=== PATIENT | female | born 1950 | race Caucasian/White ===

== ENCOUNTER 2018-12-24 16:06 | Inpatient (IN) ==
--- NOTE | 2018-12-24 17:29 | Emergency Department Note ---
Disposition Clinical Impression: Symptomatic anemia Disposition: Admitted As Inpatient Condition: Fair Referrals: Trav Vivar DO [Primary Care Provider] - Forms: ED Satisfaction Letter Recheck wound or abnormal lab - General Chief Complaint: ED Recheck/Abnormal Lab/Rx Stated Complaint: Low Hemoglobin Time Seen by Provider: 12/24/18 16:39 Source: family Limitations: no limitations Nursing Notes Reviewed: Yes Vital Signs Reviewed: Yes - History of Present Illness HPI Narrative: Patient presents to the ED from her primary care physician's office for symptomatic anemia. Patient's hemoglobin was found to be 4 today. Does appear to be microcytic. Patient states she has felt more tired than usual lately, but this is been ongoing for the last several years. She does have asked some exertional dyspnea. Denies any chest pain, pressure or heaviness currently. She does complain of some postprandial epigastric abdominal pain. She has a previous history of peptic ulcer disease many years ago and states this feels similar. She denies any melena or hematochezia. Denies any weight loss, night sweats, fever or chills. States she really feels okay otherwise and thought she was just getting old. - Related Data Home Medications Medication Instructions Recorded Confirmed Aspirin Enteric Coated [Aspirin EC] 81 mg PO DAILY 10/04/15 11/11/15 Atorvastatin [Lipitor] 40 mg PO DAILY 10/04/15 11/11/15 Cyanocobalamin/Folic AC/Vit B6 1 each PO DAILY 10/04/15 11/11/15 [Folbic Tablet] Escitalopram [Lexapro] 20 mg PO DAILY 10/04/15 11/11/15 Insulin Glargine [Lantus] 30 unit SQ HS 10/04/15 11/11/15 Lisinopril [Zestril] 20 mg PO DAILY 10/04/15 11/11/15 Lisinopril/Hydrochlorothiazide 1 each PO DAILY 10/04/15 11/11/15 [Zestoretic 20-25 mg Tablet] Metformin HCl [Glucophage] 500 mg PO BID 10/04/15 11/11/15 cloNIDine HCl [CloNIDine HCl] 0.3 mg PO DAILY 10/04/15 11/11/15 Previous Rx's Medication Instructions Recorded Magnesium Oxide [Mag-Ox] 400 mg PO DAILY #30 tablet 10/06/15 Potassium Chloride 20 meq PO DAILY #30 tab.er.prt 10/06/15 Cefdinir [Omnicef] 300 mg PO BID #18 capsule 11/10/15 Clopidogrel [Plavix] 75 mg PO DAILY #30 tablet 11/10/15 Metoprolol [Lopressor] 50 mg PO BID #60 tablet 11/10/15 Allergies Allergy/AdvReac Type Severity Reaction Status Date / Time Erythromycin Base Allergy Hives Verified 12/29/15 17:40 NSAIDS (Non-Steroidal Allergy See Verified 10/04/15 13:39 Anti-Inflamma Comments shellfish derived Allergy See Verified 10/04/15 13:39 Comments Sulfa (Sulfonamide Allergy See Verified 12/29/15 17:40 Antibiotics) Comments Review of Systems: As reviewed in the HPI. All other systems reviewed are negative or normal. Past Medical History - Past Medical History Attestation: Yes The following information was validated with the patient. 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 - Social History Smoking Status: Former smoker Smokeless Tobacco Status: No Alcohol use: Reports: none Drug use: Reports: none Physical Exam CONSTITUTIONAL: [well appearing, alert and in no acute distress] EYES: [EOMI, clear , but very pale conjunctiva, PERRLA] HENT: [Normocephalic, atraumatic, moist mucus membranes, normal oropharynx] NECK: [normal inspection, full ROM, trachea midline, no obvious swelling] PULMONARY: [normal lung sounds bilaterally, normal chest rise and fall, no respiratory distress or stridor, no wheezes, no rales, no rhonchi CARDIOVASCULAR: [regular rate, regular rhythm, normal heart sounds, no murmurs, distal extremities are warm and well perfused] GASTROINSTESTINAL: [soft, non-tender, non-rigid, non-distended, no guarding, no rebound, normal bowel sounds] GENITOURINARY/RECTAL: [deferred] NEUROLOGIC: [Alert, oriented x3, normal speech, moves all extremities] EXTREMITIES: [Normal inspection, full ROM, no tenderness, no pedal edema, normal capillary refill] MUSCULOSKELETAL: [no gross deformities, atraumatic] SKIN: [No cyanosis, no diaphoresis, + pale, warm, no rash] PSYCHIATRIC: [normal mood and affect] - General Limitations: no limitations General appearance: alert Course Course Narrative: Patient presenting with symptomatic anemia. We will transfuse and admit Vital Signs Temperature 96.9 F L 12/24/18 16:30 Pulse Rate 62 12/24/18 16:30 Respiratory Rate 18 12/24/18 16:30 Blood Pressure 106/69 12/24/18 16:30 O2 Sat by Pulse Oximetry 99 12/24/18 16:30 Temperature 96.9 F L 12/24/18 16:30 Pulse Rate 62 12/24/18 16:30 Respiratory Rate 18 12/24/18 16:30 Blood Pressure 106/69 12/24/18 16:30 O2 Sat by Pulse Oximetry 99 12/24/18 16:30 Oxygen Delivery Oxygen Delivery Room Air Recheck wound or abnormal lab - Lab Data Result diagrams: 12/24/18 16:41 Lab Results 12/24/18 12/24/18 12/24/18 Range/Units 16:41 16:55 16:55 Reticulocyte # 0.08 (0.05-0.10) M/mcL Percent Retic 3.1 H (1.6-2.8) % Immature Retic Fraction 19.9 (11.0-38.0) % Retic Hgb Equivalent 14.9 L (28.61-36.33) pg Sodium 138 (136-145) mEq/L Potassium 5.0 (3.5-5.1) mEq/L Chloride 102 (98-107) mEq/L Carbon Dioxide 19 L (23-29) mEq/L BUN 26 H (8-23) mg/dL Creatinine 0.90 (0.60-1.20) mg/dL Est GFR ( Amer) > 60 (> 60) Est GFR (Non-Af Amer) > 60 (> 60) BUN/Creatinine Ratio 29 H (6-26) Glucose 78 (70-105) mg/dL Calculated Osmolality 290 (280-300) Calcium 9.6 (8.6-10.3) mg/dL Iron 11 L (50-170) mcg/dL % Saturation 2 L (15-50) % Transferrin 400 H (203-362) mg/dL Total Bilirubin 0.4 (0.3-1.0) mg/dL AST 13 (13-39) Units/L ALT 9 (7-52) Units/L Alkaline Phosphatase 33 L (34-104) Units/L Serum Total Protein 7.2 (6.4-8.9) g/dL Albumin 4.4 (3.5-5.7) g/dL Globulin 2.8 (2.4-3.5) g/dL Albumin/Globulin Ratio 1.6 (1.1-2.2) Blood Type Antibody Screen Crossmatch 12/24/18 Range/Units 17:39 Reticulocyte # (0.05-0.10) M/mcL Percent Retic (1.6-2.8) % Immature Retic Fraction (11.0-38.0) % Retic Hgb Equivalent (28.61-36.33) pg Sodium (136-145) mEq/L Potassium (3.5-5.1) mEq/L Chloride (98-107) mEq/L Carbon Dioxide (23-29) mEq/L BUN (8-23) mg/dL Creatinine (0.60-1.20) mg/dL Est GFR ( Amer) (> 60) Est GFR (Non-Af Amer) (> 60) BUN/Creatinine Ratio (6-26) Glucose (70-105) mg/dL Calculated Osmolality (280-300) Calcium (8.6-10.3) mg/dL Iron (50-170) mcg/dL % Saturation (15-50) % Transferrin (203-362) mg/dL Total Bilirubin (0.3-1.0) mg/dL AST (13-39) Units/L ALT (7-52) Units/L Alkaline Phosphatase (34-104) Units/L Serum Total Protein (6.4-8.9) g/dL Albumin (3.5-5.7) g/dL Globulin (2.4-3.5) g/dL Albumin/Globulin Ratio (1.1-2.2) Blood Type A POSITIVE Antibody Screen NEGATIVE Crossmatch See Detail
--- NOTE | 2018-12-24 17:59 | Emergency Department Note ---
Disposition Clinical Impression: Symptomatic anemia Disposition: Admitted As Inpatient Condition: Fair General Adult HPI - General Chief complaint: ED Recheck/Abnormal Lab/Rx Stated complaint: Low Hemoglobin Time Seen by Provider: 12/24/18 16:39 Source: family Limitations: no limitations Nursing Notes Reviewed: Yes Vital Signs Reviewed: Yes - History of Present Illness Pain Scale: 5 - Related Data Home Medications Medication Instructions Recorded Confirmed Aspirin Enteric Coated [Aspirin EC] 81 mg PO DAILY 10/04/15 11/11/15 Atorvastatin [Lipitor] 40 mg PO DAILY 10/04/15 11/11/15 Cyanocobalamin/Folic AC/Vit B6 1 each PO DAILY 10/04/15 11/11/15 [Folbic Tablet] Escitalopram [Lexapro] 20 mg PO DAILY 10/04/15 11/11/15 Insulin Glargine [Lantus] 30 unit SQ HS 10/04/15 11/11/15 Lisinopril [Zestril] 20 mg PO DAILY 10/04/15 11/11/15 Lisinopril/Hydrochlorothiazide 1 each PO DAILY 10/04/15 11/11/15 [Zestoretic 20-25 mg Tablet] Metformin HCl [Glucophage] 500 mg PO BID 10/04/15 11/11/15 cloNIDine HCl [CloNIDine HCl] 0.3 mg PO DAILY 10/04/15 11/11/15 Previous Rx's Medication Instructions Recorded Magnesium Oxide [Mag-Ox] 400 mg PO DAILY #30 tablet 10/06/15 Potassium Chloride 20 meq PO DAILY #30 tab.er.prt 10/06/15 Cefdinir [Omnicef] 300 mg PO BID #18 capsule 11/10/15 Clopidogrel [Plavix] 75 mg PO DAILY #30 tablet 11/10/15 Metoprolol [Lopressor] 50 mg PO BID #60 tablet 11/10/15 Allergies Allergy/AdvReac Type Severity Reaction Status Date / Time Erythromycin Base Allergy Hives Verified 12/29/15 17:40 NSAIDS (Non-Steroidal Allergy See Verified 10/04/15 13:39 Anti-Inflamma Comments shellfish derived Allergy See Verified 10/04/15 13:39 Comments Sulfa (Sulfonamide Allergy See Verified 12/29/15 17:40 Antibiotics) Comments Past Medical History - Past Medical History Medical history: Reports: diabetes, hyperlipidemia, hypertension, TIA, other Surgical history: Reports: orthopedic, other Psychiatric history: Reports: no psych history 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 - Social History Smoking Status: Former smoker Smokeless Tobacco Status: No Alcohol use: Reports: none Drug use: Reports: none Physical Exam - General Limitations: no limitations General appearance: alert Course Vital Signs Temperature 96.9 F L 12/24/18 16:30 Pulse Rate 62 12/24/18 16:30 Respiratory Rate 18 12/24/18 16:30 Blood Pressure 106/69 12/24/18 16:30 O2 Sat by Pulse Oximetry 99 12/24/18 16:30 Temperature 97.6 F 12/24/18 20:22 Pulse Rate 62 12/24/18 20:22 Respiratory Rate 18 12/24/18 20:22 Blood Pressure 111/47 12/24/18 20:22 O2 Sat by Pulse Oximetry 99 12/24/18 16:30 Oxygen Delivery Oxygen Delivery Room Air Medical Decision Making - MDM Narrative Medical decision making narrative: 1899 hrs. due to her hemoglobin were in agreement transfers 2 units of packed red blood cells and admit. 2011 hrs.: Patient was except to the hospitalist service. She is in agreement with plan. Waiting on her packed red blood cells transfusion admit. 2034 hrs.: Patient said she felt like her blood sugars OL the nurse checked it was 50 regular some dextrose and she can actually have some liquids. She may end up with a colonoscopy tomorrow but I think it is okay for her to eat up to midnight today. - Lab Data Result diagrams: 12/24/18 16:41 Lab Results 12/24/18 12/24/18 12/24/18 Range/Units 16:41 16:55 16:55 Reticulocyte # 0.08 (0.05-0.10) M/mcL Percent Retic 3.1 H (1.6-2.8) % Immature Retic Fraction 19.9 (11.0-38.0) % Retic Hgb Equivalent 14.9 L (28.61-36.33) pg Sodium 138 (136-145) mEq/L Potassium 5.0 (3.5-5.1) mEq/L Chloride 102 (98-107) mEq/L Carbon Dioxide 19 L (23-29) mEq/L BUN 26 H (8-23) mg/dL Creatinine 0.90 (0.60-1.20) mg/dL Est GFR ( Amer) > 60 (> 60) Est GFR (Non-Af Amer) > 60 (> 60) BUN/Creatinine Ratio 29 H (6-26) Glucose 78 (70-105) mg/dL Calculated Osmolality 290 (280-300) Calcium 9.6 (8.6-10.3) mg/dL Iron 11 L (50-170) mcg/dL % Saturation 2 L (15-50) % Transferrin 400 H (203-362) mg/dL Total Bilirubin 0.4 (0.3-1.0) mg/dL AST 13 (13-39) Units/L ALT 9 (7-52) Units/L Alkaline Phosphatase 33 L (34-104) Units/L Serum Total Protein 7.2 (6.4-8.9) g/dL Albumin 4.4 (3.5-5.7) g/dL Globulin 2.8 (2.4-3.5) g/dL Albumin/Globulin Ratio 1.6 (1.1-2.2) Blood Type Antibody Screen Crossmatch 12/24/18 Range/Units 17:39 Reticulocyte # (0.05-0.10) M/mcL Percent Retic (1.6-2.8) % Immature Retic Fraction (11.0-38.0) % Retic Hgb Equivalent (28.61-36.33) pg Sodium (136-145) mEq/L Potassium (3.5-5.1) mEq/L Chloride (98-107) mEq/L Carbon Dioxide (23-29) mEq/L BUN (8-23) mg/dL Creatinine (0.60-1.20) mg/dL Est GFR ( Amer) (> 60) Est GFR (Non-Af Amer) (> 60) BUN/Creatinine Ratio (6-26) Glucose (70-105) mg/dL Calculated Osmolality (280-300) Calcium (8.6-10.3) mg/dL Iron (50-170) mcg/dL % Saturation (15-50) % Transferrin (203-362) mg/dL Total Bilirubin (0.3-1.0) mg/dL AST (13-39) Units/L ALT (7-52) Units/L Alkaline Phosphatase (34-104) Units/L Serum Total Protein (6.4-8.9) g/dL Albumin (3.5-5.7) g/dL Globulin (2.4-3.5) g/dL Albumin/Globulin Ratio (1.1-2.2) Blood Type A POSITIVE Antibody Screen NEGATIVE Crossmatch See Detail Critical Care Time Critical Care Time: Yes Total Critical Care Time: 45 Attestation: Excluding a separately billable procedures. Attestation Statement - Attestation Attestation: This documentation is done with the assistance of Dragon dictation. Despite efforts made to ensure accuracy, there may be inaccuracies in tool repairer bench or spelling and typographical errors. I examined this patient and my medical decision-making was reviewed with the Resident Physician. I agree with the documented findings, disposition and treatment plan as described except to the extent set forth below. Patient seen and evaluated by Dr. Swain and myself, I agree with his evaluation management plan, I supervised the care of the patient's stay. Patient comes in today from outpatient office where she was found to have a hemoglobin 4. She in our computer had a blood draw back in 2016 hemoglobin was low but was at least double this. She has had increased tiredness and some dyspnea. Were going to type and screen her check labs of bringing her into the hospital for workup. She is in agreement with plan.
[2018-12-24 18:16] LABS: Immature Reticulocyte % 19.9 % (11.0-38.0); Retculocyte # 0.08 M/mcL (0.05-0.10); Reticulocyte % 3.1 % (1.6-2.8)
[2018-12-24 18:33] LABS: % Iron Saturation 2 % (15-50); Iron 11 mcg/dL (50-170); Transferrin 400 mg/dL (203-362)
[2018-12-24 18:34] LABS: Alanine Aminotransferase 9 Units/L (7-52); Albumin 4.4 g/dL (3.5-5.7); Albumin/Globulin Ratio 1.6 (1.1-2.2); Alkaline Phosphatase 33 Units/L (34-104); Aspartate Amino Transferase 13 Units/L (13-39); BUN/Creatinine Ratio 29 (6-26); Bilirubin,Total 0.4 mg/dL (0.3-1.0); Blood Urea Nitrogen 26 mg/dL (8-23); Calcium 9.6 mg/dL (8.6-10.3); Carbon Dioxide 19 mEq/L (23-29); Chloride 102 mEq/L (98-107); Globulin 2.8 g/dL (2.4-3.5); Glucose 78 mg/dL (70-105); Osmolality,Calculated 290 (280-300); Sodium 138 mEq/L (136-145); Total Protein 7.2 g/dL (6.4-8.9); eGFR For Non-African Americans > 60 (> 60)
[2018-12-24] MEDS ORDERED: 0.9 % Sodium Chloride 1,000 ML ONE (20:02)
[2018-12-24] MEDS ORDERED: *HR* Dextrose 50 % in Water (Syg) 50 ML SYRINGE IVP ONE (20:34)
[2018-12-24] MEDS ORDERED: *HR* Dextrose 50 % in Water (Syg) 50 ML SYRINGE IVP PRN (22:14)
[2018-12-24] MEDS ORDERED: Naloxone 0.4 MG/ML INJ IVP PRN (22:14)
[2018-12-24] MEDS ORDERED: Dextrose Gel 15 GM/37.5 ML TUBE PO PRN ×2 (22:14)
[2018-12-24] MEDS ORDERED: Dextrose 4 GM Chewable Tablets PO PRN ×2 (22:14)
[2018-12-24] MEDS ORDERED: D5% in Water 1,000 ML IVC PRN (22:14)
[2018-12-24] MEDS ORDERED: 0.9 % Sodium Chloride 250 ML ONE (22:44)
[2018-12-24] MEDS: Pantoprazole 40 MG in 0.9 % Sodium Chloride Mini Bag 100 ML IVC SCH (23:12)
[2018-12-24] MEDS: Sucralfate 1 GM TABLET PO SCH (23:12)
[2018-12-24 23:25] LABS: Activated Partial Thrombo Time 34.9 Seconds (26.0-36.0)
[2018-12-24 23:41] LABS: INR 1.4; Prothrombin Time 15.7 Seconds (9.4-12.1)
[2018-12-25] MEDS: Insulin LISPRO 300 UNITS/3 ML VIAL SQ SCH ×5 (00:06→22:29)
--- NOTE | 2018-12-25 01:00 | Internal Med History&Physical ---
Date of Encounter: 12/24/18 Time of Encounter: 20:50 Internal Medicine - H&P: HPI Chief complaint: wekaness, lightheaded, ROUSE Admitted From: Emergency Dept Plans for Post Hospital Care: Home History of present illness: Ms. Ellsworth is a 68 year old female presents with a several week history of fatigue, weakness, lightheadedness, dizziness, occasional bouts of syncope, and with dyspnea on exertion. She was found to be profoundly anemic by lab analysis by her PCP. She was sent to the ER for evaluation and treatment and admission. Of note, her hemoglobin was 4.1. She was typed and crossed, started on PRBC transfusion, and admitted to hospitaist service. Upon my assessment of the patient in ER, patient is lying in bed comfortably without any distress. She is pale white and weak. She denies any chest pain, shortness of breath, or lightheadedness at this time. However, if she tries to stand up or ambulates, she gets profoundly symptomatic according to patient and her . Her states the symptoms have been present for several months actually rather than weeks. However, she has been mostly symptomatic over the last few weeks. She admits to having had melena for several weeks. She denies any coffee-ground emesis, hematemesis, or hematochezia. She does take a daily aspirin and Plavix. She denies any excessive NSAID use or abuse. She does not drink alcohol. She does have a prior stroke and therefore takes aspirin and Plavix. She denies any chronic anticoagulation. She did had a colonoscopy about 5 years ago, which was reportedly negative. She does have a history of gastric ulcers about 30 years ago. Past Med Surg Social Fam HX - Past Medical History Attestation: Yes The following information was validated with the patient. Source: patient, old records reviewed, obtained from family Medical history: diabetes, hyperlipidemia, hypertension, TIA, other Additional medical history: Anemia Psychiatric history: no psych history - Past Surgical History Surgical History: orthopedic, other Additional surgical history: RIGHT FOOT SX, NECK SX. - Social History Smoking Status: Former smoker Smokeless Tobacco Status: No Alcohol use: none Drug use: none Current living situation: Home, With Family Activity Level: Independent ambulation Recent Out of Country Travel Within the Last 8 Weeks: No - Family History Mother Adopted: No Family Member Ethnicity: Non- Living Status: Hx Family Cardiac Disorders: Yes Hx Family Endocrine Disorder: Yes Internal Medicine - H&P: Meds Aspirin Enteric Coated [Aspirin EC] 81 mg PO DAILY 10/04/15 [History] Atorvastatin [Lipitor] 40 mg PO DAILY 10/04/15 [History] Cyanocobalamin/Folic AC/Vit B6 [Folbic Tablet] 1 each PO DAILY 10/04/15 [History] Escitalopram [Lexapro] 20 mg PO DAILY 10/04/15 [History] Insulin Glargine [Lantus] 30 unit SQ HS 10/04/15 [History] Lisinopril [Zestril] 20 mg PO DAILY 10/04/15 [History] Lisinopril/Hydrochlorothiazide [Zestoretic 20-25 mg Tablet] 1 each PO DAILY 10/04/15 [History] Metformin HCl [Glucophage] 500 mg PO BID 10/04/15 [History] cloNIDine HCl [CloNIDine HCl] 0.3 mg PO DAILY 10/04/15 [History] Magnesium Oxide [Mag-Ox] 400 mg PO DAILY #30 tablet 10/06/15 [Rx] Potassium Chloride 20 meq PO DAILY #30 tab.er.prt 10/06/15 [Rx] Cefdinir [Omnicef] 300 mg PO BID #18 capsule 11/10/15 [Rx] Clopidogrel [Plavix] 75 mg PO DAILY #30 tablet 11/10/15 [Rx] Metoprolol [Lopressor] 50 mg PO BID #60 tablet 11/10/15 [Rx] Allergy/AdvReac Type Severity Reaction Status Date / Time Erythromycin Base Allergy Hives Verified 12/29/15 17:40 NSAIDS (Non-Steroidal Allergy See Verified 10/04/15 13:39 Anti-Inflamma Comments shellfish derived Allergy See Verified 10/04/15 13:39 Comments Sulfa (Sulfonamide Allergy See Verified 12/29/15 17:40 Antibiotics) Comments - Constitutional Constitutional: no chills, no fever(s), no night sweats - EENT Eyes: no blurry vision, no change in vision Ears: no ear pain, no tinnitus Nose, mouth and throat: no nasal congestion, no sinus pressure, no sore throat - Cardiovascular Cardiovascular ROS IM: dyspnea on exertion, lightheadedness, no chest pain, no dyspnea, no orthopnea, no paroxysmal nocturnal dyspnea, no syncope - Respiratory Respiratory: no cough, no hemoptysis, no chest congestion, no excessive phlegm production, no change in phlegm color - Gastrointestinal Gastrointestinal: early satiety, melena, no abdominal pain, no diarrhea, no heartburn, no hematemesis, no hematochezia, no vomiting - Genitourinary Genitourinary: no dysuria, no flank pain, no hematuria - Musculoskeletal Musculoskeletal ROS IM: no arthralgias, no back pain - Integumentary Integumentary IM: no rash, no jaundice - Neurological Neurological ROS: no disequilibrium, no dizziness, no focal weakness, no frequent falls, no headache(s) - Psychiatric Psychiatric: no anxiety, no depression - Endocrine Endocrine IM: no polydipsia, no polyuria - Allergic/Immunologic Allergic/Immunologic: GI upset with certain foods - Constitutional Vitals: Temp Pulse Resp BP Pulse Ox 98.4 F 61 20 132/73 91 12/25/18 00:32 12/25/18 00:32 12/25/18 00:32 12/25/18 00:32 12/25/18 00:32 General appearance: Present: cooperative, A&O X 3, pleasant, no acute distress, answers questions appropriately Exam: pale - Head Head exam: Present: atraumatic, normal inspection - Eye Eye exam: Present: PERRL. Absent: scleral icterus, conjuntiva pink Pupils: Present: normal accommodation - ENT ENT exam: Present: mucous membranes dry, normal exam, normal oropharynx - Neck Neck exam general surgery: Present: full ROM, supple, trachea midline. Absent: tenderness, nuchal rigidity, thyromegaly - Respiratory Respiratory exam: Present: CTAB. Absent: chest wall tenderness, rales, rhonchi, wheezes - Cardiovascular Cardiovascular exam: Present: RRR, +S1, +S2. Absent: diastolic murmur, systolic murmur - GI/Abdominal GI/Abdominal exam: Present: normal bowel sounds, soft. Absent: guarding, hepatomegaly, mass, rebound, splenomegaly, tenderness - Extremities Exam Extremities exam: Present: warm, radial pulses palpable and symmetrical. Absent: normal capillary refill (delayed at 3-4 seconds), pedal edema, tenderness - Back Exam Back exam: Absent: CVA tenderness (L), CVA tenderness (R) - Neurological Exam Neurological exam: Present: alert, CN II-XII intact, oriented X3, strengths equal and symetr throughout - Psychiatric Psychiatric exam: Present: normal affect, normal mood - Skin Skin exam: Present: dry, intact, pallor. Absent: warm (warm centrally; cool extremities) Internal Med - H&P Results - Labs CBC & Chem 7: 12/24/18 16:41 Labs: BMP 12/24/18 16:41 Sodium 138 Potassium 5.0 Chloride 102 Carbon Dioxide 19 L BUN 26 H Creatinine 0.90 Glucose 78 Calcium 9.6 Liver Function 12/24/18 Range/Units 16:41 Total Bilirubin 0.4 (0.3-1.0) mg/dL AST 13 (13-39) Units/L ALT 9 (7-52) Units/L Alkaline Phosphatase 33 L (34-104) Units/L Albumin 4.4 (3.5-5.7) g/dL Labs from her PCP office include the following: WBC 6.0 Hemoglobin 4.1 Hematocrit 17.6 Platelets 208 PT 15.7 INR 1.4 PTT 34.9 - EKG Data -: EKG Interpreted by Myself - EKG Data Prior EKG available for review: no EKG comments: 12/25/18 01:06 NSR; no acute ST changes - Assessment and Plan (1) Symptomatic anemia Current Visit: Yes Status: Acute Assessment and plan: 1. Will transfuse PRBC's. 2. Monitor H/H serially. 3. Monitor on telemetry. 4. Consult GI for EGD +/- colonoscopy. (2) Chronic upper GI bleeding Current Visit: Yes Status: Acute Assessment and plan: 1. Will place on Protonix drip, oral carafate, and stop ASA/Plavix for now. 2. GI consult for endoscopy. 3. Care as above otherwise. (3) IDDM (insulin dependent diabetes mellitus) Current Visit: Yes Status: Chronic Assessment and plan: 1. Hold home meds. 2. Will place on SSI and monitor glucose closely while npo. (4) DVT prophylaxis Current Visit: Yes Status: Acute Assessment and plan: 1. EPCD's.
[2018-12-25] MEDS ORDERED: 0.9 % Sodium Chloride 250 ML ONE (02:20)
[2018-12-25] MEDS: Pantoprazole 40 MG in 0.9 % Sodium Chloride Mini Bag 100 ML IVC SCH ×3 (03:32→15:07)
[2018-12-25 06:38] LABS: Basophils % 0.8 %; Eosinophils % 2.5 %; Hematocrit 32.1 % (35.3-44.9); Nucleated Red Blood Cells 0.6 /100 WBC (0); Segmented Neutrophils % 66.2 %
[2018-12-25 06:40] LABS: Eosinophils # 0.1 K/mcL (0.0-0.6); Hemoglobin 9.5 g/dL (11.5-15.4); Immature Granulocytes % 0.4 % (0-4); Immature Platelets 8.9 % (1.1-6.1); Lymphocytes # 1.1 K/mcL (0.6-4.6); Lymphocytes % 20.6 %; Mean Corpuscular HGB Conc 29.6 g/dL (31.6-35.5); Mean Corpuscular Hemoglobin 22.9 pg (28.0-33.3); Mean Corpuscular Volume 77.5 fL (83.0-100.0); Monocytes # 0.5 K/mcL (0.0-1.3); Monocytes % 9.5 %; Neutrophils # 3.4 K/mcL (1.6-8.9); Platelet Count 148 K/mcL (140-400); Red Blood Count 4.14 M/mcL (3.82-4.97); Red Cell Distribution Width 19.1 % (11.5-14.5)
[2018-12-25 06:57] LABS: Alanine Aminotransferase 8 Units/L (7-52); Albumin 3.9 g/dL (3.5-5.7); Albumin/Globulin Ratio 1.6 (1.1-2.2); Alkaline Phosphatase 30 Units/L (34-104); Aspartate Amino Transferase 11 Units/L (13-39); BUN/Creatinine Ratio 27 (6-26); Bilirubin,Total 1.3 mg/dL (0.3-1.0); Blood Urea Nitrogen 20 mg/dL (8-23); Calcium 9.2 mg/dL (8.6-10.3); Carbon Dioxide 25 mEq/L (23-29); Chloride 103 mEq/L (98-107); Globulin 2.5 g/dL (2.4-3.5); Glucose 98 mg/dL (70-105); Magnesium 1.7 mg/dL (1.6-2.6); Osmolality,Calculated 287 (280-300); Potassium 3.8 mEq/L (3.5-5.1); Sodium 137 mEq/L (136-145); Total Protein 6.4 g/dL (6.4-8.9); eGFR For Non-African Americans > 60 (> 60)
[2018-12-25 07:18] LABS: Anisocytosis 2+ (Not Present); Hypochromasia Present (Not Present); Microcytosis Present (Not Present); Platelet Estimate Normal (Normal)
[2018-12-25] MEDS: Sucralfate 1 GM TABLET PO SCH ×4 (08:35→22:29)
[2018-12-25 08:37] LABS: Estimated Average Glucose 131 mg/dl; Hemoglobin A1C 6.2 %
[2018-12-25] MEDS: Acetaminophen 325 MG TABLET PO PRN (10:06)
--- NOTE | 2018-12-25 11:13 | Gastroenterology Consult Note ---
Date of Encounter: 12/25/18 Time of Encounter: 10:00 - Assessment and plan (1) UGI bleed Current Visit: Yes Status: Acute Assessment and plan: -Likely 2/2 duodenal ulcer -Epigastric pain worse 20-30 min after eating with symptomatic anemia -Placed on protonix infusion and carafate -Hgb 4.1, retic 3.1, BUN 26 on arrival and received 3 units prbc -Hgb 9.5, MCV 77.5, BUN 20 today -Fe and %sat low with high transferrin on arrival -Will get EGD today for UGI bleeding assessment and monitor H&H for additional transfusion needs (2) Symptomatic anemia Current Visit: Yes Status: Acute Assessment and plan: -As above - Time Spent With Patient Total time spent is greater than 50% in coordination of care (as documented) at patient's floor/unit and/or counseling patient: GI History of Present Illness - Data of Consult Patient: new to practice Consult date: 12/25/18 Requesting Physician: Buck Dasilva MD - Consult Narrative Reason for consult: GI bleed History of present illness: Ms. Ellsworth is a 68 year old female with pmh significant for prior gastric ulcer with bleed, HTN, HLD, DM. She has had increasing fatigue, weakness, dizziness, and dyspnea on exertion with questionable syncope over the last 3-4 months. Over the last few weeks however symptoms have been worse and noticed melena during this time along with epigastric pain that is worse about 20-30 min after eating. She has had similar symptoms 5-6 years ago and found bleeding ulcer on EGD. She was placed on ppi after but has not taken it for a number of years. She was evaluated at pcp and found to be severely anemic and sent to ED. In the ED she was found to have a hgb of 4.14 and started on pantoprazole infusion, carafate and given 3 units prbc. She denies diplopia, blurry vision, chest pain, palpitations, N/V, hematemesis, abdominal pain elsewhere,hematochezia, hematuria, nsaid use other than her asa. She additionally takes clopidogrel and rivaroxaban after prior cva. Past Med Surg Social Fam HX - Past Medical History Medical history: diabetes, hyperlipidemia, hypertension, TIA, other Additional medical history: Anemia Psychiatric history: no psych history - Past Surgical History Surgical History: orthopedic, other Additional surgical history: RIGHT FOOT SX, NECK SX. - Social History Smoking Status: Former smoker Smokeless Tobacco Status: No Alcohol use: none Drug use: none - Family History Mother Adopted: No Family Member Ethnicity: Non- Living Status: Hx Family Cardiac Disorders: Yes Hx Family Endocrine Disorder: Yes - Constitutional Vitals: Temp Pulse Resp BP Pulse Ox 97.6 F 74 18 151/81 94 12/25/18 09:08 12/25/18 09:08 12/25/18 09:08 12/25/18 09:08 12/25/18 09:08 General appearance: Present: cooperative, A&O X 3, pleasant, no acute distress, answers questions appropriately - Head Head exam: Present: atraumatic, normal inspection, normocephalic - Eye Eye exam: Absent: normal appearance, scleral icterus, conjuntiva pink - ENT ENT exam: Present: mucous membranes dry - Neck Neck exam general surgery: Present: supple, trachea midline - Respiratory Respiratory exam: Present: CTAB. Absent: accessory muscle use, chest wall tenderness, decreased breath sounds, prolonged expiratory phase, rales, respiratory distress, rhonchi, stridor, wheezes, tachypnea - Cardiovascular Cardiovascular exam: Present: RRR, +S1, +S2. Absent: bradycardia, clicks, diastolic murmur, distant heart sounds, gallop, irregular rhythm, JVD, rubs, +S 3, +S4, systolic murmur, tachycardia - GI/Abdominal GI/Abdominal exam: Present: soft, tenderness (epigastric), no peritoneal signs. Absent: distended, firm, guarding, hepatomegaly, rebound, rigid, splenomegaly - Extremities Exam Extremities exam: Present: normal capillary refill, normal inspection, warm, radial pulses palpable and symmetrical. Absent: calf tenderness, cyanotic, mottling, pedal edema, tenderness - Neurological Exam Neurological exam: Present: alert, CN II-XII intact, no focal deficits. Absent: facial droop, speech deficit - Psychiatric Psychiatric exam: Present: normal affect, normal mood - Skin Skin exam: Present: dry, intact, pallor, warm. Absent: abrasion, cyanosis, diaphoretic, erythema, excoriation, mottled, normal color, petechiae, rash, urticaria, vesicles Results - Labs CBC & Chem 7: 02/26/19 05:47 12/25/18 05:47 Labs: Last Result Calcium 9.2 mg/dL (8.6-10.3) 12/25/18 05:47 Iron 11 mcg/dL (50-170) L 12/24/18 16:55 % Saturation 2 % (15-50) L 12/24/18 16:55 Transferrin 400 mg/dL (203-362) H 12/24/18 16:55 Entire Visit Hgb 9.5 g/dL (11.5-15.4) L D 12/25/18 05:47 Hct 32.1 % (35.3-44.9) L 12/25/18 05:47 PT 15.7 Seconds (9.4-12.1) H 12/24/18 22:56 Total Bilirubin 1.3 mg/dL (0.3-1.0) H 12/25/18 05:47 AST 11 Units/L (13-39) L 12/25/18 05:47 ALT 8 Units/L (7-52) 12/25/18 05:47 - ABG ABG results: PT/INR, D-dimer PT 15.7 Seconds (9.4-12.1) H 12/24/18 22:56 Consult Discharge Plan - Plan Referrals: Trav Vivar DO [Primary Care Provider] -
[2018-12-25 11:20] LABS: Hematocrit 33.4 % (35.3-44.9); Hemoglobin 10.2 g/dL (11.5-15.4)
--- NOTE | 2018-12-25 12:55 | Anesthesia Evaluation PreOp ---
Date of Encounter: 12/25/18 Time of Encounter: 12:52 - Past History Planned Operation: EGD Cardiac History: HTN, Hyperlipidemia Pulmonary History: Denies Any Significant HX DESK SERGEANT History: TIA Other Medical History: Other (GI bleed, anemia) Anesthesia History: No Prior Anesthetic Complications, Past Anesthesia (R foot, neck) Alcohol Use: none Drug use: none Medications and Allergies Aspirin Enteric Coated [Aspirin EC] 81 mg PO DAILY 10/04/15 [History] Atorvastatin [Lipitor] 40 mg PO DAILY 10/04/15 [History] Cyanocobalamin/Folic AC/Vit B6 [Folbic Tablet] 1 each PO DAILY 10/04/15 [History] Escitalopram [Lexapro] 20 mg PO DAILY 10/04/15 [History] Insulin Glargine [Lantus] 30 unit SQ HS 10/04/15 [History] Lisinopril [Zestril] 20 mg PO DAILY 10/04/15 [History] Lisinopril/Hydrochlorothiazide [Zestoretic 20-25 mg Tablet] 1 each PO DAILY 10/04/15 [History] Metformin HCl [Glucophage] 500 mg PO BID 10/04/15 [History] cloNIDine HCl [CloNIDine HCl] 0.3 mg PO DAILY 10/04/15 [History] Magnesium Oxide [Mag-Ox] 400 mg PO DAILY #30 tablet 10/06/15 [Rx] Potassium Chloride 20 meq PO DAILY #30 tab.er.prt 10/06/15 [Rx] Clopidogrel [Plavix] 75 mg PO DAILY #30 tablet 11/10/15 [Rx] Metoprolol [Lopressor] 50 mg PO BID #60 tablet 11/10/15 [Rx] Rivaroxaban [Xarelto] 20 mg PO DAILY@1700 12/25/18 [History] Allergy/AdvReac Type Severity Reaction Status Date / Time Erythromycin Base Allergy Hives Verified 12/29/15 17:40 NSAIDS (Non-Steroidal Allergy See Verified 10/04/15 13:39 Anti-Inflamma Comments shellfish derived Allergy See Verified 10/04/15 13:39 Comments Sulfa (Sulfonamide Allergy See Verified 12/29/15 17:40 Antibiotics) Comments - Meds/Allergy Pre-op Review Medications Reviewed: Yes Allergies Reviewed: Yes Beta Blockers on Current Med List: No Anesthesia Results - Labs 12/25/18 10:47 12/25/18 05:47 - Imaging EKG: report reviewed (NSR) Additional studies: Impressions: LVEF 60%. Normal left ventricular structure and function. Normal right ventricular structure and function. No evidence of PFO with agitated saline contrast. This was a limited study. See prior report dated 10/05/2015 for further details. Anesthesia Exam Vital Signs/O2 Sat, Most Current Temp Pulse Resp BP Pulse Ox 98.4 F 66 18 132/65 92 12/25/18 11:13 12/25/18 11:13 12/25/18 11:13 12/25/18 11:13 12/25/18 11:13 Weight: 62kg NPO (# of Hours): >8 - HEENT Pupil (Motor): Pupils equal, EOMI Mallampati: II Teeth: Normal Oral Opening: Greater than 3 - DESK SERGEANT LOC: Oriented DESK SERGEANT Motor: Normal RUE, Normal LUE, Normal RLE, Normal LLE, Normal Face DESK SERGEANT Sensory: Normal: RUE, LUE, RLE, LLE, Face - Cardiac Rhythm: Regular - Pulmonary Breath Sounds: bilateral Clear Respiratory Effort: Symmetrical Anesthesia Assess/Plan ASA Score: 3 (HTN, hyperlipidemia, TIA, GI bleed) Level of consciousness: Cooperative Anesthetic Plan: MAC Monitoring Plan: Standard Monitors Recovery Plan: PACU
--- NOTE | 2018-12-25 13:41 | Internal Med Progress Note ---
Hospitalist Progress Note - Encounter Date of Encounter: 12/25/18 Time of Encounter: 13:38 - Subjective Interval History: I have seen and evaluated the patient at bedside. patient denies chest pain, shortness of breath, nausea or vomiting. - Exam Vitals: Temp Pulse Resp BP Pulse Ox 98.4 F 66 18 132/65 92 12/25/18 11:13 12/25/18 11:13 12/25/18 11:13 12/25/18 11:13 12/25/18 11:13 Exam: Vitals: Reviewed General: Alert and oriented x4. In no distress. Cardiovascular: RRR, normal S1 & S2, no rubs, murmurs or gallops. No JVD. Pulse regular. Lungs: scattered b/l wheezes, no crackles. Abdomen: Soft, non-tender, no rigidity. Extremities: No deformity, no edema or tenderness, no joint swelling or clubbing. Neurological: Normal cognition and motor skills. Rest of the physical exam is non contributory - Assessment and Plan (1) Symptomatic anemia Current Visit: Yes Status: Acute Assessment and Plan: patient s/p 3 units of PRBCs transfusion. on PPI and sulcrafate 1gm/PO QID patient scheduled for GI work up NPO, on accu-checks Q6HRs plus lispro low dose sliding scale (2) UGI bleed Current Visit: Yes Status: Acute Assessment and Plan: plan of care as above (3) Hypertension Current Visit: No Status: Chronic Assessment and Plan: patient on metoprolol 50mg/PO BID and lisinopril. will resume home medications. (4) Insulin dependent diabetes mellitus Current Visit: No Status: Chronic Assessment and Plan: patient is NPO for GI work up. continue lispro low dose sliding scale Q6HRs. (5) Hyperlipemia Current Visit: No Status: Chronic Assessment and Plan: will resume atorvastatin 40mg/PO daily (6) History of CVA (cerebrovascular accident) Current Visit: No Status: Chronic Assessment and Plan: patient on aspirin and plavix. held due to anemia and possible GI bleeding DVT Prophylaxis: intermittent pneumatic compression. - Summary of Assessment and Plan Summary of Assessment and Plan: patient to remain in the hospital to complete GI work up. potential discharge tomorrow - Time Spent with Patient Total time spent is greater than 50% in coordination of care (as documented) at patient's floor/unit and/or counseling patient: Greater than 35 minutes (40) Plan of Care Discussed with: patient (and the nurse) Internal Medicine: Result - Labs CBC & Chem 7: 12/25/18 10:47 12/25/18 05:47 Labs: Short CBC 12/25/18 12/25/18 Range/Units 05:47 10:47 WBC 5.1 (4.3-11.1) K/mcL Hgb 9.5 L D 10.2 L (11.5-15.4) g/dL Hct 32.1 L 33.4 L (35.3-44.9) % Plt Count 148 (140-400) K/mcL Neutrophils # 3.4 (1.6-8.9) K/mcL BMP 12/24/18 12/25/18 16:41 05:47 Sodium 138 137 Potassium 5.0 3.8 Chloride 102 103 Carbon Dioxide 19 L 25 BUN 26 H 20 Creatinine 0.90 0.74 Glucose 78 98 Calcium 9.6 9.2 Liver Function 12/24/18 12/25/18 Range/Units 16:41 05:47 Total Bilirubin 0.4 1.3 H (0.3-1.0) mg/dL AST 13 11 L (13-39) Units/L ALT 9 8 (7-52) Units/L Alkaline Phosphatase 33 L 30 L (34-104) Units/L Albumin 4.4 3.9 (3.5-5.7) g/dL - ABG Interpretation ABG results: PT/INR, D-dimer PT 15.7 Seconds (9.4-12.1) H 12/24/18 22:56 Consult Discharge Plan - Plan Referrals: Trav Vivar DO [Primary Care Provider] - _ (3) Hypertension Qualifiers: Hypertension type: essential hypertension Qualified Code(s): I10 - Essential (primary) hypertension (5) Hyperlipemia Qualifiers: Hyperlipidemia type: unspecified Qualified Code(s): E78.5 - Hyperlipidemia, unspecified
[2018-12-25] MEDS ORDERED: *HR* Propofol 200 MG/20 ML VIAL IVP ONE (14:01)
[2018-12-25] MEDS ORDERED: Lidocaine -MPF 2% 2 ML VIAL ONE (14:01)
[2018-12-25] MEDS ORDERED: 0.9 % Sodium Chloride 500 ML IVC SCH (14:15)
[2018-12-25] MEDS ORDERED: Albuterol 2.5 MG/3 ML NEBULIZER ONE (14:21)
[2018-12-25] MEDS ORDERED: Albuterol 2.5 MG/3 ML NEBULIZER IH ONE (14:23)
[2018-12-25] MEDS ORDERED: Tetracaine/Benzocaine/Butamben 1 SPRAY AEROSOL MM ONE (14:24)
--- NOTE | 2018-12-25 14:30 | Anesthesia Evaluation Post Op ---
Date of Encounter: 12/25/18 Time of Encounter: 14:29 - Vital Signs Vital Signs: Vital Signs/O2 Sat, Most Current Temp Pulse Resp BP Pulse Ox 98.4 F 71 16 148/72 93 12/25/18 13:34 12/25/18 13:34 12/25/18 13:34 12/25/18 13:34 12/25/18 13:34 - Lungs Lungs: Clear Ascult./Percussion - Airway Airway: Non-obstructed - Cardiovascular Regular Rate - Mental Status Mental Status: Alert & Oriented, Answers Appropriately - Pain Pain Scale: 0 Pain Scale used: Numeric (1 - 10) - Nausea Vomiting Nausea Vomiting: Not Present - Hydration Hydration: Tolerates oral liquids - Discharge PostOp Status: Transfer Patient to floor
[2018-12-25 16:23] LABS: Hematocrit 34.5 % (35.3-44.9); Hemoglobin 10.3 g/dL (11.5-15.4)
[2018-12-25] MEDS: Ipratropium/Albuterol Neb 3 ML IH SCH ×2 (16:40→20:07)
[2018-12-25] MEDS: Pantoprazole 40 MG VIAL IVP SCH (17:02)
--- NOTE | 2018-12-25 18:27 | Electrocardiograph Report ---
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
--- NOTE | 2018-12-25 18:34 | Electrocardiograph Report ---
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
[2018-12-25 21:58] LABS: Hematocrit 34.3 % (35.3-44.9); Hemoglobin 10.2 g/dL (11.5-15.4)
[2018-12-25] MEDS: Ondansetron 4 MG/2 ML VIAL IVP PRN (22:29)
[2018-12-26] MEDS: Ipratropium/Albuterol Neb 3 ML IH SCH ×7 (00:10→23:21)
[2018-12-26] MEDS: Acetaminophen 325 MG TABLET PO PRN ×2 (04:19→21:08)
[2018-12-26 04:56] LABS: Hematocrit 33.9 % (35.3-44.9)
[2018-12-26 04:58] LABS: Hemoglobin 10.1 g/dL (11.5-15.4)
[2018-12-26] MEDS: Pantoprazole 40 MG VIAL IVP SCH (05:33)
[2018-12-26] MEDS: Sucralfate 1 GM TABLET PO SCH ×4 (07:42→21:08)
[2018-12-26] MEDS: Insulin LISPRO 300 UNITS/3 ML VIAL SQ SCH ×4 (07:43→21:08)
[2018-12-26 09:55] LABS: Hemoglobin 9.7 g/dL (11.5-15.4)
[2018-12-26] MEDS ORDERED: *HR* Metoprolol 5 MG/5 ML VIAL IVP ONE ×2 (11:35→18:03)
[2018-12-26 12:50] LABS: Hematocrit 33.2 % (35.3-44.9); Hemoglobin 10.2 g/dL (11.5-15.4)
[2018-12-26] MEDS ORDERED: Insulin DETEMIR 100 UNIT/ML X5UNITS SQ SCH (21:00)
[2018-12-26] MEDS ORDERED: Magnesium Oxide 400 MG TABLET PO SCH (21:00)
[2018-12-26] MEDS ORDERED: Melatonin 3 MG TABLET PO SCH (21:00)
[2018-12-26] MEDS: levETIRAcetam 250 MG TABLET PO SCH (21:08)
[2018-12-26] MEDS: Ondansetron 4 MG/2 ML VIAL IVP PRN (21:08)
--- NOTE | 2018-12-26 21:11 | Internal Med Progress Note ---
Hospitalist Progress Note - Encounter Date of Encounter: 12/26/18 Time of Encounter: 19:00 - Subjective Interval History: SUBJECTIVE: The patient feels pretty good. She is strongerreceived a total of 3 units of packed red blood cells. Denies resting dyspnea; using supplemental oxygen at 2 L/min. Denies chest pain. Denies abdominal pain, nausea and vomiting. She has normal urination. OBJECTIVE: Skin: Free of rash and discoloration. ENMT: Oral/pharyngeal mucosa is normal in appearance. Eyes: Sclera is white. There is no discharge from eyes. Respiratory: Normal breath sounds; no crackles or wheezes. CV: Heart is regular; no gallop or murmur. GI: Abdomen is soft and not tender. There is no palpable mass or visceromegaly. Neuro: There is no focal deficits. ADDITIONAL DATA: Her hemoglobin from today is 10.1, 9.7 and 10.2. Fingersticks for glucose from today are 230, 267 and 239. ECG from today shows sinus tachycardia. ASSESSMENT AND PLAN: Symptomatic anemia. Better after transfusion of 3 units of packed red blood cells. EGD done yesterday showed gastric ulcers; I am waiting for official report. She gets Prilosec at 40 mg twice a day. Type 2 diabetes mellitus, uncontrolled. She gets when necessary Humalog. I am going to put her on long acting Levemir; was taking Lantus at home. History of PAF. She carries a loop recorder. Currently well fighting with her sinus tachycardia. She got 2 doses of IV Lopressor. I am going to restart her metoprolol. The patient had at least 2 episodes of CVA in the past. DISPOSITION: I am hoping to discharge her home tomorrow, if she is stable. - Exam Vitals: Temp Pulse Resp BP Pulse Ox 97.9 F 119 16 118/72 91 12/26/18 20:50 12/26/18 20:50 12/26/18 20:50 12/26/18 20:50 12/26/18 20:50 Exam: xx - Assessment and Plan (1) Symptomatic anemia Current Visit: Yes Status: Acute (2) Gastric ulcer Current Visit: Yes Status: Acute (3) Insulin dependent diabetes mellitus Current Visit: No Status: Chronic (4) PAF (paroxysmal atrial fibrillation) Current Visit: Yes Status: Chronic (5) Hypertension Current Visit: No Status: Chronic (6) Hyperlipemia Current Visit: No Status: Chronic (7) History of CVA (cerebrovascular accident) Current Visit: No Status: Chronic (8) Seizure disorder Current Visit: Yes Status: Acute - Time Spent with Patient Total time spent is greater than 50% in coordination of care (as documented) at patient's floor/unit and/or counseling patient: 25 - 35 minutes Plan of Care Discussed with: patient (and family...) Internal Medicine: Result - Labs CBC & Chem 7: 12/26/18 12:28 12/25/18 05:47 Labs: Short CBC 12/25/18 12/26/18 12/26/18 Range/Units 21:29 04:41 09:41 Hgb 10.2 L 10.1 L 9.7 L (11.5-15.4) g/dL Hct 34.3 L 33.9 L 33.0 L (35.3-44.9) % 12/26/18 Range/Units 12:28 Hgb 10.2 L (11.5-15.4) g/dL Hct 33.2 L (35.3-44.9) % - ABG Interpretation ABG results: PT/INR, D-dimer PT 15.7 Seconds (9.4-12.1) H 12/24/18 22:56 Consult Discharge Plan - Plan Referrals: Trav Vivar DO [Primary Care Provider] - 12/31/18 1:00 pm (Please follow up as schedule...) (2) Gastric ulcer Qualifiers: Gastric ulcer chronicity: acute Gastric ulcer complication status: unspecified whether hemorrhage or perforation present Qualified Code(s): K25.3 - Acute gastric ulcer without hemorrhage or perforation (5) Hypertension Qualifiers: Hypertension type: essential hypertension Qualified Code(s): I10 - Essential (primary) hypertension (6) Hyperlipemia Qualifiers: Hyperlipidemia type: unspecified Qualified Code(s): E78.5 - Hyperlipidemia, unspecified
[2018-12-27 04:38] LABS: Basophils % 0.3 %; Eosinophils # 0.1 K/mcL (0.0-0.6); Eosinophils % 0.8 %; Hematocrit 30.6 % (35.3-44.9); Hemoglobin 9.3 g/dL (11.5-15.4); Immature Granulocytes % 0.2 % (0-4); Immature Platelets 7.8 % (1.1-6.1); Lymphocytes # 1.6 K/mcL (0.6-4.6); Lymphocytes % 17.8 %; Mean Corpuscular HGB Conc 30.4 g/dL (31.6-35.5); Mean Corpuscular Hemoglobin 23.4 pg (28.0-33.3); Mean Corpuscular Volume 77.1 fL (83.0-100.0); Mean Platelet Volume 11.8 fL (9.4-12.4); Monocytes % 11.1 %; Nucleated Red Blood Cells 0.3 /100 WBC (0); Platelet Count 202 K/mcL (140-400); Red Blood Count 3.97 M/mcL (3.82-4.97); Red Cell Distribution Width 20.8 % (11.5-14.5); Segmented Neutrophils % 69.8 %
[2018-12-27] MEDS: Ipratropium/Albuterol Neb 3 ML IH SCH ×4 (04:39→15:29)
[2018-12-27 04:40] LABS: Neutrophils # 6.1 K/mcL (1.6-8.9)
[2018-12-27 04:53] LABS: BUN/Creatinine Ratio 19 (6-26); Blood Urea Nitrogen 15 mg/dL (8-23); Calcium 9.2 mg/dL (8.6-10.3); Carbon Dioxide 22 mEq/L (23-29); Chloride 105 mEq/L (98-107); Glucose 215 mg/dL (70-105); Magnesium 1.5 mg/dL (1.6-2.6); Osmolality,Calculated 289 (280-300); Potassium 3.9 mEq/L (3.5-5.1); Sodium 136 mEq/L (136-145); eGFR For Non-African Americans > 60 (> 60)
[2018-12-27] MEDS: levETIRAcetam 250 MG TABLET PO SCH (08:19)
[2018-12-27] MEDS: Insulin LISPRO 300 UNITS/3 ML VIAL SQ SCH ×2 (08:19→11:47)
[2018-12-27] MEDS: Sucralfate 1 GM TABLET PO SCH ×2 (08:19→11:47)
[2018-12-27] MEDS ORDERED: Magnesium Oxide 400 MG TABLET PO SCH (09:00)
[2018-12-27] MEDS ORDERED: Vitamin B Complex/Vit C/Vit E 1 EACH TABLET PO SCH (09:00)
[2018-12-27] MEDS ORDERED: Aspirin Enteric Coated 81 MG Tablet PO SCH (09:00)
[2018-12-27 11:23] VITALS: BP 111/75
--- NOTE | 2018-12-27 13:29 | Discharge Summary ---
Orders not resulted at time of discharge: Pending orders 12/28/18 04:00 BMP [Basic Metabolic Panel] AM 0400 CBC [Complete Blood Count] [HEME] AM 0400 Date of Encounter: 12/27/18 Time of Encounter: 13:27 - Discharge Diagnosis (1) Symptomatic anemia Priority: Primary Status: Acute (2) Gastric ulcer Priority: Primary Status: Acute Qualifiers: Gastric ulcer chronicity: acute Gastric ulcer complication status: unspecified whether hemorrhage or perforation present Qualified Code(s): K25.3 - Acute gastric ulcer without hemorrhage or perforation (3) Insulin dependent diabetes mellitus Priority: Secondary Status: Chronic (4) PAF (paroxysmal atrial fibrillation) Priority: Secondary Status: Chronic (5) Hypertension Priority: Secondary Status: Chronic Qualifiers: Hypertension type: essential hypertension Qualified Code(s): I10 - Essential (primary) hypertension (6) Hyperlipemia Priority: Secondary Status: Chronic Qualifiers: Hyperlipidemia type: unspecified Qualified Code(s): E78.5 - Hyperlipidemia, unspecified (7) History of CVA (cerebrovascular accident) Priority: Secondary Status: Chronic (8) Seizure disorder Priority: Secondary Status: Chronic Hospital course: Ms. Ellsworth is a 68 year old female Discharge discussed with: patient, family - Time Spent with Patient Total time spent providing and/or coordinating discharge services: Time spent: Greater than 30 minutes (40 minutes...) - Discharge Medications Prescriptions: New Acetaminophen [Tylenol] 650 mg PO Q6HR PRN tablet PRN Reason: Mild Pain/Fever Ferrous Sulfate 325 mg PO BID #60 tablet Omeprazole [PriLOSEC] 40 mg PO QAM 30 Days #30 capsule.dr Continue Atorvastatin [Lipitor] 20 mg PO DAILY Lisinopril [Zestril] 20 mg PO DAILY Escitalopram [Lexapro] 20 mg PO DAILY Aspirin Enteric Coated [Aspirin EC] 81 mg PO DAILY Metformin HCl [Glucophage] 500 mg PO BIDWM Insulin Glargine [Lantus] 18 unit SQ HS Metoprolol [Lopressor] 50 mg PO BID #60 tablet Calcium/Vit B12/FA/Pyridoxine [Folic Acid-Vit B6-Vit B12 Tab] 1 each PO DAILY Cyanocobalamin/Folic AC/Vit B6 [Folbic Tablet] 1 each PO DAILY Insulin LISPRO [Admelog] 0 unit SQ ACHS LevETIRAcetam [Keppra] 500 mg PO BID Magnesium Oxide [Mag-Ox] 400 mg PO BID Melatonin 5 mg PO HS OxyCODONE Immed Rel [Roxicodone 5 MG] 5 mg PO Q8HR PRN PRN Reason: Pain Rivastigmine Tartrate (oral) [Exelon] 1.5 mg PO BID Triamterene/Hydrochlorothiazid [Triamterene-Hctz 75-50 mg Tab] 1 tab PO DAILY Discontinued Rivaroxaban [Xarelto] 20 mg PO DAILY@1700 Home Medications: Aspirin Enteric Coated [Aspirin EC] 81 mg PO DAILY 10/04/15 [History] Atorvastatin [Lipitor] 20 mg PO DAILY 10/04/15 [History] Escitalopram [Lexapro] 20 mg PO DAILY 10/04/15 [History] Insulin Glargine [Lantus] 18 unit SQ HS 10/04/15 [History] Lisinopril [Zestril] 20 mg PO DAILY 10/04/15 [History] Metformin HCl [Glucophage] 500 mg PO BIDWM 10/04/15 [History] Metoprolol [Lopressor] 50 mg PO BID #60 tablet 11/10/15 [Rx] Calcium/Vit B12/FA/Pyridoxine [Folic Acid-Vit B6-Vit B12 Tab] 1 each PO DAILY 12/25/18 [History] Cyanocobalamin/Folic AC/Vit B6 [Folbic Tablet] 1 each PO DAILY 12/25/18 [History] Insulin LISPRO [Admelog] 0 unit SQ ACHS 12/25/18 [History] LevETIRAcetam [Keppra] 500 mg PO BID 12/25/18 [History] Magnesium Oxide [Mag-Ox] 400 mg PO BID 12/25/18 [History] Melatonin 5 mg PO HS 12/25/18 [History] OxyCODONE Immed Rel [Roxicodone 5 MG] 5 mg PO Q8HR PRN 12/25/18 [History] Rivastigmine Tartrate (oral) [Exelon] 1.5 mg PO BID 12/25/18 [History] Triamterene/Hydrochlorothiazid [Triamterene-Hctz 75-50 mg Tab] 1 tab PO DAILY 12/25/18 [History] Acetaminophen [Tylenol] 650 mg PO Q6HR PRN tablet 12/27/18 [Rx] Ferrous Sulfate 325 mg PO BID #60 tablet 12/27/18 [Rx] Omeprazole [PriLOSEC] 40 mg PO QAM 30 Days #30 capsule. 12/27/18 [Rx] Allergies/Adverse Reactions: Allergy/AdvReac Type Severity Reaction Status Date / Time Erythromycin Base Allergy Hives Verified 12/29/15 17:40 NSAIDS (Non-Steroidal Allergy See Verified 10/04/15 13:39 Anti-Inflamma Comments shellfish derived Allergy See Verified 10/04/15 13:39 Comments Sulfa (Sulfonamide Allergy See Verified 12/29/15 17:40 Antibiotics) Comments Date of admission: 12/24/18 22:14 Primary care physician: Trav Vivar DO Consults: 12/24/18 22:17 Consult to Physician [CONS] Routine Consulting Provider: Kathya Rodriguez Reason for Consult: GI BLEED; H/O GASTRIC ULCERS; ON ASA/PLAVIX Call Completed: No Discharging clinician: Bret Rey Anticipated date of discharge: 12/27/18 - Constitutional Vitals: Temp Pulse Resp BP Pulse Ox 98.3 F 97 18 111/75 90 12/27/18 11:17 12/27/18 11:17 12/27/18 11:18 12/27/18 11:17 12/27/18 11:18 General appearance: Present: A&O X 3, no acute distress, answers questions appropriately Exam: xx - Patient Status Disposition: Home, Self-Care Condition: Fair Functional capacity at discharge: independent ambulation Overall status at discharge: patient is progressing back to baseline - Discharge Instructions Follow Up With: Trav Vivar DO [Primary Care Provider] - 12/31/18 1:00 pm (Please follow up as schedule...) Additional Instructions: FOLLOW-UP WITH GI (DR. MCDONOUGH) -- in 2 weeks... CBC - in 10 days... No Xarelto for now; has to be cleared by GI... Follow-up with cardiology - as scheduled before... - Diet and Activity Activity: increase activity as tolerated Diet: diabetic diet
--- NOTE | 2018-12-27 14:40 | Physician Discharge Referral ---
Home Health/Hosp Referral Info Transfer to: Home Health Attending Provider: Pooja Rey Provider in Charge Post Discharge: PCP - Diagnosis (1) Symptomatic anemia Priority: Primary Status: Acute (2) Gastric ulcer Priority: Primary Status: Acute (3) Insulin dependent diabetes mellitus Priority: Secondary Status: Chronic (4) PAF (paroxysmal atrial fibrillation) Priority: Secondary Status: Chronic (5) Hypertension Priority: Secondary Status: Chronic (6) Hyperlipemia Priority: Secondary Status: Chronic (7) History of CVA (cerebrovascular accident) Priority: Secondary Status: Chronic (8) Seizure disorder Priority: Secondary Status: Chronic - Respiratory Orders None Smoking Cessation: Smoking cessation has been advised. For more information, call the [place] Tobacco Quit Line at 6-678-ZZHK-NOW. - Diet/Nutrition Diet/Nutrition Orders: No Concentrated Sweets - Activity Activity Orders: Up ad shana - Services Needed Following services are medically necessary services: Nursing, Physical Therapy - Transfer Medications Prescriptions: Ferrous Sulfate 325 mg PO BID #60 tablet Omeprazole [PriLOSEC] 40 mg PO QAM 30 Days #30 capsule.dr Home Medications: Aspirin Enteric Coated [Aspirin EC] 81 mg PO DAILY 10/04/15 [History] Atorvastatin [Lipitor] 20 mg PO DAILY 10/04/15 [History] Escitalopram [Lexapro] 20 mg PO DAILY 10/04/15 [History] Insulin Glargine [Lantus] 18 unit SQ HS 10/04/15 [History] Lisinopril [Zestril] 20 mg PO DAILY 10/04/15 [History] Metformin HCl [Glucophage] 500 mg PO BIDWM 10/04/15 [History] Metoprolol [Lopressor] 50 mg PO BID #60 tablet 11/10/15 [Rx] Calcium/Vit B12/FA/Pyridoxine [Folic Acid-Vit B6-Vit B12 Tab] 1 each PO DAILY 12/25/18 [History] Cyanocobalamin/Folic AC/Vit B6 [Folbic Tablet] 1 each PO DAILY 12/25/18 [History] Insulin LISPRO [Admelog] 0 unit SQ ACHS 12/25/18 [History] LevETIRAcetam [Keppra] 500 mg PO BID 12/25/18 [History] Magnesium Oxide [Mag-Ox] 400 mg PO BID 12/25/18 [History] Melatonin 5 mg PO HS 12/25/18 [History] OxyCODONE Immed Rel [Roxicodone 5 MG] 5 mg PO Q8HR PRN 12/25/18 [History] Rivastigmine Tartrate (oral) [Exelon] 1.5 mg PO BID 12/25/18 [History] Triamterene/Hydrochlorothiazid [Triamterene-Hctz 75-50 mg Tab] 1 tab PO DAILY 12/25/18 [History] Acetaminophen [Tylenol] 650 mg PO Q6HR PRN tablet 12/27/18 [Rx] Ferrous Sulfate 325 mg PO BID #60 tablet 12/27/18 [Rx] Omeprazole [PriLOSEC] 40 mg PO QAM 30 Days #30 capsule. 12/27/18 [Rx] Allergies/Adverse Reactions: Allergy/AdvReac Type Severity Reaction Status Date / Time Erythromycin Base Allergy Hives Verified 12/29/15 17:40 NSAIDS (Non-Steroidal Allergy See Verified 10/04/15 13:39 Anti-Inflamma Comments shellfish derived Allergy See Verified 10/04/15 13:39 Comments Sulfa (Sulfonamide Allergy See Verified 12/29/15 17:40 Antibiotics) Comments Certification: Further, I certify that my clinical findings support that this patient is homebound (i.e. absences from home require considerable and taxing effort and are for medical reasons or latter day services or infrequently or short duration when for other reasons) because: Homebound Reason: Patient requires assistance of a person or device to safely leave home Attestation: My signature below is to certify that this patient is under my care and that I, or nurse practitioner, or a physician's carpenter assistant working with me, has a [id number] encounter with this patient.
--- NOTE | 2018-12-28 16:31 | Electrocardiograph Report ---
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
== END 2018-12-27 15:23 | disposition home or self-care (01) | DRG 379 ==
LOC: EMEROOARM 16:06 → 2ANU 16:06 → SUATTDRO 22:14
PROVIDERS: ADMIT Pediatrics; ATTEND Internal Medicine
PROC: ENDOEBX (2018-12-25 14:30)

== ENCOUNTER 2019-05-21 12:33 | Inpatient (IN) ==
[2019-05-21] MEDS ORDERED: 0.9 % Sodium Chloride 1,000 ML ONE (13:04)
[2019-05-21] MEDS ORDERED: Isovue-370 500 ML BOTTLE IVP ONE (13:11)
[2019-05-21] MEDS ORDERED: 0.9 % Sodium Chloride 1,000 ML IVC ONE ×2 (13:11→15:09)
[2019-05-21 13:48] LABS: Basophils % 0.2 %; Hematocrit 35.4 % (35.3-44.9); Immature Granulocytes % 0.7 % (0-4); Lymphocytes # 1.2 K/mcL (0.6-4.6); Lymphocytes % 6.3 %; Mean Corpuscular HGB Conc 31.1 g/dL (31.6-35.5); Mean Corpuscular Hemoglobin 28.9 pg (28.0-33.3); Mean Corpuscular Volume 93.2 fL (83.0-100.0); Monocytes # 1.1 K/mcL (0.0-1.3); Monocytes % 5.9 %; Neutrophils # 16.2 K/mcL (1.6-8.9); Platelet Count 210 K/mcL (140-400); Red Cell Distribution Width 13.7 % (11.5-14.5); Segmented Neutrophils % 86.9 %; White Blood Count 18.6 K/mcL (4.3-11.1)
[2019-05-21 13:54] LABS: Calcium 8.8 mg/dL (8.6-10.3); Potassium 4.5 mEq/L (3.5-5.1)
[2019-05-21 14:18] LABS: Prothrombin Time 11.4 Seconds (9.4-12.1)
[2019-05-21 14:20] LABS: Activated Partial Thrombo Time 29.2 Seconds (26.0-36.0)
[2019-05-21 14:45] LABS: Bilirubin,Urine Negative (Negative); Blood,Urine Large (Negative); Clarity,Urine Turbid (Clear); Color,Urine Yellow (Yellow); Glucose,Urine (UA) 250 mg/dL (Normal); Ketones,Urine Negative (Negative); Leukocyte Esterase,Urine Large (Negative); Nitrite,Urine Negative (Negative); PH,Urine 5.5 pH Units (5.0-8.0); Protein,Urine 30 mg/dL (Neg-Trace); Specific Gravity,Urine > 1.030 (1.010-1.025); Urobilinogen,Urine Normal (Normal)
[2019-05-21 14:50] LABS: Bacteria,Urine None Seen per hpf (None-Few); Squamous Epithelial Cell,Urine Many per lpf (None-Few); WBC,Urine TNTC per hpf (0-3)
--- NOTE | 2019-05-21 15:10 | Emergency Department Note ---
Disposition Clinical Impression: Closed right hip fracture Qualifiers: Encounter type: initial encounter Qualified Code(s): S72.001A - Fracture of unspecified part of neck of right femur, initial encounter for closed fracture Acute renal failure Qualifiers: Acute renal failure type: unspecified Qualified Code(s): N17.9 - Acute kidney failure, unspecified UTI (urinary tract infection) Qualifiers: Urinary tract infection type: site unspecified Hematuria presence: without hematuria Qualified Code(s): N39.0 - Urinary tract infection, site not specified Hypotension Qualifiers: Hypotension type: unspecified hypotension type Qualified Code(s): I95.9 - Hypotension, unspecified Disposition: Admitted As Inpatient Condition: Fair Time of Disposition: 15:39 General Adult HPI - General Chief complaint: ED Extremity Injury, Lower Stated complaint: fall, R hip leg pain Time Seen by Provider: 05/21/19 12:50 Source: patient Mode of arrival: ambulatory Limitations: no limitations Nursing Notes Reviewed: Yes Vital Signs Reviewed: Yes - History of Present Illness HPI Narrative: 69-year-old female presents emergency Department with concerns of pain to the right hip and confusion. Patient fell yesterday, tripping over her walker and fell to the ground. It was unwitnessed fall but she was unable to get up off the ground after the fall. Patient denies fever, chills, nausea, vomiting, diarrhea. She appears mildly confused during my exam and family states that that she has been like this over the past few days. She was recently diagnosed with urinary tract infection and recently started antibiotics yesterday. She has taken one dose of cefdinir. Family reports that she often has mechanical falls at home. Pain Scale: 10 - Related Data Home Medications Medication Instructions Recorded Confirmed Aspirin Enteric Coated [Aspirin EC] 81 mg PO DAILY 10/04/15 05/21/19 Atorvastatin [Lipitor] 20 mg PO DAILY 10/04/15 05/21/19 Escitalopram [Lexapro] 20 mg PO DAILY 10/04/15 05/21/19 Insulin Glargine [Lantus] 18 unit SQ HS 10/04/15 05/21/19 Lisinopril [Zestril] 20 mg PO DAILY 10/04/15 05/21/19 Metformin HCl [Glucophage] 1,000 mg PO BIDWM 10/04/15 05/21/19 Calcium/Vit B12/FA/Pyridoxine 1 each PO DAILY 12/25/18 05/21/19 [Folic Acid-Vit B6-Vit B12 Tab] Cyanocobalamin/Folic AC/Vit B6 1 each PO DAILY 12/25/18 05/21/19 [Folbic Tablet] Insulin LISPRO [Admelog] 5 - 10 unit SQ ACHS 12/25/18 05/21/19 LevETIRAcetam [Keppra] 500 mg PO BID 12/25/18 05/21/19 Magnesium Oxide [Mag-Ox] 1 tab PO QAM 12/25/18 05/21/19 Melatonin 5 mg PO HS 12/25/18 05/21/19 Rivastigmine Tartrate (oral) 1.5 mg PO BID 12/25/18 05/21/19 [Exelon] Triamterene/Hydrochlorothiazid 1 tab PO DAILY 12/25/18 05/21/19 [Triamterene-Hctz 75-50 mg Tab] Omeprazole [PriLOSEC] 20 mg PO DAILY 03/21/19 05/21/19 Ferrous Sulfate 650 mg PO DAILY 05/21/19 05/21/19 Previous Rx's Medication Instructions Recorded Metoprolol [Lopressor] 50 mg PO BID #60 tablet 11/10/15 Allergies Allergy/AdvReac Type Severity Reaction Status Date / Time Erythromycin Base Allergy Hives Verified 12/29/15 17:40 NSAIDS (Non-Steroidal Allergy See Verified 10/04/15 13:39 Anti-Inflamma Comments shellfish derived Allergy See Verified 10/04/15 13:39 Comments Sulfa (Sulfonamide Allergy See Verified 12/29/15 17:40 Antibiotics) Comments All systems ED: reviewed and negative except as stated. Review of Systems: As Per HPI Past Medical History - Past Medical History Attestation: Yes The following information was validated with the patient. Source: patient Medical history: Reports: CVA, dementia, diabetes, hyperlipidemia, hypertension, TIA, other Surgical history: Reports: orthopedic, other Psychiatric history: Reports: no psych history DIRECTOR OF BUSINESS APPLICATIONS history: Reports: non-contributory - Social History Smoking Status: Former smoker Smokeless Tobacco Status: No Alcohol use: Reports: none Drug use: Reports: none Physical Exam General: Alert and in no acute distress Skin: Warm, dry, intact Head: Normocephalic and atraumatic Neck: Supple, trachea midline and no tenderness Cardiovascular: RRR, no murmur, normal perfusion Respiratory: CTAB, no wheezing, cough, or respiratory distress Musculoskeletal: Pain with log rolling motion of the right lower extremity. Pulses equal bilateral lower extremity. No pain to range of motion of the bilateral upper extremity. GI: Soft, nontender, nondistended. Bowel sounds present Neuro: oriented to person, place, and time but answers questions slowly. no focal deficits noted on exam but exam is restricted by pain to RLE. Psychiatric: cooperative and appropriate mood and affect. - General General appearance: alert Course Vital Signs Pulse Rate 82 05/21/19 12:34 Respiratory Rate 16 05/21/19 12:34 Blood Pressure 95/65 05/21/19 12:34 O2 Sat by Pulse Oximetry 93 05/21/19 12:34 Temperature 97.0 F L 05/21/19 20:00 Pulse Rate 75 05/21/19 21:00 Respiratory Rate 18 05/21/19 21:00 Blood Pressure 101/55 05/21/19 21:00 O2 Sat by Pulse Oximetry 95 05/21/19 21:00 Oxygen Delivery Oxygen Delivery Room Air Medical Decision Making - MDM Narrative Medical decision making narrative: Patient was given antibiotics in the emergency department for urinary tract infection. BP was initially hypotensive but improved with IV fluids. Family states the patient has not been eating or drinking well over the past few days which is likely contributing to the ARF and hypotension. Pt is afebrile in the ED. Has leukocytosis and is given Abx in the ED for UTI after return of UA. Pt is awake and alert in the ED. Not tachycardic. I spoke with the orthopedic physician, Dr. Mcmanus who will see the patient in the hospital for RLE fracture. She will require further evaluation of hypotension, ARF, and UTI. Patient and family comfortable with the plan for admission to hospitalist for further care and evaluation. - Medical Records Medical records reviewed: Yes I reviewed the patient's medical records. - Lab Data Lab results reviewed: Yes I reviewed the patient's lab results. Result diagrams: 05/21/19 13:20 05/21/19 19:44 Lab Results 05/21/19 05/21/19 05/21/19 Range/Units 13:20 13:20 13:20 WBC 18.6 H (4.3-11.1) K/mcL RBC 3.80 L (3.82-4.97) M/mcL Hgb 11.0 L (11.5-15.4) g/dL Hct 35.4 (35.3-44.9) % MCV 93.2 (83.0-100.0) fL MCH 28.9 (28.0-33.3) pg MCHC 31.1 L (31.6-35.5) g/dL RDW 13.7 (11.5-14.5) % Plt Count 210 (140-400) K/mcL MPV 11.0 (9.4-12.4) fL Immature Gran % 0.7 (0-4) % Seg Neutrophils % 86.9 % Lymphocytes % 6.3 % Monocytes % 5.9 % Eosinophils % 0.0 % Basophils % 0.2 % Neutrophils # 16.2 H (1.6-8.9) K/mcL Lymphocytes # 1.2 (0.6-4.6) K/mcL Monocytes # 1.1 (0.0-1.3) K/mcL Eosinophils # 0.0 (0.0-0.6) K/mcL Basophils # 0.0 (0.0-0.2) K/mcL PT 11.4 (9.4-12.1) Seconds INR 1.0 APTT 29.2 (26.0-36.0) Seconds Sodium 130 L (136-145) mEq/L Potassium 4.5 (3.5-5.1) mEq/L Chloride 94 L (98-107) mEq/L Carbon Dioxide 17 L (23-29) mEq/L BUN 30 H (8-23) mg/dL Creatinine 1.70 H (0.60-1.20) mg/dL Est GFR ( Amer) 36 L (> 60) Est GFR (Non-Af Amer) 30 L (> 60) BUN/Creatinine Ratio 18 (6-26) Glucose 317 H (70-105) mg/dL Calculated Osmolality 288 (280-300) Calcium 8.8 (8.6-10.3) mg/dL Creatine Kinase 176 (30-223) Units/L Beta-Hydroxybutyric Acd (0.02-0.27) mmol/L Urine Color (Yellow) Urine Clarity (Clear) Urine pH (5.0-8.0) pH Units Ur Specific [place] (1.010-1.025) Urine Protein (Neg-Trace) mg/dL Urine Glucose (UA) (Normal) mg/dL Urine Ketones (Negative) mg/dL Urine Blood (Negative) Urine Nitrite (Negative) Urine Bilirubin (Negative) Urine Urobilinogen (Normal) mg/dL Ur Leukocyte Esterase (Negative) Urine Microscopic RBC (0-3) per hpf Urine Microscopic WBC (0-3) per hpf Ur Squamous Epith Cells (None-Few) per lpf Urine Bacteria (None-Few) per hpf Ur Culture Indicated? (NO) Urine Test (Negative) Blood Type Antibody Screen 05/21/19 05/21/19 05/21/19 Range/Units 13:20 13:21 14:30 WBC (4.3-11.1) K/mcL RBC (3.82-4.97) M/mcL Hgb (11.5-15.4) g/dL Hct (35.3-44.9) % MCV (83.0-100.0) fL MCH (28.0-33.3) pg MCHC (31.6-35.5) g/dL RDW (11.5-14.5) % Plt Count (140-400) K/mcL MPV (9.4-12.4) fL Immature Gran % (0-4) % Seg Neutrophils % % Lymphocytes % % Monocytes % % Eosinophils % % Basophils % % Neutrophils # (1.6-8.9) K/mcL Lymphocytes # (0.6-4.6) K/mcL Monocytes # (0.0-1.3) K/mcL Eosinophils # (0.0-0.6) K/mcL Basophils # (0.0-0.2) K/mcL PT (9.4-12.1) Seconds INR APTT (26.0-36.0) Seconds Sodium (136-145) mEq/L Potassium (3.5-5.1) mEq/L Chloride (98-107) mEq/L Carbon Dioxide (23-29) mEq/L BUN (8-23) mg/dL Creatinine (0.60-1.20) mg/dL Est GFR ( Amer) (> 60) Est GFR (Non-Af Amer) (> 60) BUN/Creatinine Ratio (6-26) Glucose (70-105) mg/dL Calculated Osmolality (280-300) Calcium (8.6-10.3) mg/dL Creatine Kinase (30-223) Units/L Beta-Hydroxybutyric Acd 0.39 H (0.02-0.27) mmol/L Urine Color Yellow (Yellow) Urine Clarity Turbid A (Clear) Urine pH 5.5 (5.0-8.0) pH Units Ur Specific [place] > 1.030 H (1.010-1.025) Urine Protein 30 H (Neg-Trace) mg/dL Urine Glucose (UA) 250 H (Normal) mg/dL Urine Ketones Negative (Negative) mg/dL Urine Blood Large H (Negative) Urine Nitrite Negative (Negative) Urine Bilirubin Negative (Negative) Urine Urobilinogen Normal (Normal) mg/dL Ur Leukocyte Esterase Large H (Negative) Urine Microscopic RBC 15-30 H (0-3) per hpf Urine Microscopic WBC TNTC H (0-3) per hpf Ur Squamous Epith Cells Many H (None-Few) per lpf Urine Bacteria None Seen (None-Few) per hpf Ur Culture Indicated? YES A (NO) Urine Test (Negative) Blood Type A POSITIVE Antibody Screen NEGATIVE 05/21/19 Range/Units 14:30 WBC (4.3-11.1) K/mcL RBC (3.82-4.97) M/mcL Hgb (11.5-15.4) g/dL Hct (35.3-44.9) % MCV (83.0-100.0) fL MCH (28.0-33.3) pg MCHC (31.6-35.5) g/dL RDW (11.5-14.5) % Plt Count (140-400) K/mcL MPV (9.4-12.4) fL Immature Gran % (0-4) % Seg Neutrophils % % Lymphocytes % % Monocytes % % Eosinophils % % Basophils % % Neutrophils # (1.6-8.9) K/mcL Lymphocytes # (0.6-4.6) K/mcL Monocytes # (0.0-1.3) K/mcL Eosinophils # (0.0-0.6) K/mcL Basophils # (0.0-0.2) K/mcL PT (9.4-12.1) Seconds INR APTT (26.0-36.0) Seconds Sodium (136-145) mEq/L Potassium (3.5-5.1) mEq/L Chloride (98-107) mEq/L Carbon Dioxide (23-29) mEq/L BUN (8-23) mg/dL Creatinine (0.60-1.20) mg/dL Est GFR ( Amer) (> 60) Est GFR (Non-Af Amer) (> 60) BUN/Creatinine Ratio (6-26) Glucose (70-105) mg/dL Calculated Osmolality (280-300) Calcium (8.6-10.3) mg/dL Creatine Kinase (30-223) Units/L Beta-Hydroxybutyric Acd (0.02-0.27) mmol/L Urine Color (Yellow) Urine Clarity (Clear) Urine pH (5.0-8.0) pH Units Ur Specific [place] (1.010-1.025) Urine Protein (Neg-Trace) mg/dL Urine Glucose (UA) (Normal) mg/dL Urine Ketones (Negative) mg/dL Urine Blood (Negative) Urine Nitrite (Negative) Urine Bilirubin (Negative) Urine Urobilinogen (Normal) mg/dL Ur Leukocyte Esterase (Negative) Urine Microscopic RBC (0-3) per hpf Urine Microscopic WBC (0-3) per hpf Ur Squamous Epith Cells (None-Few) per lpf Urine Bacteria (None-Few) per hpf Ur Culture Indicated? (NO) Urine Test Negative (Negative) Blood Type Antibody Screen - Radiology Data Radiology results reviewed: Yes I reviewed the patient's radiology results. - EKG Data EKG #1 EKG attestation: Yes I reviewed and interpreted this EKG.
[2019-05-21 15:18] LABS: RBC,Urine 15-30 per hpf (0-3)
[2019-05-21] MEDS ORDERED: cefTRIAXone 1,000 MG in Water for inj. (sterile) 10 ML IVP ONE (15:25)
--- NOTE | 2019-05-21 16:41 | Orthopedic Consult Note ---
Date of Encounter: 05/21/19 Time of Encounter: 16:30 Assessment and Plan (1) Right femoral fracture Current Visit: Yes Status: Acute Qualifiers: Encounter type: initial encounter Femur location: unspecified portion of femur Fracture type: closed Fracture morphology: unspecified fracture morphology Qualified Code(s): S72.91XA - Unspecified fracture of right femur, initial encounter for closed fracture (2) Vertebral compression fracture Current Visit: Yes Status: Acute Qualifiers: Encounter type: initial encounter Fracture of vertebra location: thoracic Thoracic vertebra fracture level: unspecified thoracic vertebra Qualified Code(s): S22.000A - Wedge compression fracture of unspecified thoracic vertebra, initial encounter for closed fracture (3) Fall Current Visit: Yes Status: Acute Qualifiers: Encounter type: initial encounter Qualified Code(s): W19.XXXA - Unspecified fall, initial encounter History of Present Illness Chief complaint: right hip fracture HPI: Ms. Ellsworth is a 69 year old female presenting to [facility] after a fall per patient off the commode. States she was getting up and lost her balance leading to a fall directly onto right hip per patient. She expresses pain to the right hip. She is oriented to person and place only. History re: recent UTI taken from patient and Dr. Moore, ED physician. No family at bedside. On exam patient lying on ED cot. No acute distress. Again, A&O to person, place. Right leg externally rotated. Tender to palpation along right hip. Mild tenderness to palpation knee and calf. Neurovascularly intact. Ankle motion intact. Sentation per patient intact. Left lower extremity unremarkable. CT images and report reviewed revealing: acute, traumatic, impacted transcervical right femoral fracture age-indeterminate T5 compression fracture. chronic T12-L5 compression fractures NPO midnight Plan for right hip marsha 05/22 Dr. Ibarra Consent not able to be obtained as patient is not fully oriented and no family at bedside. Will reevaluate again in the morning. Thank you for this consultation. Past Med Surg Social Fam HX - Past Medical History Medical history: CVA, dementia, diabetes, hyperlipidemia, hypertension, TIA, other Additional medical history: Anemia Psychiatric history: no psych history - Past Surgical History Surgical History: orthopedic, other Additional surgical history: RIGHT FOOT SX, NECK SX. - Social History Smoking Status: Former smoker Smokeless Tobacco Status: No Alcohol use: none Drug use: none - Family History Mother Adopted: No Family Member Ethnicity: Non- Living Status: Hx Family Cardiac Disorders: Yes Hx Family Endocrine Disorder: Yes Medications and Allergies Aspirin Enteric Coated [Aspirin EC] 81 mg PO DAILY 10/04/15 [History] Atorvastatin [Lipitor] 20 mg PO DAILY 10/04/15 [History] Escitalopram [Lexapro] 20 mg PO DAILY 10/04/15 [History] Insulin Glargine [Lantus] 18 unit SQ HS 10/04/15 [History] Lisinopril [Zestril] 20 mg PO DAILY 10/04/15 [History] Metformin HCl [Glucophage] 1,000 mg PO BIDWM 10/04/15 [History] Metoprolol [Lopressor] 50 mg PO BID #60 tablet 11/10/15 [Rx] Calcium/Vit B12/FA/Pyridoxine [Folic Acid-Vit B6-Vit B12 Tab] 1 each PO DAILY 12/25/18 [History] Cyanocobalamin/Folic AC/Vit B6 [Folbic Tablet] 1 each PO DAILY 12/25/18 [History] Insulin LISPRO [Admelog] 5 - 10 unit SQ ACHS 12/25/18 [History] LevETIRAcetam [Keppra] 500 mg PO BID 12/25/18 [History] Magnesium Oxide [Mag-Ox] 1 tab PO QAM 12/25/18 [History] Melatonin 5 mg PO HS 12/25/18 [History] Rivastigmine Tartrate (oral) [Exelon] 1.5 mg PO BID 12/25/18 [History] Triamterene/Hydrochlorothiazid [Triamterene-Hctz 75-50 mg Tab] 1 tab PO DAILY 12/25/18 [History] Omeprazole [PriLOSEC] 20 mg PO DAILY 03/21/19 [History] Ferrous Sulfate 650 mg PO DAILY 05/21/19 [History] Allergy/AdvReac Type Severity Reaction Status Date / Time Erythromycin Base Allergy Hives Verified 12/29/15 17:40 NSAIDS (Non-Steroidal Allergy See Verified 10/04/15 13:39 Anti-Inflamma Comments shellfish derived Allergy See Verified 10/04/15 13:39 Comments Sulfa (Sulfonamide Allergy See Verified 12/29/15 17:40 Antibiotics) Comments All Systems Reviewed: The remainder of the systems were reviewed and are negative Physical Exam - Constitutional Vitals: Temp Pulse Resp BP Pulse Ox 97.6 F 76 17 99/53 95 05/21/19 12:46 05/21/19 15:18 05/21/19 14:17 05/21/19 15:18 05/21/19 15:18 Results - Labs Result Diagrams: 05/22/19 03:40 05/22/19 03:40 Labs: Abnormal lab results WBC 18.6 K/mcL (4.3-11.1) H 05/21/19 13:20 RBC 3.80 M/mcL (3.82-4.97) L 05/21/19 13:20 Hgb 11.0 g/dL (11.5-15.4) L 05/21/19 13:20 MCHC 31.1 g/dL (31.6-35.5) L 05/21/19 13:20 Neutrophils # 16.2 K/mcL (1.6-8.9) H 05/21/19 13:20 Sodium 130 mEq/L (136-145) L 05/21/19 13:20 Chloride 94 mEq/L (98-107) L 05/21/19 13:20 Carbon Dioxide 17 mEq/L (23-29) L 05/21/19 13:20 BUN 30 mg/dL (8-23) H 05/21/19 13:20 Creatinine 1.70 mg/dL (0.60-1.20) H 05/21/19 13:20 Est GFR ( Amer) 36 (> 60) L 05/21/19 13:20 Est GFR (Non-Af Amer) 30 (> 60) L 05/21/19 13:20 Glucose 317 mg/dL (70-105) H 05/21/19 13:20 Urine Clarity Turbid (Clear) A 05/21/19 14:30 Ur Specific [place] > 1.030 (1.010-1.025) H 05/21/19 14:30 Urine Protein 30 mg/dL (Neg-Trace) H 05/21/19 14:30 Urine Glucose (UA) 250 mg/dL (Normal) H 05/21/19 14:30 Urine Blood Large (Negative) H 05/21/19 14:30 Ur Leukocyte Esterase Large (Negative) H 05/21/19 14:30 Urine Microscopic RBC 15-30 per hpf (0-3) H 05/21/19 14:30 Urine Microscopic WBC TNTC per hpf (0-3) H 05/21/19 14:30 Ur Squamous Epith Cells Many per lpf (None-Few) H 05/21/19 14:30 Ur Culture Indicated? YES (NO) A 05/21/19 14:30 H & H 05/21/19 Range/Units 13:20 Hgb 11.0 L (11.5-15.4) g/dL Hct 35.4 (35.3-44.9) % All other labs normal. Consult Discharge Plan - Plan Referrals: Trav Vivar DO [Primary Care Provider] -
--- NOTE | 2019-05-21 16:45 | Internal Med History&Physical ---
<Meera Hurst - Last Filed: 05/21/19 17:58> Date of Encounter: 05/21/19 Time of Encounter: 17:58 Internal Medicine - H&P: HPI Chief complaint: Right hip pain, confusion, weakness Admitted From: Emergency Dept History of present illness: Ms. Ellsworth is a 69 year old female with history of CVA, dementia, diabetes, hyperlipidemia, hypertension, seizures, GERD who presented to the ED with complaint of right hip pain, confusion, and recent diagnosis of UTI. CT head/chest/abdomen/pelvis showed an acute impacted transcervical right femoral fracture, multiple vertebral fractures, and gallbladder edema and wall thickening. Patient is being admitted for acute femoral fracture, UTI and TONY. Patient and family report a mechanical fall yesterday when trying to get up from the toilet. Patient denies loss of consciousness or hitting her head. Patient's reports that she was unable to get off the ground and required assistance. He states that patient started using her walker again in the last couple days due to feeling weak and that she had not used her walker in several months. She was diagnosed last week with a UTI and started on antibiotics yesterday. She states that she has had minimal discomfort with urination. Family reports that patient has been confused for the past couple days and is not at baseline. Family also states that she has been very weak and tired. Denies recent seizure and states that she has been taking her seizure medication. Denies known history of osteoporosis or vertebral fractures. Patient denies any pain except with movement involving right hip. Denies fever, syncope, chest pain, abdominal pain, N/V/D. Past Med Surg Social Fam HX - Past Medical History Medical history: CVA, dementia, diabetes, hyperlipidemia, hypertension, TIA, other Additional medical history: Anemia Psychiatric history: no psych history - Past Surgical History Surgical History: orthopedic, other Additional surgical history: RIGHT FOOT SX, NECK SX. - Social History Smoking Status: Former smoker Smokeless Tobacco Status: No Alcohol use: none Drug use: none - Family History Mother Adopted: No Family Member Ethnicity: Non- Living Status: Hx Family Cardiac Disorders: Yes Hx Family Endocrine Disorder: Yes Internal Medicine - H&P: Meds Aspirin Enteric Coated [Aspirin EC] 81 mg PO DAILY 10/04/15 [History] Atorvastatin [Lipitor] 20 mg PO DAILY 10/04/15 [History] Escitalopram [Lexapro] 20 mg PO DAILY 10/04/15 [History] Insulin Glargine [Lantus] 18 unit SQ HS 10/04/15 [History] Lisinopril [Zestril] 20 mg PO DAILY 10/04/15 [History] Metformin HCl [Glucophage] 1,000 mg PO BIDWM 10/04/15 [History] Metoprolol [Lopressor] 50 mg PO BID #60 tablet 11/10/15 [Rx] Calcium/Vit B12/FA/Pyridoxine [Folic Acid-Vit B6-Vit B12 Tab] 1 each PO DAILY 12/25/18 [History] Cyanocobalamin/Folic AC/Vit B6 [Folbic Tablet] 1 each PO DAILY 12/25/18 [History] Insulin LISPRO [Admelog] 5 - 10 unit SQ ACHS 12/25/18 [History] LevETIRAcetam [Keppra] 500 mg PO BID 12/25/18 [History] Magnesium Oxide [Mag-Ox] 1 tab PO QAM 12/25/18 [History] Melatonin 5 mg PO HS 12/25/18 [History] Rivastigmine Tartrate (oral) [Exelon] 1.5 mg PO BID 12/25/18 [History] Triamterene/Hydrochlorothiazid [Triamterene-Hctz 75-50 mg Tab] 1 tab PO DAILY 12/25/18 [History] Omeprazole [PriLOSEC] 20 mg PO DAILY 03/21/19 [History] Ferrous Sulfate 650 mg PO DAILY 05/21/19 [History] Allergy/AdvReac Type Severity Reaction Status Date / Time Erythromycin Base Allergy Hives Verified 12/29/15 17:40 NSAIDS (Non-Steroidal Allergy See Verified 10/04/15 13:39 Anti-Inflamma Comments shellfish derived Allergy See Verified 10/04/15 13:39 Comments Sulfa (Sulfonamide Allergy See Verified 12/29/15 17:40 Antibiotics) Comments All Systems PM: A 10-system review of systems was performed and is negative for pertinent findings except as documented above in the HPI. - Constitutional Constitutional: weakness, no chills, no fever(s) - Cardiovascular Cardiovascular ROS IM: no chest pain, no palpitations, no syncope - Respiratory Respiratory: no dyspnea - Gastrointestinal Gastrointestinal: no abdominal pain, no change in bowel habits, no constipation, no diarrhea - Genitourinary Genitourinary: dysuria, urinary incontinence (acute), no hematuria - Musculoskeletal Musculoskeletal ROS IM: no back pain, no joint swelling - Integumentary Integumentary IM: no new lesions, no sores - Neurological Neurological ROS: abnormal speech, confusion, frequent falls, weakness - Constitutional Vitals: Temp Pulse Resp BP Pulse Ox 97.6 F 76 17 99/53 95 05/21/19 12:46 05/21/19 15:18 05/21/19 14:17 05/21/19 15:18 05/21/19 15:18 Exam: Gen: Vitals noted. No acute distress. Somnolent and lying comfortably in bed. Eyes: anicteric sclerae, moist conjunctivae HENT: Atraumatic, normocephalic; oral mucosa dry Neck: Trachea midline; supple Cardiac: RRR, no murmur, normal S1/S2 Pulmonary: CTA bilaterally, no wheezes, rales or rhonchi, equal chest expansion Abdomen: soft, nontender, no guarding or rigidity. Bowel sounds normal. Extremities: Mild pain on palpation of the right lateral thigh. Difficulty with leg flexion/extension dt right hip pain. No BLE edema, nontender calf, no cyanosis or clubbing Skin: Warm, dry, intact; no rashes or ulcers Neuro: CN 2-12 intact. Weak sternman strength but equal bilaterally. Equal strength in UE, no drift. Right leg weaker than the left dt hip pain. No focal deficits noted. Psych: Appropriate mood and behavior. A&Ox3 to person, place, year. Internal Med - H&P Results - Labs CBC & Chem 7: 05/21/19 13:20 05/21/19 13:20 Labs: Short CBC 05/21/19 Range/Units 13:20 WBC 18.6 H (4.3-11.1) K/mcL Hgb 11.0 L (11.5-15.4) g/dL Hct 35.4 (35.3-44.9) % Plt Count 210 (140-400) K/mcL Neutrophils # 16.2 H (1.6-8.9) K/mcL BMP 05/21/19 13:20 Sodium 130 L Potassium 4.5 Chloride 94 L Carbon Dioxide 17 L BUN 30 H Creatinine 1.70 H Glucose 317 H Calcium 8.8 Urine 05/21/19 Range/Units 14:30 Urine Color Yellow (Yellow) Urine Clarity Turbid A (Clear) Urine pH 5.5 (5.0-8.0) pH Units Ur Specific [place] > 1.030 H (1.010-1.025) Urine Protein 30 H (Neg-Trace) mg/dL Urine Glucose (UA) 250 H (Normal) mg/dL - Impressions ITS Impressions Cervical Spine CT 05/21/19 13:11 IMPRESSION: No acute abnormality of the cervical spine. Status post C6-T1 ACDF with partial C6 and C7 corpectomies and spacer placement. D/ / Anders London / Anders London Interpreting Provider: Anders London Chest/Abdomen/Pelvis CTA 05/21/19 13:11 IMPRESSION: Mild periportal edema and diffuse gallbladder wall thickening. Findings are nonspecific and may be related to passive hepatic congestion, overhydration, or chronic liver disease. No evidence of hepatic trauma. No active extravasation of contrast. No acute traumatic abnormality of the chest or pelvis. Age-indeterminate T5 compression fracture with anterior wedging and mild loss of vertebral body height. No retropulsion of fracture fragments. Chronic T12 through L5 compression fractures. D/ / 05/21/2019 14:47:50 Marysol Mario MD / [email or web address] homeraad Interpreting Provider: Marysol Mario MD Head CT 05/21/19 13:11 IMPRESSION: No acute intracranial abnormality. Stable old left hemispheric ischemic changes. D/ / 05/21/2019 14:16:21 Brina Yen MD / bcarter Interpreting Provider: Brina Yen MD - Assessment and Plan (1) Severe sepsis Current Visit: Yes Status: Acute Assessment and plan: Severe sepsis due to leukocytosis, hypotension despite fluid resuscitation, known UTI s/p 2L NS in the ED Received Rocephin 1 WBC 18.6 Lactic acid pending Blood cultures ordered Continue Rocephin Continue maintenance fluids (2) Metabolic acidosis Current Visit: Yes Status: Acute Assessment and plan: Unclear etiology, possible DKA versus renal injury versus septic shock glucose 317, anion gap 19, beta hydroxybutyrate 0.39 Lactic acid pending Started insulin drip NPO (3) UTI (urinary tract infection) Current Visit: Yes Status: Acute Assessment and plan: Recently diagnosed with UTI 1 week ago, started antibiotics yesterday UA positive, urine culture pending Continue Rocephin Qualifiers: Urinary tract infection type: site unspecified Hematuria presence: without hematuria Qualified Code(s): N39.0 - Urinary tract infection, site not specified (4) TONY (acute kidney injury) Current Visit: Yes Status: Acute Assessment and plan: Possibly secondary to dehydration BUN 30, creatinine 1.70, GFR 30 s/p 2L NS Continue maintenance fluids (5) Closed right hip fracture Current Visit: Yes Status: Acute Assessment and plan: Secondary to mechanical fall yesterday, suspected osteoporosis given multiple vertebral fractures on CT Ortho consulted, and plan for surgery tomorrow Continue supportive care and pain management NPO Qualifiers: Encounter type: initial encounter Qualified Code(s): S72.001A - Fracture of unspecified part of neck of right femur, initial encounter for closed fracture (6) Vertebral compression fracture Current Visit: Yes Status: Acute Assessment and plan: Multiple thoracic and lumbar vertebral compression fractures noted on CT, unknown to patient and family Suspected osteoporosis given findings an acute femoral fracture Ortho consulted Continue supportive care and pain management Qualifiers: Encounter type: initial encounter Fracture of vertebra location: thoracic Qualified Code(s): S22.000A - Wedge compression fracture of unspecified thoracic vertebra, initial encounter for closed fracture (7) Dehydration Current Visit: Yes Status: Acute Assessment and plan: Appears dry on exam Labs also indicate dehydration Continue maintenance fluids (8) T2DM (type 2 diabetes mellitus) Current Visit: Yes Status: Acute Assessment and plan: On metformin and 18 units Lantus QHS at home Glucose 317 on admission Possible DKA, see above Started insulin drip per DKA protocol NPO Qualifiers: Diabetes mellitus long-term insulin use: with long-term use Diabetes mellitus complication status: with ketoacidosis Diabetes mellitus complication detail: without coma Qualified Code(s): E11.10 - Type 2 diabetes mellitus with ketoacidosis without coma; 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 (9) Frequent falls Current Visit: Yes Status: Chronic Assessment and plan: Fall precautions Not on anticoagulation at home (10) Hypertension Current Visit: Yes Status: Chronic Assessment and plan: Holding home meds to to hypotension Qualifiers: Hypertension type: essential hypertension Qualified Code(s): I10 - Essential (primary) hypertension (11) CVA (cerebral vascular accident) Current Visit: Yes Status: Chronic Assessment and plan: History of multiple strokes, no residual deficits Continue ASA and statin Qualifiers: CVA mechanism: unspecified Qualified Code(s): I63.9 - Cerebral infarction, unspecified (12) Seizure disorder Current Visit: Yes Status: Chronic Assessment and plan: Denies recent seizure, taking medication as directed Continue home Keppra - Time Spent With Patient Total time spent is greater than 50% in coordination of care (as documented) at patient's floor/unit and/or counseling patient: <Abebe Cordova - Last Filed: 05/22/19 05:14> Date of Encounter: 05/22/19 Internal Medicine - H&P: HPI History of present illness: Ms. Ellsworth is a 69 year old female Past Med Surg Social Fam HX - Additional Family History Additional family history: Family history was reviewed and non contributory All Systems PM: A 10-system review of systems was performed and is negative for pertinent findings except as documented above in the HPI. - Constitutional Vitals: Temp Pulse Resp BP Pulse Ox 96.7 F L 69 13 84/67 100 05/22/19 04:15 05/22/19 05:00 05/22/19 05:00 05/22/19 05:00 05/22/19 05:00 Internal Med - H&P Results - Labs CBC & Chem 7: 05/22/19 03:40 05/22/19 03:40 Labs: Short CBC 05/21/19 05/22/19 Range/Units 13:20 03:40 WBC 18.6 H 20.9 H (4.3-11.1) K/mcL Hgb 11.0 L 11.1 L (11.5-15.4) g/dL Hct 35.4 36.8 (35.3-44.9) % Plt Count 210 206 (140-400) K/mcL Neutrophils # 16.2 H 17.5 H (1.6-8.9) K/mcL BMP 05/21/19 05/21/19 05/21/19 13:20 19:44 22:48 Sodium 130 L 128 L 131 L Potassium 4.5 4.7 4.8 Chloride 94 L 99 100 Carbon Dioxide 17 L 16 L 16 L BUN 30 H 30 H 31 H Creatinine 1.70 H 1.62 H 1.83 H Glucose 317 H 248 H 251 H Calcium 8.8 7.8 L 7.6 L 05/22/19 03:40 Sodium 132 L Potassium 4.9 Chloride 101 Carbon Dioxide 17 L BUN 32 H Creatinine 2.03 H Glucose 167 H Calcium 7.7 L Liver Function 05/22/19 Range/Units 02:00 Total Bilirubin 0.2 L (0.3-1.0) mg/dL Direct Bilirubin 0.1 (0.0-0.2) mg/dL AST 27 (13-39) Units/L ALT 20 (7-52) Units/L Alkaline Phosphatase 37 (34-104) Units/L Albumin 3.3 L (3.5-5.7) g/dL Urine 05/21/19 Range/Units 14:30 Urine Color Yellow (Yellow) Urine Clarity Turbid A (Clear) Urine pH 5.5 (5.0-8.0) pH Units Ur Specific [place] > 1.030 H (1.010-1.025) Urine Protein 30 H (Neg-Trace) mg/dL Urine Glucose (UA) 250 H (Normal) mg/dL - Impressions ITS Impressions Cervical Spine CT 05/21/19 13:11 IMPRESSION: No acute abnormality of the cervical spine. Status post C6-T1 ACDF with partial C6 and C7 corpectomies and spacer placement. D/ / Anders London / Anders London Interpreting Provider: Anders London Chest/Abdomen/Pelvis CTA 05/21/19 13:11 IMPRESSION: Mild periportal edema and diffuse gallbladder wall thickening. Findings are nonspecific and may be related to passive hepatic congestion, overhydration, or chronic liver disease. No evidence of hepatic trauma. No active extravasation of contrast. No acute traumatic abnormality of the chest or pelvis. Age-indeterminate T5 compression fracture with anterior wedging and mild loss of vertebral body height. No retropulsion of fracture fragments. Chronic T12 through L5 compression fractures. D/ / 05/21/2019 14:47:50 Marysol Mario MD / [email or web address] Interpreting Provider: Marysol Mario MD Head CT 05/21/19 13:11 IMPRESSION: No acute intracranial abnormality. Stable old left hemispheric ischemic changes. D/ / 05/21/2019 14:16:21 Brina Yen MD / [email or web address] Interpreting Provider: Brina Yen MD - Time Spent With Patient Total time spent is greater than 50% in coordination of care (as documented) at patient's floor/unit and/or counseling patient: - Attending Attestation I have seen and independently assessed this patient and I agree with plan as documented by resident except as otherwise noted Exam Gen. NAD. Lethargic CVS. S1 s2 Resp. CTAB GI. Soft, NT, ND, +BS CLINICAL LIAISON. GCS 15/15 Plan Septic Shock likely secondary to UTI. Pt had anion gap metabolic acidosis with persistently low BP. Lactic acid came back at 7.4. BP in the 80s after 3L. Continue IV fluid resusictation, start on vanc and zosyn. Will start on pressors with levophed. Repeat blood cultures in am. ICU consult in case she further deteriorates Query. DKA. metabolic acidosis likely secondary to septic shock, however she had hyperglycemia and elevated beta hydroxybutyrate. Will repeat BMP, and initiate insulin drip if indicated. Signed out to night team Hip fracture. Orthopedic surgery Acute kidney injury. IV fluid resucitation
[2019-05-21] MEDS ORDERED: Acetaminophen 325 MG TABLET PO PRN (17:52)
[2019-05-21] MEDS ORDERED: Naloxone 0.4 MG/ML INJ IVP PRN (17:52)
[2019-05-21] MEDS ORDERED: D5% in Water 1,000 ML IVC PRN (17:59)
[2019-05-21] MEDS ORDERED: Dextrose Gel 15 GM/37.5 ML TUBE PO PRN ×3 (17:59→20:57)
[2019-05-21] MEDS ORDERED: *HR* Dextrose 50 % in Water (Syg) 50 ML SYRINGE IVP PRN ×3 (17:59→19:14)
[2019-05-21] MEDS ORDERED: Insulin LISPRO 300 UNITS/3 ML VIAL SQ SCH (18:00)
[2019-05-21] MEDS ORDERED: 0.9 % Sodium Chloride 1,000 ML IVC SCH (18:00)
[2019-05-21] MEDS ORDERED: Insulin Human Regular 100 UNIT in 0.9 % Sodium Chloride 100 ML IVC SCH (19:00)
[2019-05-21] MEDS ORDERED: D5% in 0.45% NACL w KCl 20 MEQ/1,000 ML MLS IVC PRN (19:14)
[2019-05-21] MEDS ORDERED: D5% in 0.45% NACL 1,000 ML IVC PRN (19:14)
[2019-05-21] MEDS ORDERED: Insulin Regular, Human 100 UNIT/ML IV PRN (19:14)
--- NOTE | 2019-05-21 19:44 | Event Note ---
Date of Encounter: 05/21/19 Time of Encounter: 19:00 I have seen and independently assessed this patient and I agree with plan as documented by resident except as otherwise noted Exam Gen. NAD. Lethargic CVS. S1 s2 Resp. CTAB GI. 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 GCS 15/15 Plan Septic Shock likely secondary to UTI. Pt had anion gap metabolic acidosis with persistently low BP. Lactic acid came back at 7.4. BP in the 80s after 3L. Continue IV fluid resusictation, start on vanc and zosyn. Will start on pressors with levophed. Repeat blood cultures in am. ICU consult in case she further deteriorates Query. DKA. metabolic acidosis likely secondary to septic shock, however she had hyperglycemia and elevated beta hydroxybutyrate. Will repeat BMP, and initiate insulin drip if indicated Hip fracture. Orthopedic surgery Acute kidney injury. IV fluid resucitation
[2019-05-21] MEDS ORDERED: *HR* Heparin 5,000 UNIT/ML VIAL SQ ONE (20:00)
[2019-05-21 20:18] LABS: Calcium 7.8 mg/dL (8.6-10.3); Potassium 4.7 mEq/L (3.5-5.1)
--- NOTE | 2019-05-21 20:25 | Event Note ---
Date of Encounter: 05/21/19 Time of Encounter: 20:22 Patient signed out to me by Dr. Cordova. I contacted Bed Management and requested transfer to ICU. I assessed patient, met with family, and proceeded to place left femoral CVC with Dr. Bartlett (detailed separately). Patient on her fourth liter bolus now and will likely need pressors to maintain hemodynamic stability. Discussed with patient, nursing staff, and family. Will monitor closely in ICU and trend lactate levels.
--- NOTE | 2019-05-21 20:41 | Procedure Note ---
<Angela Bartlett - Last Filed: 05/21/19 20:37> Date of procedure: 05/21/19 Procedure: Central Venous Catheter (CVC, Central Line) Placement Date: 05/21/19 Time: 2029 Indication: Intravenous access for possible vasopressor support Resident: Angela Bartlett DO Attending: Buck Dasilva MD A time-out was completed verifying correct patient, procedure, site, positioning, and special equipment if applicable. The patient was placed in a dependent position appropriate for central line placement based on the vein to be cannulated. The patients left groin was prepped and draped in sterile fashion. 1% Lidocaine was used to anesthetize the surrounding skin area. A triple lumen 9-[place] Cordis catheter was introduced into the the left common femoral using the Seldinger technique and under ultrasound guidance. Guidewire placement was confirmed within the venous lumen. The catheter was threaded smoothly over the guide wire and appropriate blood return was obtained. Each lumen of the catheter was evacuated of air and flushed with sterile saline. The catheter was then sutured in place to the skin and a sterile dressing applied with antibiotic patch. Perfusion to the extremity distal to the point of catheter insertion was checked and found to be adequate. Attending was present for the entire procedure. Estimated Blood Loss: 2cc The patient tolerated the procedure well and there were no complications. Was there an occupational therapy assistant present: Yes Half Backer: Buck Dasilva Estimated blood loss (cc): 2 Specimen: none <Buck Dasilva - Last Filed: 05/21/19 21:06> Procedure: I was present and supervised the entire procedure. Patient tolerated well.
[2019-05-21] MEDS ORDERED: Insulin DETEMIR 100 UNIT/ML X5UNITS SQ SCH (21:00)
[2019-05-21] MEDS: Melatonin 3 MG TABLET PO SCH (21:04)
[2019-05-21] MEDS: levETIRAcetam 250 MG TABLET PO SCH (21:04)
[2019-05-21] MEDS: 0.9 % Sodium Chloride 1,000 ML IVC SCH (21:05)
[2019-05-21] MEDS: Norepinephrine 4 MG in D5% in Water 250 ML IVC SCH (21:06)
[2019-05-21] MEDS: Piperacillin/Tazobactam 3.375 GM in 0.9 % Sodium Chloride Mini Bag 100 ML IVPB SCH (21:20)
--- NOTE | 2019-05-21 21:36 | Anesthesia Evaluation PreOp ---
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, TIA, Other (multiple vertebral fractures) Other Medical History: Renal (TONY, UTI), Diabetes Type II, Other (severe sepsis) Anesthesia History: No Prior Anesthetic Complications, Past Anesthesia (foot sx) Alcohol Use: none Drug use: none Medications and Allergies Aspirin Enteric Coated [Aspirin EC] 81 mg PO DAILY 10/04/15 [History] Atorvastatin [Lipitor] 20 mg PO DAILY 10/04/15 [History] Escitalopram [Lexapro] 20 mg PO DAILY 10/04/15 [History] Insulin Glargine [Lantus] 18 unit SQ HS 10/04/15 [History] Lisinopril [Zestril] 20 mg PO DAILY 10/04/15 [History] Metformin HCl [Glucophage] 1,000 mg PO BIDWM 10/04/15 [History] Metoprolol [Lopressor] 50 mg PO BID #60 tablet 11/10/15 [Rx] Calcium/Vit B12/FA/Pyridoxine [Folic Acid-Vit B6-Vit B12 Tab] 1 each PO DAILY 12/25/18 [History] Cyanocobalamin/Folic AC/Vit B6 [Folbic Tablet] 1 each PO DAILY 12/25/18 [History] Insulin LISPRO [Admelog] 5 - 10 unit SQ ACHS 12/25/18 [History] LevETIRAcetam [Keppra] 500 mg PO BID 12/25/18 [History] Magnesium Oxide [Mag-Ox] 1 tab PO QAM 12/25/18 [History] Melatonin 5 mg PO HS 12/25/18 [History] Rivastigmine Tartrate (oral) [Exelon] 1.5 mg PO BID 12/25/18 [History] Triamterene/Hydrochlorothiazid [Triamterene-Hctz 75-50 mg Tab] 1 tab PO DAILY 12/25/18 [History] Omeprazole [PriLOSEC] 20 mg PO DAILY 03/21/19 [History] Ferrous Sulfate 650 mg PO DAILY 05/21/19 [History] Allergy/AdvReac Type Severity Reaction Status Date / Time Erythromycin Base Allergy Hives Verified 12/29/15 17:40 NSAIDS (Non-Steroidal Allergy See Verified 10/04/15 13:39 Anti-Inflamma Comments shellfish derived Allergy See Verified 10/04/15 13:39 Comments Sulfa (Sulfonamide Allergy See Verified 12/29/15 17:40 Antibiotics) Comments - Meds/Allergy Pre-op Review Medications Reviewed: Yes Allergies Reviewed: Yes Beta Blockers on Current Med List: No Anesthesia Results - Labs 05/21/19 13:20 05/21/19 19:44 - Imaging EKG: report reviewed (Interpretive Statements SINUS RHYTHM Electronically Signed On 03-22-2019 17:20:44 EDT by Kymberly Israel) Anesthesia Exam Vital Signs/O2 Sat/Glucose, Most Current Temp Pulse Resp BP Pulse Ox 05/21/19 21:00 75 18 101/55 95 05/21/19 20:00 97.0 F L 75 19 108/67 96 05/21/19 18:33 97.2 F L 71 15 89/67 91 05/21/19 17:50 97 F L 70 14 96/64 94 Weight: 58kg Anesthesia Assess/Plan ASA Score: 4
[2019-05-21 23:36] LABS: Calcium 7.6 mg/dL (8.6-10.3); Potassium 4.8 mEq/L (3.5-5.1)
[2019-05-21] MEDS: Insulin LISPRO 300 UNITS/3 ML VIAL SQ SCH (23:41)
[2019-05-22] MEDS: *HR* OxyCODONE Immed Rel 5 MG TABLET PO PRN (00:17)
[2019-05-22 02:29] LABS: Albumin 3.3 g/dL (3.5-5.7); Albumin/Globulin Ratio 1.3 (1.1-2.2); Bilirubin,Direct 0.1 mg/dL (0.0-0.2); Bilirubin,Indirect 0.1 mg/dL (0.0-1.2); Bilirubin,Total 0.2 mg/dL (0.3-1.0); Globulin 2.5 g/dL (2.4-3.5); Total Protein 5.8 g/dL (6.4-8.9)
[2019-05-22 03:54] LABS: Basophils % 0.1 %; Hematocrit 36.8 % (35.3-44.9); Hemoglobin 11.1 g/dL (11.5-15.4); Immature Granulocytes % 0.9 % (0-4); Immature Platelets 5.5 % (1.1-6.1); Lymphocytes # 1.5 K/mcL (0.6-4.6); Mean Corpuscular HGB Conc 30.2 g/dL (31.6-35.5); Mean Corpuscular Hemoglobin 29.8 pg (28.0-33.3); Mean Corpuscular Volume 98.7 fL (83.0-100.0); Mean Platelet Volume 10.5 fL (9.4-12.4); Monocytes # 1.8 K/mcL (0.0-1.3); Monocytes % 8.5 %; Neutrophils # 17.5 K/mcL (1.6-8.9); Platelet Count 206 K/mcL (140-400); Red Blood Count 3.73 M/mcL (3.82-4.97); Red Cell Distribution Width 14.3 % (11.5-14.5); Segmented Neutrophils % 83.5 %; White Blood Count 20.9 K/mcL (4.3-11.1)
[2019-05-22 04:02] LABS: Prothrombin Time 11.1 Seconds (9.4-12.1)
[2019-05-22 04:47] LABS: Calcium 7.7 mg/dL (8.6-10.3); Magnesium 1.5 mg/dL (1.6-2.6); Phosphorous 4.4 mg/dL (2.7-4.5); Potassium 4.9 mEq/L (3.5-5.1)
[2019-05-22] MEDS: Insulin LISPRO 300 UNITS/3 ML VIAL SQ SCH ×5 (04:56→20:32)
[2019-05-22] MEDS: 0.9 % Sodium Chloride 1,000 ML IVC SCH ×3 (04:58→20:28)
[2019-05-22] MEDS: Piperacillin/Tazobactam 3.375 GM in 0.9 % Sodium Chloride Mini Bag 100 ML IVPB SCH ×2 (04:58→17:51)
--- NOTE | 2019-05-22 07:41 | Pulmonology Consult Note ---
<Katalina Cheng R - Last Filed: 05/22/19 16:17> Date of Encounter: 05/22/19 Time of Encounter: 07:41 Assessment and Plan (1) Septic shock Current Visit: Yes Status: Acute Likely secondary to UTI BCx and UCx pending Lactate peaked at 7.9 Most recent lactic acid 4.5 Recheck lactics q6H until normalizes Currently receiving fluids at 125mls/hr BPs remain borderline, will start Levo if they continue to decrease Vanc and Zosyn day 2 GB US to rule out cholelithiasis Surgery consulted and following (2) Closed right hip fracture Current Visit: Yes Status: Acute Pt had mechanical fall at home on 05/21 Right impacted transcervical femoral fracture demonstrated on CT scan Ortho consulted and following Deferring surgical treatment until BPs and lactic acidosis are better treated Qualifiers: Encounter type: initial encounter Qualified Code(s): S72.001A - Fracture of unspecified part of neck of right femur, initial encounter for closed fracture (3) Hypotension Current Visit: Yes Status: Acute Likely secondary to sepsis Right femoral central line placed last night for pressor use Pt has not required levophed at this point for pressure support but her BPs remain borderline Qualifiers: Hypotension type: unspecified hypotension type Qualified Code(s): I95.9 - Hypotension, unspecified (4) Metabolic acidosis Current Visit: Yes Status: Acute Lactic acidosis likely secondary to septic shock Lactate peaked at 7.9 Most recent lactic acid 4.5 Recheck lactics q6H until normalizes Currently receiving fluids at 125mls/hr (5) TONY (acute kidney injury) Current Visit: Yes Status: Acute Creatinine worsening at 2.03 today Continue IV fluids Continue to monitor Avoid nephrotoxic drugs Pt has been oliguric today with 80mmls out since this morning repeat bmp pending consider nephro consult (6) UTI (urinary tract infection) Current Visit: Yes Status: Acute Pt has reported UTI 1 week ago and received outpt treatment Urinalysis in ED shows signs of infection Treatment as above Qualifiers: Urinary tract infection type: site unspecified Hematuria presence: without hematuria Qualified Code(s): N39.0 - Urinary tract infection, site not specified (7) Thickening of wall of gallbladder Current Visit: Yes Status: Acute CT scan of abdomen and pelvis demonstrated a thickened gallbladder wall Ultrasound of the gallbladder shows a regular gallbladder wall thickening with some surrounding fluid as reported by [facility] Does not think this is cholecystitis but traumatic gallbladder injury is a possibility [facility] has been consult today and is following the patient Liver function tests are within normal limits Patient does not have any abdominal pain Unlikely to be atraumatic gallbladder injury but we will continue to monitor (8) T2DM (type 2 diabetes mellitus) Current Visit: Yes Status: Acute Detemir 15U HS SSI and Accu-Cheks q4H Qualifiers: 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: with 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 use Diabetes mellitus complication status: with ketoacidosis Diabetes mellitus complication detail: without coma Qualified Code(s): E11.10 - Type 2 diabetes mellitus with ketoacidosis without coma; Z79.4 - shelter (current) use of insulin (9) DVT prophylaxis Current Visit: Yes Status: Acute SQ heparin History of Present Illness Consult date: 05/21/19 Requesting physician: Abebe Cordova Reason for consult: other History of present illness: Patient is a 69-year-old female with past medical history of diabetes, hypertension, seizure disorder who presents to the emergency department after a fall at home. CT imaging of the head and neck were unremarkable. She was found to have a broken right hip and was initially admitted to the floor. She became hypotensive yesterday and was transferred to the ICU and had a central line placed in her right femoral vein. This is suspected to be secondary to sepsis from a urinary tract infection. Blood cultures were obtained and are pending at this time. The patient is on Zosyn and vancomycin day 2. The patient was supposed to go to surgery today for right hip arthroplasty but that will be postponed tomorrow secondary to her lactic acidosis and hypotension. Lactic acid was at its highest yesterday at 7.9, with fluids this has decreased to 4.5. Surgery was consulted when CT scan showed evidence of diffuse gallbladder wall thickening and ultrasound of the gallbladder is pending at this time. They did not believe that is acute cholecystitis as her liver function tests are all within normal limits. White count increased today to 20.9. Patient did not start levophed last night and her blood pressure has continued to be stable but borderline. Pt is full code. Past Med Surg Social Fam HX - Past Medical History Medical history: CVA, dementia, diabetes, hyperlipidemia, hypertension, TIA, other Additional medical history: Anemia Psychiatric history: no psych history - Past Surgical History Surgical History: orthopedic, other Additional surgical history: RIGHT FOOT SX, NECK SX. - Social History Smoking Status: Former smoker Smokeless Tobacco Status: No Alcohol use: none Drug use: none - Family History Mother Adopted: No Family Member Ethnicity: Non- Living Status: Hx Family Cardiac Disorders: Yes Hx Family Endocrine Disorder: Yes Medications and Allergies Aspirin Enteric Coated [Aspirin EC] 81 mg PO DAILY 10/04/15 [History] Atorvastatin [Lipitor] 20 mg PO DAILY 10/04/15 [History] Escitalopram [Lexapro] 20 mg PO DAILY 10/04/15 [History] Insulin Glargine [Lantus] 18 unit SQ HS 10/04/15 [History] Metformin HCl [Glucophage] 1,000 mg PO BIDWM 10/04/15 [History] Cyanocobalamin/Folic AC/Vit B6 [Folbic Tablet] 1 each PO DAILY 12/25/18 [History] LevETIRAcetam [Keppra] 500 mg PO BID 12/25/18 [History] Melatonin 5 mg PO HS 12/25/18 [History] Rivastigmine Tartrate (oral) [Exelon] 1.5 mg PO BID 12/25/18 [History] Triamterene/Hydrochlorothiazid [Triamterene-Hctz 75-50 mg Tab] 1 tab PO DAILY 12/25/18 [History] Omeprazole [PriLOSEC] 20 mg PO DAILY 03/21/19 [History] Ferrous Sulfate 650 mg PO DAILY 05/21/19 [History] Cefdinir [Omnicef] 300 mg PO BID 05/22/19 [History] Insulin ASPART [NovoLOG] 5 - 10 unit SQ ACHS PRN 05/22/19 [History] Lisinopril [Zestril] 20 mg PO DAILY 05/22/19 [History] Magnesium Oxide [Magnesium] 800 mg PO HS 05/22/19 [History] Magnesium Oxide [Mgo] 400 mg PO QAM 05/22/19 [History] Metoprolol Tartrate 50 mg PO BID 05/22/19 [History] Allergy/AdvReac Type Severity Reaction Status Date / Time Erythromycin Base Allergy Hives Verified 12/29/15 17:40 NSAIDS (Non-Steroidal Allergy See Verified 10/04/15 13:39 Anti-Inflamma Comments shellfish derived Allergy See Verified 10/04/15 13:39 Comments Sulfa (Sulfonamide Allergy See Verified 12/29/15 17:40 Antibiotics) Comments All Systems: The remainder of the systems were reviewed and are negative - Constitutional Constitutional: weakness, no chills, no fever(s) - EENT Nose, mouth and throat: no dizziness, no vertigo - Cardiovascular Cardiovascular: no chest pain, no dyspnea, no dyspnea on exertion - Respiratory Respiratory: no cough, no dyspnea, no wheezing - Gastrointestinal Gastrointestinal: no abdominal pain, no diarrhea, no nausea, no vomiting - Genitourinary Genitourinary: no dysuria, no hematuria - Musculoskeletal Musculoskeletal: weakness, other (right hip pain) - Integumentary Integumentary: no rash Physical Examination Vital Signs: Vital Signs, Last 4 Hours Temp Pulse Resp BP Pulse Ox 05/22/19 06:00 71 16 93/68 100 05/22/19 05:00 69 13 84/67 100 05/22/19 04:15 96.7 F L 05/22/19 04:00 71 17 81/61 99 General appearance: no acute distress, alert Eyes: nonicteric Effort: normal Auscultation: bilateral: clear Cardiovascular: regular rate and rhythm Integumentary: normal Extremities: no edema, pink and warm Musculoskeletal: no deformities, joint tenderness (right hip) normal mental status, non-focal exam, pupils equal and round, other (alert and oriented to self and place) mood appropriate, affect normal Results - Laboratory Findings CBC and BMP: 05/22/19 03:40 05/22/19 03:40 PT/INR, D-dimer PT 11.1 Seconds (9.4-12.1) 05/22/19 03:40 Abnormal lab findings: Abnormal lab results WBC 20.9 K/mcL (4.3-11.1) H 05/22/19 03:40 RBC 3.73 M/mcL (3.82-4.97) L 05/22/19 03:40 Hgb 11.1 g/dL (11.5-15.4) L 05/22/19 03:40 MCHC 30.2 g/dL (31.6-35.5) L 05/22/19 03:40 Neutrophils # 17.5 K/mcL (1.6-8.9) H 05/22/19 03:40 Monocytes # 1.8 K/mcL (0.0-1.3) H 05/22/19 03:40 Sodium 132 mEq/L (136-145) L 05/22/19 03:40 Chloride 94 mEq/L (98-107) L 05/21/19 13:20 Carbon Dioxide 17 mEq/L (23-29) L 05/22/19 03:40 BUN 32 mg/dL (8-23) H 05/22/19 03:40 Creatinine 2.03 mg/dL (0.60-1.20) H 05/22/19 03:40 Est GFR ( Amer) 29 (> 60) L 05/22/19 03:40 Est GFR (Non-Af Amer) 24 (> 60) L 05/22/19 03:40 Glucose 167 mg/dL (70-105) H 05/22/19 03:40 POC Glucose 238 mg/dL (70-99) H 05/21/19 23:12 Lactic Acid 6.2 mmol/L (0.5-2.2) H* 05/22/19 03:34 Calcium 7.7 mg/dL (8.6-10.3) L 05/22/19 03:40 Magnesium 1.5 mg/dL (1.6-2.6) L 05/22/19 03:40 Total Bilirubin 0.2 mg/dL (0.3-1.0) L 05/22/19 02:00 Serum Total Protein 5.8 g/dL (6.4-8.9) L 05/22/19 02:00 Albumin 3.3 g/dL (3.5-5.7) L 05/22/19 02:00 Beta-Hydroxybutyric Acd 0.39 mmol/L (0.02-0.27) H 05/21/19 13:21 Urine Clarity Turbid (Clear) A 05/21/19 14:30 Ur Specific Bypro > 1.030 (1.010-1.025) H 05/21/19 14:30 Urine Protein 30 mg/dL (Neg-Trace) H 05/21/19 14:30 Urine Glucose (UA) 250 mg/dL (Normal) H 05/21/19 14:30 Urine Blood Large (Negative) H 05/21/19 14:30 Ur Leukocyte Esterase Large (Negative) H 05/21/19 14:30 Urine Microscopic RBC 15-30 per hpf (0-3) H 05/21/19 14:30 Urine Microscopic WBC TNTC per hpf (0-3) H 05/21/19 14:30 Ur Squamous Epith Cells Many per lpf (None-Few) H 05/21/19 14:30 Ur Culture Indicated? YES (NO) A 05/21/19 14:30 - Microbiology Findings Microbiology Findings: Microbiology, Last 48 Hours 05/21/19 19:41 Blood Culture - Preliminary Peripheral Venipuncture Culture is incubating and being continuously monitored for growth. Final report to follow. 05/21/19 19:33 Blood Culture - Preliminary Peripheral Venipuncture Culture is incubating and being continuously monitored for growth. Final report to follow. 05/21/19 14:30 Urine Culture - Preliminary Urine,Clean Catch Culture is incubating. - Clinical Findings Intake & Output: Intake & Output 05/21/19 05/21/19 05/22/19 15:59 23:59 07:59 Intake Total 1000 / 1000 0 / 1000 1100 / 1100 Output Total 235 / 235 Balance 1000 / 1000 0 / 1000 865 / 865 Weight 58.967 kg 58.3 kg 60.4 kg Consult Discharge Plan - Plan Referrals: Trav Vivar DO [Primary Care Provider] - <Jose A Mcdaniel - Last Filed: 05/23/19 13:08> Date of Encounter: 05/22/19 All Systems: The remainder of the systems were reviewed and are negative Physical Examination Vital Signs: Vital Signs, Last 4 Hours Temp Pulse Resp BP Pulse Ox 05/22/19 09:30 77 18 80/67 94 05/22/19 08:30 77 20 90/59 92 05/22/19 07:45 97.0 F L 05/22/19 07:30 78 18 86/66 93 Results - Laboratory Findings CBC and BMP: 05/23/19 06:20 05/23/19 04:30 PT/INR, D-dimer PT 11.1 Seconds (9.4-12.1) 05/22/19 03:40 Abnormal lab findings: Abnormal lab results WBC 20.9 K/mcL (4.3-11.1) H 05/22/19 03:40 RBC 3.73 M/mcL (3.82-4.97) L 05/22/19 03:40 Hgb 11.1 g/dL (11.5-15.4) L 05/22/19 03:40 MCHC 30.2 g/dL (31.6-35.5) L 05/22/19 03:40 Neutrophils # 17.5 K/mcL (1.6-8.9) H 05/22/19 03:40 Monocytes # 1.8 K/mcL (0.0-1.3) H 05/22/19 03:40 Sodium 132 mEq/L (136-145) L 05/22/19 03:40 Chloride 94 mEq/L (98-107) L 05/21/19 13:20 Carbon Dioxide 17 mEq/L (23-29) L 05/22/19 03:40 BUN 32 mg/dL (8-23) H 05/22/19 03:40 Creatinine 2.03 mg/dL (0.60-1.20) H 05/22/19 03:40 Est GFR ( Amer) 29 (> 60) L 05/22/19 03:40 Est GFR (Non-Af Amer) 24 (> 60) L 05/22/19 03:40 Glucose 167 mg/dL (70-105) H 05/22/19 03:40 POC Glucose 238 mg/dL (70-99) H 05/21/19 23:12 Hemoglobin A1c 7.8 % (-5.6) H 05/22/19 03:40 Lactic Acid 6.2 mmol/L (0.5-2.2) H* 05/22/19 03:34 Calcium 7.7 mg/dL (8.6-10.3) L 05/22/19 03:40 Magnesium 1.5 mg/dL (1.6-2.6) L 05/22/19 03:40 Total Bilirubin 0.2 mg/dL (0.3-1.0) L 05/22/19 02:00 Serum Total Protein 5.8 g/dL (6.4-8.9) L 05/22/19 02:00 Albumin 3.3 g/dL (3.5-5.7) L 05/22/19 02:00 Beta-Hydroxybutyric Acd 0.39 mmol/L (0.02-0.27) H 05/21/19 13:21 Urine Clarity Turbid (Clear) A 05/21/19 14:30 Ur Specific Bypro > 1.030 (1.010-1.025) H 05/21/19 14:30 Urine Protein 30 mg/dL (Neg-Trace) H 05/21/19 14:30 Urine Glucose (UA) 250 mg/dL (Normal) H 05/21/19 14:30 Urine Blood Large (Negative) H 05/21/19 14:30 Ur Leukocyte Esterase Large (Negative) H 05/21/19 14:30 Urine Microscopic RBC 15-30 per hpf (0-3) H 05/21/19 14:30 Urine Microscopic WBC TNTC per hpf (0-3) H 05/21/19 14:30 Ur Squamous Epith Cells Many per lpf (None-Few) H 05/21/19 14:30 Ur Culture Indicated? YES (NO) A 05/21/19 14:30 - Microbiology Findings Microbiology Findings: Microbiology, Last 48 Hours 05/21/19 19:41 Blood Culture - Preliminary Peripheral Venipuncture Culture is incubating and being continuously monitored for growth. Final report to follow. 05/21/19 19:33 Blood Culture - Preliminary Peripheral Venipuncture Culture is incubating and being continuously monitored for growth. Final report to follow. 05/21/19 14:30 Urine Culture - Preliminary Urine,Clean Catch Culture is incubating. - Clinical Findings Intake & Output: Intake & Output 05/21/19 05/22/19 05/22/19 23:59 07:59 15:59 Intake Total 0 / 1000 1100 / 1100 Output Total 285 / 285 Balance 0 / 1000 815 / 815 Weight 58.3 kg 60.4 kg - Attending Attestation I examined this patient and my medical decision-making was reviewed with the Resident Physician. I agree with the documented findings, disposition and treatment plan as described except to the extent set forth below. Patient seen and examined. Labs, radiology, chart personally reviewed. Agree with resident's history and physical, assessment, plan with following comments: FINAL FINISHER: Patient follows commands, however she is lethargic and alert and oriented. Pulmonary: Acceptable oxygenation and ventilation, however she is at risk with atelectasis and also fluid resuscitation. Patient will be monitored closely and encouraged incentive spirometry. Cardiovascular: Patient still have borderline hypotensive and she might need to be on pressor. There is no plan for surgery today. GI: Nutrition per dietary and GI prophylaxis per routine Heme: DVT prophylaxis per routine ID: Continue antibiotics and plan to de-escalation. Patient has severer sepsis and continue with fluid resuscitation. Central line was placed in case patient needs vasopressor, hopefully she will respond to the fluid and she does not need vasopressor. Patient is on broad-spectrum antibiotic and will follow-up when the culture and sensitivities. Renal; urine out put and renal function reviewed. Endorcine: blood glucose is monitored Lines: all lines checked and no evidence of infections Skin: skin care to prevent pressure ulcers per nursing routine care Dispo: ICU Code: Full. Prognosis. Fair Will monitor patient in ICU and if her condition improves then she will need to have her surgery done. I spent 40 min of Critical Care time with this patient. It involved decision making of high complexity to assess, manipulate, and support vital organ system failure and/or to prevent further life threatening deterioration of the pa ankur's condition. The time involved in the performance of separately reportable procedures was not counted toward critical care time.
[2019-05-22] MEDS ORDERED: cefTRIAXone 1,000 MG in Water for inj. (sterile) 10 ML IVP SCH (09:00)
[2019-05-22] MEDS ORDERED: Vancomycin 1 EACH in 0.9 % Sodium Chloride 250 ML IVPB PRN (09:00)
[2019-05-22 09:16] LABS: Estimated Average Glucose 177 mg/dl
[2019-05-22] MEDS ORDERED: Calcium Gluconate 1gm/50mL 1 GM/50 ML BAG IVPB ONE (09:53)
[2019-05-22] MEDS ORDERED: Potassium Phosphate 44 MEQ in 0.9 % Sodium Chloride 250 ML IVPB PRN (09:55)
[2019-05-22] MEDS ORDERED: Potassium Chloride 40 MEQ/200 ML BAG IVPB PRN (09:55)
--- NOTE | 2019-05-22 10:05 | AcuteCare Surgery Consult Note ---
Date of Encounter: 05/22/19 Time of Encounter: 10:02 Assessment and Plan (1) Thickening of wall of gallbladder Current Visit: Yes Status: Acute 69F s/p fall with hip fracture with concern for gallbladder wall thickening; no history to suggest gallbladder disease, completely benign abdomen; Unlikely to have active gallbladder disease. liver enzymes wnl; no acute surgery general surgery will sign off, but please call back should new questions or con cerns arise. History of Present Illness Consult date: 05/22/19 History of present illness: 69F PMH significant for CVA, DM, HLD, HTN, GERD who presented to the ED with acute fracture of the R hip. During her work up she was found to have a UTI as well as a concern for gallbladder wall thickening with concern for possible acute cholecystitis. When talking with the patient she does not report of any abdominal pain, nausea or vomiting with association with meals. NO reports of fevers, chills, cheat pain, nor shortness of breath. General surgery was consulted for management recommendations. Past Med Surg Social Fam HX - Past Medical History Medical history: CVA, dementia, diabetes, hyperlipidemia, hypertension, TIA, other Additional medical history: Anemia Psychiatric history: no psych history - Past Surgical History Surgical History: orthopedic, other Additional surgical history: RIGHT FOOT SX, NECK SX. - Social History Smoking Status: Former smoker Smokeless Tobacco Status: No Alcohol use: none Drug use: none - Family History Mother Adopted: No Family Member Ethnicity: Non- Living Status: Hx Family Cardiac Disorders: Yes Hx Family Endocrine Disorder: Yes Medications and Allergies Aspirin Enteric Coated [Aspirin EC] 81 mg PO DAILY 10/04/15 [History] Atorvastatin [Lipitor] 20 mg PO DAILY 10/04/15 [History] Escitalopram [Lexapro] 20 mg PO DAILY 10/04/15 [History] Insulin Glargine [Lantus] 18 unit SQ HS 10/04/15 [History] Metformin HCl [Glucophage] 1,000 mg PO BIDWM 10/04/15 [History] Cyanocobalamin/Folic AC/Vit B6 [Folbic Tablet] 1 each PO DAILY 12/25/18 [History] LevETIRAcetam [Keppra] 500 mg PO BID 12/25/18 [History] Melatonin 5 mg PO HS 12/25/18 [History] Rivastigmine Tartrate (oral) [Exelon] 1.5 mg PO BID 12/25/18 [History] Triamterene/Hydrochlorothiazid [Triamterene-Hctz 75-50 mg Tab] 1 tab PO DAILY 12/25/18 [History] Omeprazole [PriLOSEC] 20 mg PO DAILY 03/21/19 [History] Ferrous Sulfate 650 mg PO DAILY 05/21/19 [History] Cefdinir [Omnicef] 300 mg PO BID 05/22/19 [History] Insulin ASPART [NovoLOG] 5 - 10 unit SQ ACHS PRN 05/22/19 [History] Lisinopril [Zestril] 20 mg PO DAILY 05/22/19 [History] Magnesium Oxide [Magnesium] 800 mg PO HS 05/22/19 [History] Magnesium Oxide [Mgo] 400 mg PO QAM 05/22/19 [History] Metoprolol Tartrate 50 mg PO BID 05/22/19 [History] Allergy/AdvReac Type Severity Reaction Status Date / Time Erythromycin Base Allergy Hives Verified 12/29/15 17:40 NSAIDS (Non-Steroidal Allergy See Verified 10/04/15 13:39 Anti-Inflamma Comments shellfish derived Allergy See Verified 10/04/15 13:39 Comments Sulfa (Sulfonamide Allergy See Verified 12/29/15 17:40 Antibiotics) Comments Review of Systems All systems PM: 12 point ROS negative besides HPI findings General Surgery Exam Initial Vital Signs Pulse Resp BP Pulse Ox 82 16 95/65 93 05/21/19 12:34 05/21/19 12:34 05/21/19 12:34 05/21/19 12:34 - General physical appearance no distress - Eyes PERRL, normal ocular movement - ENT normocephalic - Neck trachea midline, no lymphadectomy - Respiratory normal expansion, normal respiratory effort - Cardiovascular Cardiovascular exam: Present: RRR - Abdomen Abdomen general surgery: Present: soft, non tender - Integumentary Integumentary general surgery: Present: warm and dry - Neurologic Present: CN 2-12 grossly intact - Musculoskeletal Present: normal posture - Psychiatric Psychiatric general surgery: Present: A&Ox3 Exam Initial Vital Signs Pulse Resp BP Pulse Ox 82 16 95/65 93 05/21/19 12:34 05/21/19 12:34 05/21/19 12:34 05/21/19 12:34 Results - Labs 05/22/19 03:40 05/22/19 03:40 Abnormal lab results WBC 20.9 K/mcL (4.3-11.1) H 05/22/19 03:40 RBC 3.73 M/mcL (3.82-4.97) L 05/22/19 03:40 Hgb 11.1 g/dL (11.5-15.4) L 05/22/19 03:40 MCHC 30.2 g/dL (31.6-35.5) L 05/22/19 03:40 Neutrophils # 17.5 K/mcL (1.6-8.9) H 05/22/19 03:40 Monocytes # 1.8 K/mcL (0.0-1.3) H 05/22/19 03:40 Sodium 132 mEq/L (136-145) L 05/22/19 03:40 Chloride 94 mEq/L (98-107) L 05/21/19 13:20 Carbon Dioxide 17 mEq/L (23-29) L 05/22/19 03:40 BUN 32 mg/dL (8-23) H 05/22/19 03:40 Creatinine 2.03 mg/dL (0.60-1.20) H 05/22/19 03:40 Est GFR ( Amer) 29 (> 60) L 05/22/19 03:40 Est GFR (Non-Af Amer) 24 (> 60) L 05/22/19 03:40 Glucose 167 mg/dL (70-105) H 05/22/19 03:40 POC Glucose 238 mg/dL (70-99) H 05/21/19 23:12 Hemoglobin A1c 7.8 % (-5.6) H 05/22/19 03:40 Lactic Acid 6.2 mmol/L (0.5-2.2) H* 05/22/19 03:34 Calcium 7.7 mg/dL (8.6-10.3) L 05/22/19 03:40 Magnesium 1.5 mg/dL (1.6-2.6) L 05/22/19 03:40 Total Bilirubin 0.2 mg/dL (0.3-1.0) L 05/22/19 02:00 Serum Total Protein 5.8 g/dL (6.4-8.9) L 05/22/19 02:00 Albumin 3.3 g/dL (3.5-5.7) L 05/22/19 02:00 Beta-Hydroxybutyric Acd 0.39 mmol/L (0.02-0.27) H 05/21/19 13:21 Urine Clarity Turbid (Clear) A 05/21/19 14:30 Ur Specific [place] > 1.030 (1.010-1.025) H 05/21/19 14:30 Urine Protein 30 mg/dL (Neg-Trace) H 05/21/19 14:30 Urine Glucose (UA) 250 mg/dL (Normal) H 05/21/19 14:30 Urine Blood Large (Negative) H 05/21/19 14:30 Ur Leukocyte Esterase Large (Negative) H 05/21/19 14:30 Urine Microscopic RBC 15-30 per hpf (0-3) H 05/21/19 14:30 Urine Microscopic WBC TNTC per hpf (0-3) H 05/21/19 14:30 Ur Squamous Epith Cells Many per lpf (None-Few) H 05/21/19 14:30 Ur Culture Indicated? YES (NO) A 05/21/19 14:30 Diabetes panel 05/21/19 05/21/19 05/21/19 Range/Units 13:20 19:44 22:48 Sodium 130 L 128 L 131 L (136-145) mEq/L Potassium 4.5 4.7 4.8 (3.5-5.1) mEq/L Chloride 94 L 99 100 (98-107) mEq/L Carbon Dioxide 17 L 16 L 16 L (23-29) mEq/L BUN 30 H 30 H 31 H (8-23) mg/dL Creatinine 1.70 H 1.62 H 1.83 H (0.60-1.20) mg/dL Glucose 317 H 248 H 251 H (70-105) mg/dL Hemoglobin A1c ( - 5.6) % Calcium 8.8 7.8 L 7.6 L (8.6-10.3) mg/dL AST (13-39) Units/L ALT (7-52) Units/L Alkaline Phosphatase (34-104) Units/L Albumin (3.5-5.7) g/dL 07/05/22/19 05/22/19 Range/Units 02:00 03:40 03:40 Sodium 132 L (136-145) mEq/L Potassium 4.9 (3.5-5.1) mEq/L Chloride 101 (98-107) mEq/L Carbon Dioxide 17 L (23-29) mEq/L BUN 32 H (8-23) mg/dL Creatinine 2.03 H (0.60-1.20) mg/dL Glucose 167 H (70-105) mg/dL Hemoglobin A1c 7.8 H ( - 5.6) % Calcium 7.7 L (8.6-10.3) mg/dL AST 27 (13-39) Units/L ALT 20 (7-52) Units/L Alkaline Phosphatase 37 (34-104) Units/L Albumin 3.3 L (3.5-5.7) g/dL Calcium panel 05/21/19 05/21/19 05/21/19 Range/Units 13:20 19:44 22:48 Calcium 8.8 7.8 L 7.6 L (8.6-10.3) mg/dL Phosphorus (2.7-4.5) mg/dL Albumin (3.5-5.7) g/dL 05/22/19 05/22/19 05/22/19 Range/Units 02:00 03:40 03:40 Calcium 7.7 L (8.6-10.3) mg/dL Phosphorus 4.4 (2.7-4.5) mg/dL Albumin 3.3 L (3.5-5.7) g/dL Pituitary panel 05/21/19 05/21/19 05/21/19 Range/Units 13:20 19:44 22:48 Sodium 130 L 128 L 131 L (136-145) mEq/L Potassium 4.5 4.7 4.8 (3.5-5.1) mEq/L Chloride 94 L 99 100 (98-107) mEq/L Carbon Dioxide 17 L 16 L 16 L (23-29) mEq/L BUN 30 H 30 H 31 H (8-23) mg/dL Creatinine 1.70 H 1.62 H 1.83 H (0.60-1.20) mg/dL Glucose 317 H 248 H 251 H (70-105) mg/dL Calcium 8.8 7.8 L 7.6 L (8.6-10.3) mg/dL 05/22/19 Range/Units 03:40 Sodium 132 L (136-145) mEq/L Potassium 4.9 (3.5-5.1) mEq/L Chloride 101 (98-107) mEq/L Carbon Dioxide 17 L (23-29) mEq/L BUN 32 H (8-23) mg/dL Creatinine 2.03 H (0.60-1.20) mg/dL Glucose 167 H (70-105) mg/dL Calcium 7.7 L (8.6-10.3) mg/dL Adrenal panel 05/21/19 05/21/19 05/21/19 Range/Units 13:20 19:44 22:48 Sodium 130 L 128 L 131 L (136-145) mEq/L Potassium 4.5 4.7 4.8 (3.5-5.1) mEq/L Chloride 94 L 99 100 (98-107) mEq/L Carbon Dioxide 17 L 16 L 16 L (23-29) mEq/L BUN 30 H 30 H 31 H (8-23) mg/dL Creatinine 1.70 H 1.62 H 1.83 H (0.60-1.20) mg/dL Glucose 317 H 248 H 251 H (70-105) mg/dL Calcium 8.8 7.8 L 7.6 L (8.6-10.3) mg/dL Total Bilirubin (0.3-1.0) mg/dL AST (13-39) Units/L ALT (7-52) Units/L Alkaline Phosphatase (34-104) Units/L Albumin (3.5-5.7) g/dL 05/22/19 05/22/19 Range/Units 02:00 03:40 Sodium 132 L (136-145) mEq/L Potassium 4.9 (3.5-5.1) mEq/L Chloride 101 (98-107) mEq/L Carbon Dioxide 17 L (23-29) mEq/L BUN 32 H (8-23) mg/dL Creatinine 2.03 H (0.60-1.20) mg/dL Glucose 167 H (70-105) mg/dL Calcium 7.7 L (8.6-10.3) mg/dL Total Bilirubin 0.2 L (0.3-1.0) mg/dL AST 27 (13-39) Units/L ALT 20 (7-52) Units/L Alkaline Phosphatase 37 (34-104) Units/L Albumin 3.3 L (3.5-5.7) g/dL All other labs normal. - Imaging CT scan - abdomen: report reviewed, image reviewed CT scan - pelvis: report reviewed, image reviewed Consult Discharge Plan - Plan Referrals: Trav Vivar DO [Primary Care Provider] -
[2019-05-22 10:31] LABS: VBG Ionized Calcium 1.02 mmol/L (1.15-1.35)
[2019-05-22] MEDS: *HR* HYDROcodone/Acet 5/325 mg TABLET PO PRN ×2 (11:25→18:29)
[2019-05-22] MEDS: levETIRAcetam 250 MG TABLET PO SCH ×2 (11:26→20:28)
[2019-05-22] MEDS: *HR* Heparin 5,000 UNIT/ML VIAL SQ SCH ×2 (11:37→17:56)
[2019-05-22] MEDS: Calcium Gluconate 1gm/50mL 1 GM/50 ML BAG IVPB PRN ×2 (13:01→20:28)
--- NOTE | 2019-05-22 15:32 | Electrocardiograph Report ---
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
--- NOTE | 2019-05-22 15:46 | Orthopedics Progress Note ---
Date of Encounter: 05/22/19 Time of Encounter: 08:30 - Assessment and Plan (1) Right femoral fracture Current Visit: Yes Status: Acute Qualifiers: Encounter type: initial encounter Femur location: unspecified portion of femur Fracture type: closed Fracture morphology: unspecified fracture morphology Qualified Code(s): S72.91XA - Unspecified fracture of right femur, initial encounter for closed fracture (2) Vertebral compression fracture Current Visit: Yes Status: Acute Qualifiers: Encounter type: initial encounter Fracture of vertebra location: thoracic Thoracic vertebra fracture level: unspecified thoracic vertebra Qualified Code(s): S22.000A - Wedge compression fracture of unspecified thoracic vertebra, initial encounter for closed fracture (3) Fall Current Visit: Yes Status: Acute Qualifiers: Encounter type: initial encounter Qualified Code(s): W19.XXXA - Unspecified fall, initial encounter Subjective Principal diagnosis: right femur fracture Interval history: Patient seen in ICU Transferred after developing hemodynamic instability overnight. Patient continues fragile hemodynamic stability Case reviewed with Dr. Quintero and Dr. Ibarra - postpone surgical intervention to the right hip at this time until Monday, 05/24. Patient seen at bedside. Alert and oriented to person, place. Not oriented to time. Patient states pain adequately controlled No ecchymosis or gross deformity noted to the right hip Mild calf and hammer tenderness to RLE - no erythema or warmth noted. No tenderness, erythema or warmth noted to LLE. Motion intact to LLE. Ankle dorsiflexion intact RLE. Neurovascularly itnact to b/l LE Sensation intact b/l LE. NPO midnight 05/24 Surgery recommended: right hip hemiarthroplasty 05/[address] Ibarra Will review consent with patient and spouse, who per patient, is her POA and next of kin. No hip motion Nonweightbearing to RLE Topical analgesics as needed to back - patient denies any concern at present re; pain in back which might be attributable to compression fractures Please reach out with any questions or concerns re: patient's orthopedic health. Objective Vital signs: Vital Signs Temp Pulse Resp BP Pulse Ox 05/22/19 13:10 74 19 121/72 93 05/22/19 12:10 78 21 104/67 92 05/22/19 11:49 97.6 F 05/22/19 11:30 77 21 100/66 93 05/22/19 10:30 76 19 83/54 93 05/22/19 09:30 77 18 80/67 94 05/22/19 08:30 77 20 90/59 92 05/22/19 07:45 97.0 F L 05/22/19 07:30 78 18 86/66 93 05/22/19 06:00 71 16 93/68 100 05/22/19 05:00 69 13 84/67 100 05/22/19 04:15 96.7 F L 05/22/19 04:00 71 17 81/61 99 05/22/19 03:32 71 05/22/19 03:00 71 17 85/62 98 05/22/19 02:00 71 16 80/60 99 05/22/19 01:00 73 24 116/62 91 05/22/19 00:11 96.9 F L 05/22/19 00:00 77 25 116/74 96 05/21/19 23:31 76 05/21/19 23:00 78 21 123/77 92 05/21/19 22:00 75 24 127/85 95 05/21/19 21:00 75 18 101/55 95 05/21/19 20:00 97.0 F L 75 19 108/67 96 05/21/19 18:33 97.2 F L 71 15 89/67 91 05/21/19 17:50 97 F L 70 14 96/64 94 Intake and Output 05/21/19 05/22/19 05/22/19 23:59 07:59 15:59 Intake Total 0 / 1000 1100 / 2200 1100 / 2200 Output Total 285 / 300 15 / 300 Balance 0 / 1000 815 / 1900 1085 / 1900 Intake: IV Fluids 0 / 1000 1100 / 2200 1100 / 2200 0.9 % Sodium Chloride 1,000 ML 0 / 0 1000 / 2000 1000 / 2000 @ 125 mls/hr IVC .Q8H ERICK Rx#: [id number] Zosyn 3.375 GM In 0.9 % Sodium 100 / 200 100 / 200 Chloride (Mini-Bag +) 100 ML @ 25 mls/hr IVPB Q12HR ERICK Rx#: [id number] Output: Catheter 285 / 300 15 / 300 Other: Weight 58.3 kg 60.4 kg Blood Glucose* 246 149 130 Patient Weight 05/22/19 23:59 Weight 60.4 kg - Labs CBC & BMP: 05/22/19 03:40 05/22/19 16:58 Labs: Abnormal lab results WBC 20.9 K/mcL (4.3-11.1) H 05/22/19 03:40 RBC 3.73 M/mcL (3.82-4.97) L 05/22/19 03:40 Hgb 11.1 g/dL (11.5-15.4) L 05/22/19 03:40 MCHC 30.2 g/dL (31.6-35.5) L 05/22/19 03:40 Neutrophils # 17.5 K/mcL (1.6-8.9) H 05/22/19 03:40 Monocytes # 1.8 K/mcL (0.0-1.3) H 05/22/19 03:40 Sodium 132 mEq/L (136-145) L 05/22/19 03:40 Chloride 94 mEq/L (98-107) L 05/21/19 13:20 Carbon Dioxide 17 mEq/L (23-29) L 05/22/19 03:40 BUN 32 mg/dL (8-23) H 05/22/19 03:40 Creatinine 2.03 mg/dL (0.60-1.20) H 05/22/19 03:40 Est GFR ( Amer) 29 (> 60) L 05/22/19 03:40 Est GFR (Non-Af Amer) 24 (> 60) L 05/22/19 03:40 Glucose 167 mg/dL (70-105) H 05/22/19 03:40 POC Glucose 238 mg/dL (70-99) H 05/21/19 23:12 Hemoglobin A1c 7.8 % (-5.6) H 05/22/19 03:40 Lactic Acid 4.5 mmol/L (0.5-2.2) H* 05/22/19 10:14 Calcium 7.7 mg/dL (8.6-10.3) L 05/22/19 03:40 Venous Ioniz Calcium 1.02 mmol/L (1.15-1.35) L 05/22/19 10:25 Magnesium 1.5 mg/dL (1.6-2.6) L 05/22/19 03:40 Total Bilirubin 0.2 mg/dL (0.3-1.0) L 05/22/19 02:00 Serum Total Protein 5.8 g/dL (6.4-8.9) L 05/22/19 02:00 Albumin 3.3 g/dL (3.5-5.7) L 05/22/19 02:00 Beta-Hydroxybutyric Acd 0.39 mmol/L (0.02-0.27) H 05/21/19 13:21 Urine Clarity Turbid (Clear) A 05/21/19 14:30 Ur Specific [place] > 1.030 (1.010-1.025) H 05/21/19 14:30 Urine Protein 30 mg/dL (Neg-Trace) H 05/21/19 14:30 Urine Glucose (UA) 250 mg/dL (Normal) H 05/21/19 14:30 Urine Blood Large (Negative) H 05/21/19 14:30 Ur Leukocyte Esterase Large (Negative) H 05/21/19 14:30 Urine Microscopic RBC 15-30 per hpf (0-3) H 05/21/19 14:30 Urine Microscopic WBC TNTC per hpf (0-3) H 05/21/19 14:30 Ur Squamous Epith Cells Many per lpf (None-Few) H 05/21/19 14:30 Ur Culture Indicated? YES (NO) A 05/21/19 14:30 Consult Discharge Plan - Plan Referrals: Trav Vivar DO [Primary Care Provider] -
[2019-05-22 17:27] LABS: VBG Ionized Calcium 1.03 mmol/L (1.15-1.35)
[2019-05-22 17:41] LABS: Calcium 7.6 mg/dL (8.6-10.3); Magnesium 2.3 mg/dL (1.6-2.6); Potassium 4.7 mEq/L (3.5-5.1)
[2019-05-22] MEDS: Aspirin Enteric Coated 81 MG Tablet PO SCH (17:52)
[2019-05-22] MEDS: Melatonin 3 MG TABLET PO SCH (20:27)
[2019-05-22] MEDS: Norepinephrine 4 MG in D5% in Water 250 ML IVC SCH (20:32)
[2019-05-23] MEDS: Insulin LISPRO 300 UNITS/3 ML VIAL SQ SCH ×6 (00:45→20:34)
[2019-05-23] MEDS: *HR* OxyCODONE Immed Rel 5 MG TABLET PO PRN ×2 (00:57→18:36)
[2019-05-23] MEDS: *HR* Heparin 5,000 UNIT/ML VIAL SQ SCH ×2 (04:48→18:40)
[2019-05-23] MEDS: 0.9 % Sodium Chloride 1,000 ML IVC SCH ×2 (04:48→15:53)
[2019-05-23] MEDS: Piperacillin/Tazobactam 3.375 GM in 0.9 % Sodium Chloride Mini Bag 100 ML IVPB SCH (04:49)
[2019-05-23 04:50] LABS: VBG Ionized Calcium 1.08 mmol/L (1.15-1.35)
[2019-05-23 05:08] LABS: Calcium 7.7 mg/dL (8.6-10.3); Magnesium 2.2 mg/dL (1.6-2.6); Phosphorous 4.5 mg/dL (2.7-4.5); Potassium 4.6 mEq/L (3.5-5.1)
[2019-05-23] MEDS: Calcium Gluconate 1gm/50mL 1 GM/50 ML BAG IVPB PRN (05:27)
[2019-05-23 06:31] LABS: Basophils % 0.1 %; Eosinophils # 0.1 K/mcL (0.0-0.6); Eosinophils % 0.4 %; Hematocrit 31.5 % (35.3-44.9); Immature Granulocytes % 0.6 % (0-4); Lymphocytes # 1.7 K/mcL (0.6-4.6); Lymphocytes % 10.7 %; Mean Corpuscular HGB Conc 31.7 g/dL (31.6-35.5); Mean Corpuscular Hemoglobin 29.2 pg (28.0-33.3); Mean Platelet Volume 10.2 fL (9.4-12.4); Monocytes # 1.4 K/mcL (0.0-1.3); Monocytes % 8.7 %; Neutrophils # 12.7 K/mcL (1.6-8.9); Platelet Count 174 K/mcL (140-400); Red Blood Count 3.43 M/mcL (3.82-4.97); Red Cell Distribution Width 14.4 % (11.5-14.5); Segmented Neutrophils % 79.5 %
[2019-05-23 06:37] LABS: Mean Corpuscular Volume 91.8 fL (83.0-100.0)
--- NOTE | 2019-05-23 06:58 | Pulmonology Progress Note ---
<DarnellJose A zarate M - Last Filed: 05/23/19 10:10> Date of Encounter: 05/23/19 Objective PUL Vital signs: Last Vital Signs Temp 97.1 F L 05/23/19 08:03 Pulse 107 05/23/19 08:30 Resp 21 05/23/19 08:30 BP 161/97 05/23/19 08:30 Pulse Ox 94 05/23/19 08:30 Results - Laboratory Findings CBC and BMP: 05/23/19 06:20 05/23/19 04:30 PT/INR, D-dimer PT 11.1 Seconds (9.4-12.1) 05/22/19 03:40 Abnormal lab findings: Abnormal lab results WBC 16.0 K/mcL (4.3-11.1) H 05/23/19 06:20 RBC 3.43 M/mcL (3.82-4.97) L 05/23/19 06:20 Hgb 10.0 g/dL (11.5-15.4) L 05/23/19 06:20 Hct 31.5 % (35.3-44.9) L 05/23/19 06:20 MCHC 30.2 g/dL (31.6-35.5) L 05/22/19 03:40 Neutrophils # 12.7 K/mcL (1.6-8.9) H 05/23/19 06:20 Monocytes # 1.4 K/mcL (0.0-1.3) H 05/23/19 06:20 Sodium 134 mEq/L (136-145) L 05/23/19 04:30 Chloride 94 mEq/L (98-107) L 05/21/19 13:20 Carbon Dioxide 18 mEq/L (23-29) L 05/23/19 04:30 BUN 37 mg/dL (8-23) H 05/23/19 04:30 Creatinine 2.48 mg/dL (0.60-1.20) H 05/23/19 04:30 Est GFR ( Amer) 23 (> 60) L 05/23/19 04:30 Est GFR (Non-Af Amer) 19 (> 60) L 05/23/19 04:30 Glucose 214 mg/dL (70-105) H 05/23/19 04:30 POC Glucose 287 mg/dL (70-99) H 05/22/19 23:46 Hemoglobin A1c 7.8 % (-5.6) H 05/22/19 03:40 Lactic Acid 2.8 mmol/L (0.5-2.2) H 05/23/19 04:30 Calcium 7.7 mg/dL (8.6-10.3) L 05/23/19 04:30 Venous Ioniz Calcium 1.08 mmol/L (1.15-1.35) L 05/23/19 04:47 Magnesium 1.5 mg/dL (1.6-2.6) L 05/22/19 03:40 Total Bilirubin 0.2 mg/dL (0.3-1.0) L 05/22/19 02:00 Serum Total Protein 5.8 g/dL (6.4-8.9) L 05/22/19 02:00 Albumin 3.3 g/dL (3.5-5.7) L 05/22/19 02:00 Beta-Hydroxybutyric Acd 0.39 mmol/L (0.02-0.27) H 05/21/19 13:21 Urine Clarity Turbid (Clear) A 05/21/19 14:30 Ur Specific [place] > 1.030 (1.010-1.025) H 05/21/19 14:30 Urine Protein 30 mg/dL (Neg-Trace) H 05/21/19 14:30 Urine Glucose (UA) 250 mg/dL (Normal) H 05/21/19 14:30 Urine Blood Large (Negative) H 05/21/19 14:30 Ur Leukocyte Esterase Large (Negative) H 05/21/19 14:30 Urine Microscopic RBC 15-30 per hpf (0-3) H 05/21/19 14:30 Urine Microscopic WBC TNTC per hpf (0-3) H 05/21/19 14:30 Ur Squamous Epith Cells Many per lpf (None-Few) H 05/21/19 14:30 Ur Culture Indicated? YES (NO) A 05/21/19 14:30 - Microbiology Findings Microbiology Findings: Microbiology, Last 48 Hours 05/21/19 14:30 Urine Culture - Final Urine,Clean Catch Serratia marcescens 05/21/19 19:41 Blood Culture - Preliminary Peripheral Venipuncture Culture is incubating and being continuously monitored for growth. Final report to follow. 05/21/19 19:33 Blood Culture - Preliminary Peripheral Venipuncture Culture is incubating and being continuously monitored for growth. Final report to follow. - Clinical Findings Intake & Output: Intake & Output 05/22/19 05/23/19 05/23/19 23:59 07:59 15:59 Intake Total 1000 / 3200 1450 / 1550 100 / 1550 Output Total 185 / 485 75 / 75 Balance 815 / 2715 1450 / 1475 25 / 1475 Weight 65.4 kg Consult Discharge Plan - Plan Referrals: Trav Vivar DO [Primary Care Provider] - - Attending Attestation I examined this patient and my medical decision-making was reviewed with the Resident Physician. I agree with the documented findings, disposition and treatment plan as described except to the extent set forth below. Patient seen and examined. Labs, radiology, chart personally reviewed. 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 Patient will be transfer to the floor. GI: Nutrition per dietary and GI prophylaxis per routine Heme: DVT prophylaxis per routine ID: Continue antibiotics and plan to de-escalation and d/c vancomycin and adjust antibiotic Renal; urine out put and renal function reviewed and nephrology is follow up Endorcine: blood glucose is monitored Lines: all lines checked and no evidence of infections and remove fem line Skin: skin care to prevent pressure ulcers per nursing routine care Dispo: floor Code: Full. Prognosis. Fair Patient stable for surgery in my opinion <Katalina Cheng - Last Filed: 05/23/19 10:19> Date of Encounter: 05/23/19 Time of Encounter: 06:58 Assessment and Plan (1) Septic shock Current Visit: Yes Status: Acute Likely secondary to UTI BCx pending UCx with serratia spp Lactate peaked at 7.9 Most recent lactic acid 2.8 Recheck lactics q6H until normalizes Currently receiving fluids at 125mls/hr BPs stabilized Vanc and Zosyn day 3 - switch to rocephin due to UCx sensitivities (2) Closed right hip fracture Current Visit: Yes Status: Acute Pt had mechanical fall at home on 05/21 Right impacted transcervical femoral fracture demonstrated on CT scan Ortho consulted and following Plan is for surgery tomorrow NPO after midnight Qualifiers: Encounter type: initial encounter Qualified Code(s): S72.001A - Fracture of unspecified part of neck of right femur, initial encounter for closed fracture (3) Hypotension Current Visit: Yes Status: Acute Resolved Likely secondary to sepsis Right femoral central line placed 2 days ago for pressor use Pt has not required levophed at this point for pressure support but her BPs remain borderline Will remove fem line Qualifiers: Hypotension type: unspecified hypotension type Qualified Code(s): I95.9 - Hypotension, unspecified (4) Metabolic acidosis Current Visit: Yes Status: Acute Lactic acidosis likely secondary to septic shock Lactate peaked at 7.9 Most recent lactic acid 2.8 Recheck lactics q6H until normalizes Currently receiving fluids at 125mls/hr (5) TONY (acute kidney injury) Current Visit: Yes Status: Acute Creatinine worsening at 2.48 today Continue IV fluids Continue to monitor Avoid nephrotoxic drugs Pt was oliguric yesterday with 485mls out Nephro consulted (6) UTI (urinary tract infection) Current Visit: Yes Status: Acute Pt has reported UTI 1 week ago and received outpt treatment Urinalysis in ED shows signs of infection Cultures show Serratia Treatment as above Qualifiers: Urinary tract infection type: site unspecified Hematuria presence: without hematuria Qualified Code(s): N39.0 - Urinary tract infection, site not specified (7) Thickening of wall of gallbladder Current Visit: Yes Status: Acute CT scan of abdomen and pelvis demonstrated a thickened gallbladder wall Ultrasound of the gallbladder shows a regular gallbladder wall thickening with some surrounding fluid as reported by [facility] Does not think this is cholecystitis but traumatic gallbladder injury is a possibility [place] surgery was consulted and do not believe the pt has a traumatic gallbladder injury Liver function tests are within normal limits Patient does not have any abdominal pain Continue to monitor (8) T2DM (type 2 diabetes mellitus) Current Visit: Yes Status: Acute Detemir 15U HS SSI and Accu-Cheks q4H Qualifiers: 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 Plan is for ortho to take to surgery for right hip arthoplasty on Monday. Creatinine continues to worsen and pt only had 485mL uop yesterday, nephrology has been consulted. Pts lactate continues to decrease and is now 2.8. Plan is for pt to be transferred out of the unit today as she has stabilized. Pain has been well controlled and pt is tolerating meals. UCx returned with Serratia species sensitive to rocephin. Objective PUL Vital signs: Last Vital Signs Temp 96.8 F L 05/22/19 23:58 Pulse 104 05/23/19 06:00 Resp 18 05/23/19 06:00 BP 166/90 05/23/19 06:00 Pulse Ox 94 05/23/19 06:00 General appearance: no acute distress, alert Eyes: nonicteric Effort: normal Auscultation: bilateral: diminished breath sounds Cardiovascular: other (tachycardic) Gastrointestinal: soft, non-tender Integumentary: normal Extremities: no edema, pink and warm normal mental status, non-focal exam, pupils equal and round, other (alert to self and place) mood appropriate, affect normal Results - Laboratory Findings CBC and BMP: 05/23/19 06:20 05/23/19 04:30 PT/INR, D-dimer PT 11.1 Seconds (9.4-12.1) 05/22/19 03:40 Abnormal lab findings: Abnormal lab results WBC 16.0 K/mcL (4.3-11.1) H 05/23/19 06:20 RBC 3.43 M/mcL (3.82-4.97) L 05/23/19 06:20 Hgb 10.0 g/dL (11.5-15.4) L 05/23/19 06:20 Hct 31.5 % (35.3-44.9) L 05/23/19 06:20 MCHC 30.2 g/dL (31.6-35.5) L 05/22/19 03:40 Neutrophils # 12.7 K/mcL (1.6-8.9) H 05/23/19 06:20 Monocytes # 1.4 K/mcL (0.0-1.3) H 05/23/19 06:20 Sodium 134 mEq/L (136-145) L 05/23/19 04:30 Chloride 94 mEq/L (98-107) L 05/21/19 13:20 Carbon Dioxide 18 mEq/L (23-29) L 05/23/19 04:30 BUN 37 mg/dL (8-23) H 05/23/19 04:30 Creatinine 2.48 mg/dL (0.60-1.20) H 05/23/19 04:30 Est GFR ( Amer) 23 (> 60) L 05/23/19 04:30 Est GFR (Non-Af Amer) 19 (> 60) L 05/23/19 04:30 Glucose 214 mg/dL (70-105) H 05/23/19 04:30 POC Glucose 287 mg/dL (70-99) H 05/22/19 23:46 Hemoglobin A1c 7.8 % (-5.6) H 05/22/19 03:40 Lactic Acid 2.8 mmol/L (0.5-2.2) H 05/23/19 04:30 Calcium 7.7 mg/dL (8.6-10.3) L 05/23/19 04:30 Venous Ioniz Calcium 1.08 mmol/L (1.15-1.35) L 05/23/19 04:47 Magnesium 1.5 mg/dL (1.6-2.6) L 05/22/19 03:40 Total Bilirubin 0.2 mg/dL (0.3-1.0) L 05/22/19 02:00 Serum Total Protein 5.8 g/dL (6.4-8.9) L 05/22/19 02:00 Albumin 3.3 g/dL (3.5-5.7) L 05/22/19 02:00 Beta-Hydroxybutyric Acd 0.39 mmol/L (0.02-0.27) H 05/21/19 13:21 Urine Clarity Turbid (Clear) A 05/21/19 14:30 Ur Specific [place] > 1.030 (1.010-1.025) H 05/21/19 14:30 Urine Protein 30 mg/dL (Neg-Trace) H 05/21/19 14:30 Urine Glucose (UA) 250 mg/dL (Normal) H 05/21/19 14:30 Urine Blood Large (Negative) H 05/21/19 14:30 Ur Leukocyte Esterase Large (Negative) H 05/21/19 14:30 Urine Microscopic RBC 15-30 per hpf (0-3) H 05/21/19 14:30 Urine Microscopic WBC TNTC per hpf (0-3) H 05/21/19 14:30 Ur Squamous Epith Cells Many per lpf (None-Few) H 05/21/19 14:30 Ur Culture Indicated? YES (NO) A 05/21/19 14:30 - Microbiology Findings Microbiology Findings: Microbiology, Last 48 Hours 05/21/19 14:30 Urine Culture - Preliminary Urine,Clean Catch Gram Negative Antwon 05/21/19 19:41 Blood Culture - Preliminary Peripheral Venipuncture Culture is incubating and being continuously monitored for growth. Final report to follow. 05/21/19 19:33 Blood Culture - Preliminary Peripheral Venipuncture Culture is incubating and being continuously tyrese tored for growth. Final report to follow. - Clinical Findings Intake & Output: Intake & Output 05/22/19 05/22/19 05/23/19 15:59 23:59 07:59 Intake Total 1100 / 3200 1000 / 3200 1450 / 1450 Output Total 15 / 485 185 / 485 Balance 1085 / 2715 815 / 2715 1450 / 1450 Weight 65.4 kg
[2019-05-23] MEDS: Aspirin Enteric Coated 81 MG Tablet PO SCH (09:01)
[2019-05-23] MEDS: *HR* HYDROcodone/Acet 5/325 mg TABLET PO PRN (09:02)
[2019-05-23] MEDS: levETIRAcetam 250 MG TABLET PO SCH ×2 (09:02→21:11)
[2019-05-23] MEDS ORDERED: Naloxone 0.4 MG/ML INJ IVP PRN (09:20)
[2019-05-23] MEDS ORDERED: Dextrose Gel 15 GM/37.5 ML TUBE PO PRN ×2 (09:20)
[2019-05-23] MEDS ORDERED: D5% in Water 1,000 ML IVC PRN (09:20)
[2019-05-23] MEDS ORDERED: Acetaminophen 325 MG TABLET PO PRN (09:20)
[2019-05-23] MEDS ORDERED: *HR* Dextrose 50 % in Water (Syg) 50 ML SYRINGE IVP PRN (09:20)
[2019-05-23] MEDS ORDERED: Vancomycin 1 EACH in 0.9 % Sodium Chloride 250 ML IVPB PRN (09:20)
[2019-05-23] MEDS ORDERED: *HR* HYDROcodone/Acet 5/325 mg TABLET PO PRN (09:20)
--- NOTE | 2019-05-23 11:27 | Nephrology Consult Note ---
Date of Encounter: 05/23/19 Time of Encounter: 11:22 Assessment and Plan (1) TONY (acute kidney injury) Current Visit: Yes Status: Acute Previous GFR's are normal. GFR is 19 today. Retroperitoneal US ordered. Urine and labs studies ordered. Strict I/O Avoid nephrotoxins and renal dose all medications. Daily weights. (2) Closed right hip fracture Current Visit: Yes Status: Acute Per ortho. Qualifiers: Encounter type: initial encounter Qualified Code(s): S72.001A - Fracture of unspecified part of neck of right femur, initial encounter for closed fracture (3) Dehydration Current Visit: Yes Status: Acute Continue IVF. (4) Fall Current Visit: Yes Status: Acute Fall precautions per hospital policy Qualifiers: Encounter type: initial encounter Qualified Code(s): W19.XXXA - Unspecified fall, initial encounter History of Present Illness - Reason for Consult Consult date: 05/23/19 Acute Kidney Injury Requesting physician: Sia Wen - Chief Complaint fall right hip fracture - History of Present Illness Ms. Ellsworth is a 69 year old female who presented to the ED yesterday with right hip pain. She was status post fall at home. PMH:CVA, dementia, diabetes, hyperlipidemia, hypertension, seizures, GERD. He was found to have a right hip fracture and a UTI in the ED. She was originally on [facility] but was transferred to ICU for hypotension. She is currently stable and not on pressor support. She appears to be a good historian, answered questions appropriately. She has never been told she has had any kidney issues in the past. 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 Denies any family history of chronic kidney disease or hemodialysis. Nice chronic NSAID use at home she reports she might take 200 of ibuprofen every 3 or 4 months. Denies any nausea, vomiting, or diarrhea at home or now. Denies any chest pain or shortness of breath. Lives at home with her . Denies any EtOH, tobacco use or illicit drug use. TONY workup has been ordered previous GFR's were normal. Past Med Surg Social Fam HX - Past Medical History Medical history: CVA, dementia, diabetes, hyperlipidemia, hypertension, TIA, other Additional medical history: Anemia Psychiatric history: no psych history - Past Surgical History Surgical History: orthopedic, other Additional surgical history: RIGHT FOOT SX, NECK SX. - Social History Smoking Status: Former smoker Smokeless Tobacco Status: No Alcohol use: none Drug use: none - Family History Mother Adopted: No Family Member Ethnicity: Non- Living Status: Hx Family Cardiac Disorders: Yes Hx Family Endocrine Disorder: Yes Medications and Allergies Aspirin Enteric Coated [Aspirin EC] 81 mg PO DAILY 10/04/15 [History] Atorvastatin [Lipitor] 20 mg PO DAILY 10/04/15 [History] Escitalopram [Lexapro] 20 mg PO DAILY 10/04/15 [History] Insulin Glargine [Lantus] 18 unit SQ HS 10/04/15 [History] Metformin HCl [Glucophage] 1,000 mg PO BIDWM 10/04/15 [History] Cyanocobalamin/Folic AC/Vit B6 [Folbic Tablet] 1 each PO DAILY 12/25/18 [History] LevETIRAcetam [Keppra] 500 mg PO BID 12/25/18 [History] Melatonin 5 mg PO HS 12/25/18 [History] Rivastigmine Tartrate (oral) [Exelon] 1.5 mg PO BID 12/25/18 [History] Triamterene/Hydrochlorothiazid [Triamterene-Hctz 75-50 mg Tab] 1 tab PO DAILY 12/25/18 [History] Omeprazole [PriLOSEC] 20 mg PO DAILY 03/21/19 [History] Ferrous Sulfate 650 mg PO DAILY 05/21/19 [History] Cefdinir [Omnicef] 300 mg PO BID 05/22/19 [History] Insulin ASPART [NovoLOG] 5 - 10 unit SQ ACHS PRN 05/22/19 [History] Lisinopril [Zestril] 20 mg PO DAILY 05/22/19 [History] Magnesium Oxide [Magnesium] 800 mg PO HS 05/22/19 [History] Magnesium Oxide [Mgo] 400 mg PO QAM 05/22/19 [History] Metoprolol Tartrate 50 mg PO BID 05/22/19 [History] Allergy/AdvReac Type Severity Reaction Status Date / Time Erythromycin Base Allergy Hives Verified 12/29/15 17:40 NSAIDS (Non-Steroidal Allergy See Verified 10/04/15 13:39 Anti-Inflamma Comments shellfish derived Allergy See Verified 10/04/15 13:39 Comments Sulfa (Sulfonamide Allergy See Verified 12/29/15 17:40 Antibiotics) Comments Review of Systems All Systems review (narrative): The Remainder of the systems are negative. Constitutional: no chills, no fatigue, no fever(s) Nose, mouth and throat: no dizziness Cardiovascular: no chest pain, no edema Gastrointestinal: no abdominal pain, no diarrhea, no nausea, no vomiting Exam - Vital Signs Vital signs: Initial Vital Signs Pulse Resp BP Pulse Ox 82 16 95/65 93 05/21/19 12:34 05/21/19 12:34 05/21/19 12:34 05/21/19 12:34 Vital Signs - Last 8 Hours Temp Pulse Resp BP Pulse Ox 05/23/19 08:30 107 21 161/97 94 05/23/19 08:03 97.1 F L 05/23/19 06:00 104 18 166/90 94 05/23/19 05:00 93 12 128/80 95 05/23/19 04:00 94 11 129/77 95 05/23/19 03:42 90 Intake and Output 05/22/19 05/23/19 05/23/19 23:59 07:59 15:59 Intake Total 1000 / 3200 1450 / 1550 100 / 1550 Output Total 185 / 485 75 / 75 Balance 815 / 2715 1450 / 1475 25 / 1475 Intake: IV Fluids 1000 / 3200 1450 / 1550 100 / 1550 0.9 % Sodium Chloride 1,000 ML 1000 / 3000 1000 / 1000 @ 125 mls/hr IVC .Q8H [facility] Rx#: [id number] Calcium Gluconate 1gm/50mL 1 gm 100 / 100 In 50 ml @ 50 mls/hr IVPB Q6HR PRN Rx#:[id number] Zosyn 3.375 GM In 0.9 % Sodium 100 / 200 100 / 200 Chloride (Mini-Bag +) 100 ML @ 25 mls/hr IVPB Q12HR [facility] Rx#: [id number] Vancocin 750 MG In 0.9 % Sodium 250 / 250 Chloride 250 ML @ 250 mls/hr IVPB ONCE ONE Rx#:[id number] Output: Catheter 185 / 485 75 / 75 Other: Stool Size Moderate Stool Consistency formed Stool Color Brown Weight 65.4 kg Blood Glucose* 287 214 118 - General Appearance General appearance: well-developed, well-nourished EENT: ATNC, hearing intact, vision intact Neck: supple Respiratory: clear Cardiology: no edema, normal S1, normal S2 Gastrointestinal: normoactive bowel sounds, no tenderness, no guarding Integumentary: no rash, warm and dry Neurologic: alert and oriented x3 Musculoskeletal: no deformities, no erythema Psychiatric: mood/affect appropriate, cooperative Results - Lab Results 05/23/19 06:20 05/23/19 04:30 Most recent lab results 05/23/19 04:30 Calcium 7.7 L Phosphorus 4.5 Magnesium 2.2 Consult Discharge Plan - Plan Referrals: Trav Vivar DO [Primary Care Provider] -
[2019-05-23 11:56] LABS: Protein/Creatinine Ratio,Urine 2.06 mg/mg (0.00-0.20); Sodium, Urine 74.7 mEq/L
[2019-05-23] MEDS: cefTRIAXone 1,000 MG in Water for inj. (sterile) 10 ML IVP SCH (12:10)
[2019-05-23 13:08] LABS: Uric Acid 7.4 mg/dL (2.3-7.6)
--- NOTE | 2019-05-23 16:38 | Orthopedics Progress Note ---
Date of Encounter: 05/23/19 Time of Encounter: 12:45 - Assessment and Plan (1) Right femoral fracture Status: Acute Qualifiers: Encounter type: initial encounter Femur location: unspecified portion of femur Fracture type: closed Fracture morphology: unspecified fracture m orphology Qualified Code(s): S72.91XA - Unspecified fracture of right femur, initial encounter for closed fracture (2) Vertebral compression fracture Status: Acute Qualifiers: Encounter type: initial encounter Fracture of vertebra location: thoracic Thoracic vertebra fracture level: unspecified thoracic vertebra Qualified Code(s): S22.000A - Wedge compression fracture of unspecified thoracic vertebra, initial encounter for closed fracture (3) Fall Status: Acute Qualifiers: Encounter type: initial encounter Qualified Code(s): W19.XXXA - Unspecified fall, initial encounter Subjective Principal diagnosis: right femur fracture Interval history: Patient seen on [facility] Improved stability and transferred to step down from ICU. Patient appears improved. Case reviewed with Dr. Quintero and Dr. Ibarra - surgical intervention to the right hip postponed for improved medical stabilization at this time until Monday, 05/24. Patient seen at bedside. Alert and oriented to person, place. Not oriented to time. Patient's daughter at bedside. Patient states pain adequately controlled No ecchymosis or gross deformity noted to the right hip Mild calf and hammer tenderness to RLE - no erythema or warmth noted. No tenderness, erythema or warmth noted to LLE. Motion intact to LLE. Ankle dorsiflexion intact RLE. Neurovascularly itnact to b/l LE Sensation intact b/l LE. NPO midnight 05/24 Surgery recommended: right hip hemiarthroplasty 05/[address] Ibarra Will review consent with patient and spouse, who per patient, is her POA and next of kin. No hip motion Nonweightbearing to RLE Topical analgesics as needed to back - patient denies any concern at present re; pain in back which might be attributable to compression fractures Please reach out with any questions or concerns re: patient's orthopedic health. Objective Vital signs: Vital Signs Temp Pulse Resp BP Pulse Ox 05/23/19 16:27 98.2 F 119 16 163/76 93 05/23/19 12:15 97.5 F L 111 18 162/93 95 05/23/19 11:15 109 21 154/93 93 05/23/19 09:30 117 22 137/76 94 05/23/19 08:30 107 21 161/97 94 05/23/19 08:03 97.1 F L 05/23/19 06:00 104 18 166/90 94 05/23/19 05:00 93 12 128/80 95 05/23/19 04:00 94 11 129/77 95 05/23/19 03:42 90 05/23/19 03:00 87 14 111/75 94 05/23/19 02:00 94 12 135/98 93 05/23/19 01:00 89 21 160/73 90 05/23/19 00:00 90 20 135/89 91 05/22/19 23:58 96.8 F L 05/22/19 23:00 90 20 139/92 91 05/22/19 22:00 82 15 133/77 93 05/22/19 21:00 82 20 120/90 92 05/22/19 20:00 85 16 116/73 91 05/22/19 19:52 97.1 F L 05/22/19 19:00 84 16 118/69 92 05/22/19 18:00 82 18 118/99 94 05/22/19 17:00 87 18 92/63 93 Intake and Output 05/23/19 05/23/19 05/23/19 07:59 15:59 23:59 Intake Total 1450 / 1550 100 / 1550 Output Total 75 / 75 Balance 1450 / 1475 25 / 1475 Intake: IV Fluids 1450 / 1550 100 / 1550 0.9 % Sodium Chloride 1,000 ML 1000 / 1000 @ 125 mls/hr IVC .Q8H [facility] Rx#: [id number] Calcium Gluconate 1gm/50mL 1 gm 100 / 100 In 50 ml @ 50 mls/hr IVPB Q6HR PRN Rx#:[id number] Zosyn 3.375 GM In 0.9 % Sodium 100 / 200 100 / 200 Chloride (Mini-Bag +) 100 ML @ 25 mls/hr IVPB Q12HR [facility] Rx#: [id number] Vancocin 750 MG In 0.9 % Sodium 250 / 250 Chloride 250 ML @ 250 mls/hr IVPB ONCE ONE Rx#:[id number] Output: Catheter 75 / 75 Other: Blood Glucose* 214 118 114 - Labs CBC & BMP: 07/26/19 19:01 05/24/19 19:01 Labs: Abnormal lab results WBC 16.0 K/mcL (4.3-11.1) H 05/23/19 06:20 RBC 3.43 M/mcL (3.82-4.97) L 05/23/19 06:20 Hgb 10.0 g/dL (11.5-15.4) L 05/23/19 06:20 Hct 31.5 % (35.3-44.9) L 05/23/19 06:20 MCHC 30.2 g/dL (31.6-35.5) L 05/22/19 03:40 Neutrophils # 12.7 K/mcL (1.6-8.9) H 05/23/19 06:20 Monocytes # 1.4 K/mcL (0.0-1.3) H 05/23/19 06:20 Sodium 134 mEq/L (136-145) L 05/23/19 04:30 Chloride 94 mEq/L (98-107) L 05/21/19 13:20 Carbon Dioxide 18 mEq/L (23-29) L 05/23/19 04:30 BUN 37 mg/dL (8-23) H 05/23/19 04:30 Creatinine 2.48 mg/dL (0.60-1.20) H 05/23/19 04:30 Est GFR ( Amer) 23 (> 60) L 05/23/19 04:30 Est GFR (Non-Af Amer) 19 (> 60) L 05/23/19 04:30 Glucose 214 mg/dL (70-105) H 05/23/19 04:30 POC Glucose 287 mg/dL (70-99) H 05/22/19 23:46 Hemoglobin A1c 7.8 % (-5.6) H 05/22/19 03:40 Lactic Acid 2.8 mmol/L (0.5-2.2) H 05/23/19 04:30 Calcium 7.7 mg/dL (8.6-10.3) L 05/23/19 04:30 Venous Ioniz Calcium 1.08 mmol/L (1.15-1.35) L 05/23/19 04:47 Magnesium 1.5 mg/dL (1.6-2.6) L 05/22/19 03:40 Total Bilirubin 0.2 mg/dL (0.3-1.0) L 05/22/19 02:00 Serum Total Protein 5.8 g/dL (6.4-8.9) L 05/22/19 02:00 Albumin 3.3 g/dL (3.5-5.7) L 05/22/19 02:00 Beta-Hydroxybutyric Acd 0.39 mmol/L (0.02-0.27) H 05/21/19 13:21 Urine Clarity Turbid (Clear) A 05/21/19 14:30 Ur Specific [place] > 1.030 (1.010-1.025) H 05/21/19 14:30 Urine Protein 30 mg/dL (Neg-Trace) H 05/21/19 14:30 Urine Glucose (UA) 250 mg/dL (Normal) H 05/21/19 14:30 Urine Blood Large (Negative) H 05/21/19 14:30 Ur Leukocyte Esterase Large (Negative) H 05/21/19 14:30 Urine Microscopic RBC 15-30 per hpf (0-3) H 05/21/19 14:30 Urine Microscopic WBC TNTC per hpf (0-3) H 05/21/19 14:30 Ur Squamous Epith Cells Many per lpf (None-Few) H 05/21/19 14:30 Ur Culture Indicated? YES (NO) A 05/21/19 14:30 Protein/Creatinin Ratio 2.06 mg/mg (0.00-0.20) H 05/23/19 11:30 Urine Total Protein 101 mg/dL (1-14) H 05/23/19 11:30 Consult Discharge Plan - Plan Referrals: Trav Vivar DO [Primary Care Provider] -
--- NOTE | 2019-05-23 17:26 | Anesthesia Evaluation PreOp ---
Date of Encounter: 05/23/19 Time of Encounter: 17:24 - Past History Planned Operation: Right Mendel hip arthroplasty Cardiac History: HTN, Hyperlipidemia, Other (Transferred to ICU for hemodynamic instability and lactic acidosis now back on the floor lactic acid 2.8 today) Pulmonary History: Denies Any Significant HX TALENT AGENT History: Seizures, CVA, TIA, Other (multiple vertebral fractures) Other Medical History: Renal (TONY, UTI), Other (sepsis) Anesthesia History: No Prior Anesthetic Complications, Past Anesthesia Alcohol Use: none Drug use: none Medications and Allergies Aspirin Enteric Coated [Aspirin EC] 81 mg PO DAILY 10/04/15 [History] Atorvastatin [Lipitor] 20 mg PO DAILY 10/04/15 [History] Escitalopram [Lexapro] 20 mg PO DAILY 10/04/15 [History] Insulin Glargine [Lantus] 18 unit SQ HS 10/04/15 [History] Metformin HCl [Glucophage] 1,000 mg PO BIDWM 10/04/15 [History] Cyanocobalamin/Folic AC/Vit B6 [Folbic Tablet] 1 each PO DAILY 12/25/18 [History] LevETIRAcetam [Keppra] 500 mg PO BID 12/25/18 [History] Melatonin 5 mg PO HS 12/25/18 [History] Rivastigmine Tartrate (oral) [Exelon] 1.5 mg PO BID 12/25/18 [History] Triamterene/Hydrochlorothiazid [Triamterene-Hctz 75-50 mg Tab] 1 tab PO DAILY 12/25/18 [History] Omeprazole [PriLOSEC] 20 mg PO DAILY 03/21/19 [History] Ferrous Sulfate 650 mg PO DAILY 05/21/19 [History] Cefdinir [Omnicef] 300 mg PO BID 05/22/19 [History] Insulin ASPART [NovoLOG] 5 - 10 unit SQ ACHS PRN 05/22/19 [History] Lisinopril [Zestril] 20 mg PO DAILY 05/22/19 [History] Magnesium Oxide [Magnesium] 800 mg PO HS 05/22/19 [History] Magnesium Oxide [Mgo] 400 mg PO QAM 05/22/19 [History] Metoprolol Tartrate 50 mg PO BID 05/22/19 [History] Allergy/AdvReac Type Severity Reaction Status Date / Time Erythromycin Base Allergy Hives Verified 12/29/15 17:40 NSAIDS (Non-Steroidal Allergy See Verified 10/04/15 13:39 Anti-Inflamma Comments shellfish derived Allergy See Verified 10/04/15 13:39 Comments Sulfa (Sulfonamide Allergy See Verified 12/29/15 17:40 Antibiotics) Comments - Meds/Allergy Pre-op Review Medications Reviewed: Yes Allergies Reviewed: Yes Beta Blockers on Current Med List: No Anesthesia Results - Labs 05/23/19 06:20 05/23/19 04:30 - Imaging EKG: report reviewed ( Interpretive Statements Sinus rhythm Prolonged QT interval Electronically Signed On 05-22-2019 15:30:29 EDT by Kymberly Israel) Additional studies: ECHO 10/2015 Impressions: LVEF 60%. Normal left ventricular structure and function. Normal right ventricular structure and function. No evidence of PFO with agitated saline contrast. This was a limited study. See prior report dated 10/05/2015 for further details. Anesthesia Exam Vital Signs/O2 Sat, Most Current Temp Pulse Resp BP Pulse Ox 98.2 F 119 16 163/76 93 05/23/19 16:27 05/23/19 16:27 05/23/19 16:27 05/23/19 16:27 05/23/19 16:27 - HEENT Pupil (Motor): Pupils equal, EOMI Mallampati: II Oral Opening: Greater than 3 - TALENT AGENT LOC: Oriented - Cardiac Rhythm: Regular - Pulmonary Respiratory Effort: Symmetrical Anesthesia Assess/Plan ASA Score: 4 Level of consciousness: Cooperative Anesthetic Plan: General Monitoring Plan: Standard Monitors Recovery Plan: PACU
[2019-05-23] MEDS ORDERED: Piperacillin/Tazobactam 3.375 GM in 0.9 % Sodium Chloride Mini Bag 100 ML IVPB SCH (18:00)
[2019-05-23] MEDS ORDERED: *HR* Metoprolol 5 MG/5 ML VIAL IVP ONE ×2 (20:30→23:45)
[2019-05-23] MEDS ORDERED: Melatonin 3 MG TABLET PO SCH (21:00)
[2019-05-23] MEDS ORDERED: Aminoglycoside Consult 1 EACH MC ONE (22:12)
[2019-05-24] MEDS: Insulin LISPRO 300 UNITS/3 ML VIAL SQ SCH ×4 (03:58→12:43)
[2019-05-24] MEDS: *HR* Heparin 5,000 UNIT/ML VIAL SQ SCH (05:06)
[2019-05-24] MEDS: *HR* OxyCODONE Immed Rel 5 MG TABLET PO PRN (05:06)
[2019-05-24] MEDS: 0.9 % Sodium Chloride 1,000 ML IVC SCH ×3 (05:06→10:06)
[2019-05-24 06:11] LABS: Basophils % 0.1 %; Eosinophils # 0.2 K/mcL (0.0-0.6); Eosinophils % 1.4 %; Hematocrit 30.3 % (35.3-44.9); Hemoglobin 9.9 g/dL (11.5-15.4); Immature Granulocytes % 0.7 % (0-4); Lymphocytes # 1.1 K/mcL (0.6-4.6); Lymphocytes % 10.6 %; Mean Corpuscular HGB Conc 32.7 g/dL (31.6-35.5); Mean Corpuscular Hemoglobin 29.6 pg (28.0-33.3); Mean Corpuscular Volume 90.4 fL (83.0-100.0); Mean Platelet Volume 10.4 fL (9.4-12.4); Monocytes # 0.7 K/mcL (0.0-1.3); Monocytes % 6.6 %; Neutrophils # 8.4 K/mcL (1.6-8.9); Platelet Count 150 K/mcL (140-400); Red Blood Count 3.35 M/mcL (3.82-4.97); Red Cell Distribution Width 14.4 % (11.5-14.5); Segmented Neutrophils % 80.6 %; White Blood Count 10.4 K/mcL (4.3-11.1)
[2019-05-24 06:33] LABS: Calcium 8.3 mg/dL (8.6-10.3); Magnesium 1.9 mg/dL (1.6-2.6); Phosphorous 3.5 mg/dL (2.7-4.5); Potassium 4.4 mEq/L (3.5-5.1)
[2019-05-24] MEDS ORDERED: Aspirin Enteric Coated 81 MG Tablet PO SCH (09:00)
[2019-05-24] MEDS ORDERED: Rivastigmine Tartrate (oral) 1.5 MG CAPSULE PO SCH (09:00)
[2019-05-24] MEDS: cefTRIAXone 1,000 MG in Water for inj. (sterile) 10 ML IVP SCH (09:09)
[2019-05-24] MEDS: levETIRAcetam 250 MG TABLET PO SCH (09:10)
--- NOTE | 2019-05-24 09:19 | Internal Med Progress Note ---
Hospitalist Progress Note - Encounter Date of Encounter: 05/24/19 Time of Encounter: 09:15 - Subjective Interval History: Ms. Ellsworth is a 69 year old female with history of CVA, dementia, diabetes, hyperlipidemia, hypertension, seizures, GERD who presented to the ED with complaint of right hip pain, confusion, and recent diagnosis of UTI. Patient was admitted with septic shock suspected secondary to UTI, which has now resolved. Urine culture positive for Serratia, currently on Rocephin. Ortho was consulted for right femoral fracture and plans to do surgical repair today. Multiple compression fractures, and gallbladder wall thickening on CT as well. No acute events overnight. Nursing reported this AM that patient BP and HR were elevated, however patient asymptomatic. Patient is somnolent and lying comfortably in bed without complaint. Denies fever, chills, CP, SOB, N/V/D, or urinary symptoms. - Exam Vitals: Temp Pulse Resp BP Pulse Ox 98.5 F 111 20 171/114 92 05/24/19 06:47 05/24/19 06:47 05/24/19 06:47 05/24/19 06:47 05/24/19 06:47 Exam: Gen: Vitals noted. No acute distress. Somnolent and lying comfortably in bed. Eyes: anicteric sclerae, moist conjunctivae HENT: Atraumatic, normocephalic; oral mucosa dry Neck: Trachea midline; supple Cardiac: RRR, no murmur, normal S1/S2 Pulmonary: CTA bilaterally, no wheezes, rales or rhonchi, equal chest expansion Abdomen: soft, nontender, no guarding or rigidity. Bowel sounds normal. Extremities: No pain on palpation of the right lateral thigh. Minimal BLE edema, nontender calf, no cyanosis or clubbing Skin: Warm, dry, intact; no rashes or ulcers Neuro: No focal deficits Psych: Appropriate mood and behavior. A&Ox2 self, - Assessment and Plan (1) Septic shock Current Visit: Yes Status: Resolved Assessment and Plan: Suspected secondary to UTI, now resolved Lactic acid peaked at 7.9, repeat today 1.0 Patient transferred out of ICU to the floor yesterday (2) UTI (urinary tract infection) Current Visit: Yes Status: Acute Assessment and Plan: Patient denies urinary symptoms Urine cultures positive for serratia Continue Rocephin (3) Right femoral fracture Current Visit: Yes Status: Acute Assessment and Plan: Right femoral fx on CT Ortho consulted, planning for surgical repair today Continue supportive care and pain management (4) TONY (acute kidney injury) Current Visit: Yes Status: Acute Assessment and Plan: Renal function improving 950 out yesterday Nephro following Continue IVFs Repeat BMP tomorrow Strict I/Os, daily weights Avoid nephrotoxic agents, renally dose meds (5) Metabolic acidosis Current Visit: Yes Status: Resolved (6) Vertebral compression fracture Current Visit: Yes Status: Acute Assessment and Plan: Multiple compression fractures on CT, unknown to patient/family Continue supportive care and pain management (7) Osteoporosis Current Visit: Yes Status: Acute Assessment and Plan: Denies known history, has never had DEXA Suspected given compression fractures and femoral fracture Calcium low Phosphorus wnl PTH high at 237 Vitamin D low at 9.0 Will supplement vitamin D and Calcium Patient will need outpatient PCP follow up and possible DEXA to evaluate severity (8) T2DM (type 2 diabetes mellitus) Current Visit: Yes Status: Acute Assessment and Plan: Glucose 110s-200s Continue SSI, Q4 accuchecks (9) Hypertension Current Visit: Yes Status: Chronic Assessment and Plan: Initially hypotensive dt septic shock, then hypertensive this AM with tachycardia likely rebound from holding Metoprolol Resumed Metoprolol Holding home Lisinopril for now dt surgery today Will continue to monitor (10) CVA (cerebral vascular accident) Current Visit: Yes Status: Chronic Assessment and Plan: Continue ASA and statin (11) Seizure disorder Current Visit: Yes Status: Chronic Assessment and Plan: Stable Continue Keprra DVT Prophylaxis: SQ Heparin - Time Spent with Patient Total time spent is greater than 50% in coordination of care (as documented) at patient's floor/unit and/or counseling patient: Internal Medicine: Result - Labs CBC & Chem 7: 05/24/19 04:00 05/24/19 04:00 Labs: Short CBC 05/24/19 Range/Units 04:00 WBC 10.4 (4.3-11.1) K/mcL Hgb 9.9 L (11.5-15.4) g/dL Hct 30.3 L (35.3-44.9) % Plt Count 150 (140-400) K/mcL Neutrophils # 8.4 (1.6-8.9) K/mcL BMP 05/23/19 05/24/19 04:30 04:00 Sodium 134 L 135 L Potassium 4.6 4.4 Chloride 106 105 Carbon Dioxide 18 L 16 L BUN 37 H 30 H Creatinine 2.48 H 1.87 H Glucose 214 H 198 H Calcium 7.7 L 8.3 L - ABG Interpretation ABG results: PT/INR, D-dimer PT 11.1 Seconds (9.4-12.1) 05/22/19 03:40 - Impressions Impressions Chest/Abdomen/Pelvis CTA 05/21/19 13:11 IMPRESSION: Mild periportal edema and diffuse gallbladder wall thickening. Findings are nonspecific and may be related to passive hepatic congestion, overhydration, or chronic liver disease. No evidence of hepatic trauma. No active extravasation of contrast. No acute traumatic abnormality of the chest or pelvis. Age-indeterminate T5 compression fracture with anterior wedging and mild loss of vertebral body height. No retropulsion of fracture fragments. Chronic T12 through L5 compression fractures. D/ / 05/21/2019 14:47:50 Marysol Mario MD / laquita Interpreting Provider: Marysol Mario MD Retroperitoneum Ultrasound 05/23/19 20:15 IMPRESSION: Increased echogenicity of the renal parenchyma bilaterally, nonspecific finding suggesting medical renal disease. D/ / Corinne Rodriguez Cha, MD / Corinne Rodriguez Cha, MD Interpreting Provider: Corinne Rodriguez Cha, MD Consult Discharge Plan - Plan Referrals: Trav Vivar DO [Primary Care Provider] - (2) UTI (urinary tract infection) Qualifiers: Urinary tract infection type: site unspecified Hematuria presence: without hematuria Qualified Code(s): N39.0 - Urinary tract infection, site not specified (3) Right femoral fracture Qualifiers: Encounter type: initial encounter Femur location: unspecified portion of femur Fracture type: closed Fracture morphology: unspecified fracture morphology Qualified Code(s): S72.91XA - Unspecified fracture of right femur, initial encounter for closed fracture (6) Vertebral compression fracture Qualifiers: Encounter type: initial encounter Fracture of vertebra location: thoracic Thoracic vertebra fracture level: unspecified thoracic vertebra Qualified Code(s): S22.000A - Wedge compression fracture of unspecified thoracic vertebra, initial encounter for closed fracture (8) T2DM (type 2 diabetes mellitus) Qualifiers: Diabetes mellitus terminal gauger insulin use: with correction use Diabetes mellitus complication status: with ketoacidosis Diabetes mellitus complication detail: w ithout coma Qualified Code(s): E11.10 - Type 2 diabetes mellitus with keto acidosis without coma; Z79.4 - halfway (current) use of insulin (9) Hypertension Qualifiers: Hypertension type: essential hypertension Qualified Code(s): I10 - Essential (primary) hypertension (10) CVA (cerebral vascular accident) Qualifiers: CVA mechanism: unspecified Qualified Code(s): I63.9 - Cerebral infarction, unspecified
[2019-05-24] MEDS ORDERED: cefTRIAXone 1,000 MG in Water for inj. (sterile) 10 ML IVP ONE (10:00)
--- NOTE | 2019-05-24 12:08 | Orthopedics Progress Note ---
Date of Encounter: 05/24/19 Time of Encounter: 09:00 - Assessment and Plan (1) Right femoral fracture Current Visit: Yes Status: Acute Qualifiers: Encounter type: initial encounter Femur location: unspecified portion of femur Fracture type: closed Fracture morphology: unspecified fracture morphology Qualified Code(s): S72.91XA - Unspecified fracture of right femur, initial encounter for closed fracture (2) Vertebral compression fracture Current Visit: Yes Status: Acute Qualifiers: Encounter type: initial encounter Fracture of vertebra location: thoracic Thoracic vertebra fracture level: unspecified thoracic vertebra Qualified Code(s): S22.000A - Wedge compression fracture of unspecified thoracic vertebra, initial encounter for closed fracture (3) Fall Current Visit: Yes Status: Acute Qualifiers: Encounter type: initial encounter Qualified Code(s): W19.XXXA - Unspecified fall, initial encounter Subjective Principal diagnosis: right femur fracture Interval history: Patient seen on 3NE - sleeping. Easily aroused. Patient continues oriented to person, place only. No family at bedside. Appears hemodynamically stable at present - much improved from initial admission. Patient admits to pain in right hip and b/l knees. Patient seen at bedside. Alert and oriented to person, place. Not oriented to time. Patient states pain adequately controlled No ecchymosis or gross deformity noted to the right hip Mild calf and hammer tenderness to RLE - no erythema or warmth noted. No tenderness, erythema or warmth noted to LLE. Motion intact to LLE. Ankle dorsiflexion intact RLE. Neurovascularly itnact to b/l LE Sensation intact b/l LE. NPO midnight 05/24 Surgery recommended: right hip hemiarthroplasty TODAY 05/[address] Ibarra Consent obtained 05/23 from patient's spouse/POA after throrough discussion re: surgery risks and benefits to patient's spouse's satisfaction. No hip motion Nonweightbearing to RLE Patient's course reviewed with Dr. Ibarra. Topical analgesics as needed to back - patient denies any concern at present re; pain in back which might be attributable to compression fractures Please reach out with any questions or concerns re: patient's orthopedic health. Objective Vital signs: Vital Signs Temp Pulse Resp BP Pulse Ox 05/24/19 11:25 97.6 F 90 16 142/87 93 05/24/19 06:47 98.5 F 111 20 171/114 92 05/24/19 04:10 97.7 F 112 18 158/107 94 05/23/19 23:59 97.7 F 104 18 134/93 93 05/23/19 19:21 98.3 F 119 18 157/97 95 05/23/19 16:27 98.2 F 119 16 163/76 93 05/23/19 12:15 97.5 F L 111 18 162/93 95 Intake and Output 05/23/19 05/24/19 05/24/19 23:59 07:59 15:59 Intake Total 1830 / 3380 0 / 1010 1010 / 1010 Output Total 875 / 950 325 / 325 Balance 955 / 2430 -325 / 685 1010 / 685 Intake: IV Fluids 1010 / 2560 1010 / 1010 0.9 % Sodium Chloride 1,000 ML 1000 / 1000 1000 / 1000 @ 125 mls/hr IVC .Q8H ERICK Rx#: [id number] Rocephin 1,000 MG In Water for inj. (sterile) 10 ML @ 600 mls/ hr IVP DAILY ERICK Rx#:[id number] Oral 820 / 820 0 / 0 Output: Catheter 875 / 950 325 / 325 Other: Meal Dinner Percent of Meal Consumed 25% Weight 67.4 kg Blood Glucose* 170 222 165 Patient Weight 05/24/19 23:59 Weight 67.4 kg - Labs CBC & BMP: 05/24/19 04:00 05/24/19 04:00 Labs: Abnormal lab results WBC 16.0 K/mcL (4.3-11.1) H 05/23/19 06:20 RBC 3.35 M/mcL (3.82-4.97) L 05/24/19 04:00 Hgb 9.9 g/dL (11.5-15.4) L 05/24/19 04:00 Hct 30.3 % (35.3-44.9) L 05/24/19 04:00 MCHC 30.2 g/dL (31.6-35.5) L 05/22/19 03:40 Neutrophils # 12.7 K/mcL (1.6-8.9) H 05/23/19 06:20 Monocytes # 1.4 K/mcL (0.0-1.3) H 05/23/19 06:20 Sodium 135 mEq/L (136-145) L 05/24/19 04:00 Chloride 94 mEq/L (98-107) L 05/21/19 13:20 Carbon Dioxide 16 mEq/L (23-29) L 05/24/19 04:00 BUN 30 mg/dL (8-23) H 05/24/19 04:00 Creatinine 1.87 mg/dL (0.60-1.20) H 05/24/19 04:00 Est GFR ( Amer) 32 (> 60) L 05/24/19 04:00 Est GFR (Non-Af Amer) 27 (> 60) L 05/24/19 04:00 Glucose 198 mg/dL (70-105) H 05/24/19 04:00 POC Glucose 197 mg/dL (70-99) H 05/24/19 04:08 Hemoglobin A1c 7.8 % (-5.6) H 05/22/19 03:40 Lactic Acid 2.8 mmol/L (0.5-2.2) H 05/23/19 04:30 Calcium 8.3 mg/dL (8.6-10.3) L 05/24/19 04:00 Venous Ioniz Calcium 1.08 mmol/L (1.15-1.35) L 05/23/19 04:47 Magnesium 1.5 mg/dL (1.6-2.6) L 05/22/19 03:40 Total Bilirubin 0.2 mg/dL (0.3-1.0) L 05/22/19 02:00 Serum Total Protein 5.8 g/dL (6.4-8.9) L 05/22/19 02:00 Albumin 3.3 g/dL (3.5-5.7) L 05/22/19 02:00 Beta-Hydroxybutyric Acd 0.39 mmol/L (0.02-0.27) H 05/21/19 13:21 Urine Clarity Turbid (Clear) A 05/21/19 14:30 Ur Specific [place] > 1.030 (1.010-1.025) H 05/21/19 14:30 Urine Protein 30 mg/dL (Neg-Trace) H 05/21/19 14:30 Urine Glucose (UA) 250 mg/dL (Normal) H 05/21/19 14:30 Urine Blood Large (Negative) H 05/21/19 14:30 Ur Leukocyte Esterase Large (Negative) H 05/21/19 14:30 Urine Microscopic RBC 15-30 per hpf (0-3) H 05/21/19 14:30 Urine Microscopic WBC TNTC per hpf (0-3) H 05/21/19 14:30 Ur Squamous Epith Cells Many per lpf (None-Few) H 05/21/19 14:30 Ur Culture Indicated? YES (NO) A 05/21/19 14:30 Protein/Creatinin Ratio 2.06 mg/mg (0.00-0.20) H 05/23/19 11:30 Urine Total Protein 101 mg/dL (1-14) H 05/23/19 11:30 Consult Discharge Plan - Plan Referrals: Trav Vivar DO [Primary Care Provider] -
[2019-05-24] MEDS ORDERED: *HR* Propofol 200 MG/20 ML VIAL IVP ONE (14:31)
[2019-05-24] MEDS ORDERED: *HR* Midazolam HCl 2 MG/2 ML VIAL ONE (14:31)
[2019-05-24] MEDS ORDERED: *HR* FentaNYL (PF) 100 MCG/2 ML VIAL ONE (14:31)
[2019-05-24] MEDS ORDERED: Ethanol\\Acetic Acid\\Na Ace\\Ben 1,000 ML IRRIG.SOLN IR ONE ×2 (16:23→18:15)
[2019-05-24] MEDS ORDERED: Lidocaine HCL 4 ML Topical Solution (Laryng-O-Jet Kit Sterile Pak) TP ONE (16:24)
[2019-05-24] MEDS ORDERED: ceFAZolin 2,000 MG in Water for inj. (sterile) 20 ML IVP ONE (16:24)
[2019-05-24 16:26] VITALS: BP 159/114
[2019-05-24] MEDS ORDERED: *HR* Rocuronium Bromide 50 MG/5 ML VIAL ONE (16:27)
[2019-05-24] MEDS ORDERED: Albuterol 2.5 MG/3 ML NEBULIZER IH ONE (16:28)
[2019-05-24] MEDS ORDERED: Ondansetron 4 MG/2 ML VIAL IVP ONE (16:28)
[2019-05-24] MEDS ORDERED: Acetaminophen IV 1,000 MG/100 ML INFUS..BTL IVPB ONE (16:28)
[2019-05-24] MEDS ORDERED: *HR* HYDROmorphone (PF) 1 MG/ML SYRINGE IVP PRN (16:28)
[2019-05-24] MEDS ORDERED: Ondansetron 4 MG/2 ML VIAL ONE (16:33)
[2019-05-24] MEDS ORDERED: Dexamethasone 4 MG/ML VIAL ONE (16:33)
[2019-05-24] MEDS ORDERED: *HR* PHENYLEPHRINE 1,000 MCG/10 ML SYRINGE IVP ONE (16:40)
[2019-05-24] MEDS ORDERED: *HR* Vasopressin 20 UNIT/ML VIAL ONE (16:59)
[2019-05-24] MEDS ORDERED: Heparin 1,000 UNITS/500 mL 500 ML ONE ×3 (17:34→19:19)
[2019-05-24] MEDS ORDERED: EPINEPHrine 1 MG/ML VIAL ONE (17:38)
[2019-05-24] MEDS ORDERED: EPINEPHrine 1 MG in D5% in Water 250 ML IVC SCH (17:45)
[2019-05-24] MEDS ORDERED: *HR* Heparin 5,000 UNIT/ML VIAL ONE (17:48)
[2019-05-24 18:01] LABS: Hematocrit 29.2 % (35.3-44.9); Hemoglobin 9.1 g/dL (11.5-15.4); Mean Corpuscular HGB Conc 31.2 g/dL (31.6-35.5); Mean Corpuscular Hemoglobin 29.4 pg (28.0-33.3); Mean Corpuscular Volume 94.5 fL (83.0-100.0); Mean Platelet Volume 10.7 fL (9.4-12.4); Nucleated Red Blood Cells 0.7 /100 WBC (0); Red Blood Count 3.09 M/mcL (3.82-4.97); Red Cell Distribution Width 14.6 % (11.5-14.5)
[2019-05-24 18:02] LABS: White Blood Count 17.6 K/mcL (4.3-11.1)
[2019-05-24] MEDS ORDERED: Albumin Human 5% 50.0 GM/1,000 ML VIAL ONE (18:02)
[2019-05-24 18:03] LABS: ABG Base Excess -18 mEq/L (-2 to 3); ABG HCO3 12 mEq/L (21-27); ABG Oxygen Saturation 99 % (95-98); ABG PCO2 49 mmHg (35-45); ABG PH 7.01 pH Units (7.32-7.45); ABG PO2 187 mmHg (85-104); ABG TCO2 14 mEq/L (20-26)
[2019-05-24 18:03] LABS: Platelet Count 88 K/mcL (140-400)
[2019-05-24 18:20] LABS: Albumin 2.5 g/dL (3.5-5.7); Albumin/Globulin Ratio 1.1 (1.1-2.2); Bilirubin,Total 0.2 mg/dL (0.3-1.0); Calcium 7.5 mg/dL (8.6-10.3); Globulin 2.2 g/dL (2.4-3.5); Potassium 3.8 mEq/L (3.5-5.1); Total Protein 4.7 g/dL (6.4-8.9)
[2019-05-24 18:20] LABS: ABG Base Excess -10 mEq/L (-2 to 3); ABG HCO3 19 mEq/L (21-27); ABG Ionized Calcium 1.61 mmol/L (1.15-1.35); ABG Oxygen Saturation 100 % (95-98); ABG PCO2 53 mmHg (35-45); ABG PH 7.15 pH Units (7.32-7.45); ABG PO2 252 mmHg (85-104); ABG TCO2 20 mEq/L (20-26)
--- NOTE | 2019-05-24 18:29 | Nephrology Progress Note ---
Date of Encounter: 05/24/19 - Assessment and Plan (1) Closed right hip fracture Current Visit: Yes Status: Acute Qualifiers: Encounter type: initial encounter Qualified Code(s): S72.001A - Fracture of unspecified part of neck of right femur, initial encounter for closed fracture (2) TONY (acute kidney injury) Current Visit: Yes Status: Acute (3) Dehydration Current Visit: Yes Status: Acute (4) Fall Current Visit: Yes Status: Acute Qualifiers: Encounter type: initial encounter Qualified Code(s): W19.XXXA - Unspecified fall, initial encounter Subjective Principal diagnosis: right femur fracture Objective - Vital Signs Vital signs: Vital Signs Temp Pulse Resp BP Pulse Ox 05/24/19 16:25 90 16 159/114 94 05/24/19 15:44 98.2 F 78 18 171/98 93 05/24/19 11:25 97.6 F 90 16 142/87 93 05/24/19 06:47 98.5 F 111 20 171/114 92 05/24/19 04:10 97.7 F 112 18 158/107 94 05/23/19 23:59 97.7 F 104 18 134/93 93 05/23/19 19:21 98.3 F 119 18 157/97 95 Intake and Output 05/24/19 05/24/19 05/24/19 07:59 15:59 23:59 Intake Total 0 / 1010 1010 / 1010 Output Total 325 / 1325 900 / 1325 100 / 1325 Balance -325 / -315 110 / -315 -100 / -315 Intake: IV Fluids 1010 / 1010 0.9 % Sodium Chloride 1,000 ML 1000 / 1000 @ 125 mls/hr IVC .Q8H ERICK Rx#: [id number] Rocephin 1,000 MG In Water for inj. (sterile) 10 ML @ 600 mls/ hr IVP DAILY ERICK Rx#:[id number] Oral 0 / 0 Output: Estimated Blood Loss 100 / 100 Catheter 325 / 1225 900 / 1225 Other: Weight 67.4 kg Blood Glucose* 222 165 Patient Weight 05/24/19 23:59 Weight 67.4 kg - Lab 05/24/19 17:50 05/24/19 17:50 Most recent lab results 05/24/19 05/24/19 05/24/19 04:00 17:50 17:57 ABG pH 7.01 L* ABG pCO2 49 H ABG pO2 187 H ABG HCO3 12 L ABG O2 Saturation 99 H Calcium 8.3 L 7.5 L Phosphorus 3.5 Magnesium 1.9 05/24/19 18:13 ABG pH 7.15 L* D ABG pCO2 53 H ABG pO2 252 H D ABG HCO3 19 L ABG O2 Saturation 100 H Calcium Phosphorus Magnesium Consult Discharge Plan - Plan Referrals: Trav Vivar DO [Primary Care Provider] -
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
[2019-05-24 18:54] LABS: Eosinophils # 0.2 K/mcL (0.0-0.6); Lymphocytes # 7.9 K/mcL (0.6-4.6); Monocytes # 0.7 K/mcL (0.0-1.3); Neutrophils # 8.1 K/mcL (1.6-8.9); Platelet Estimate Decreased (Normal); Polychromasia 1+ (Not Present); Reactive Lymphocytes Present (Not Present); Smudge Cells Present (Not Present)
[2019-05-24 18:55] LABS: Anisocytosis 1+ (Not Present)
[2019-05-24 19:18] LABS: Mean Corpuscular HGB Conc 32.9 g/dL (31.6-35.5); Mean Corpuscular Hemoglobin 30.4 pg (28.0-33.3); Mean Corpuscular Volume 92.4 fL (83.0-100.0); Mean Platelet Volume 10.9 fL (9.4-12.4); Monocytes # 0.6 K/mcL (0.0-1.3); Nucleated Red Blood Cells 0.5 /100 WBC (0); Red Blood Count 1.58 M/mcL (3.82-4.97); Red Cell Distribution Width 14.6 % (11.5-14.5)
[2019-05-24] MEDS ORDERED: 0.9 % Sodium Chloride 1,000 ML ONE (19:19)
[2019-05-24] MEDS ORDERED: *HR* Heparin 10,000 UNIT/10 ML VIAL ONE (19:19)
[2019-05-24] MEDS ORDERED: ISOVUE-370 200 ML INFUS..BTL ONE (19:19)
[2019-05-24] MEDS ORDERED: Nitroglycerin 1,000 MCG/10 ML VIAL IV ONE (19:19)
[2019-05-24 19:32] LABS: Troponin I 0.43 ng/mL (< 0.04)
--- NOTE | 2019-05-24 19:38 | Death Note ---
Pronouncement Note - Date and Time of Date of : 05/24/19 Time of : 19:24 - PCOD Preliminary cause of : Cardiac arrest - Summary Additional details: Patient experienced PEA arrest post-operatively with several brief periods of ROSC. Moved to ICU where she again lost pulse. Family notified and present. Decision eventually made to cease resuscitative efforts and allow . At 7:24p, pt without heart or lung sounds, no palpable pulse; pt pronounced . - Additional Data Confirmation of : no pulse, no respirations, no heart sounds Family: at bedside Attending/PCP notified?: Yes Attending physician: Denzel Maldonado Was code activated?: Yes
[2019-05-24 19:41] LABS: Calcium 7.1 mg/dL (8.6-10.3); Potassium 4.2 mEq/L (3.5-5.1)
--- NOTE | 2019-05-24 19:48 | Death Note ---
Discharge Sum: Summary - Date and Time Date of admission: 05/21/19 16:39 Date of : 05/24/19 Time of : 19:24 - Summary Details: Pt w hx early dementia, A-Fib, DM2, CVA, HLD, HTN, seizures, admitted 05/21 for confusion and a fall, found to have R hip fx, as well as UTI and anion gap acidosis. Found to have Lactate ~8 and patient hypotensive, consistent with septic shock. She was treated with abx and fluids, with hemodynamic improvement, and transferred out of ICU in the afternoon on 05/23. Due to improving clinical status, pt taken to OR by Ortho on 05/24 for operative repair of her hip fx, where during closing she lost pulse and was found to be in PEA arrest. ACLS initiated and performed intermittently for ~1.5h with several brief periods of ROSC. Unfortunately, pt unable to maintain perfusion despite maximal efforts, and family made decision to allow . Patient at 7:24p. - Additional Data Confirmation of as documented by pronouncing clinician: no pulse, no respirations, no heart sounds, pupils fixed and dilated Family: at bedside Attending/PCP notified?: Yes Attending physician: Denzel Maldonado Was code activated?: Yes Hospice patient?: No Discharge Sum: Diag - PCOD Probable Cause of : Cardiac arrest Discharge Sum: Prov - Provider Primary care physician: Trav Vivar DO Consults: 05/21/19 18:06 Consult to Nutrition [CONS] Routine Comment: Consulting Provider: NUTRITION Reason for Dietary Consult: MST Score Consult to Pastoral Services [CONS] Routine Comment: Consult to Medical Sonographer [CONS] Routine Reason for SW Consult: discharge planning 05/21/19 19:47 Consult to Pulmonology [CONS] Routine Consulting Provider: Pulm Crit Care & Sleep Meagan Reason for Consult: septic shock on levophed Call Completed: No 05/22/19 01:46 Consult to Surgery [CONS] Stat Consulting Provider: Acute Care Surgery Reason for Consult: eval for cholecytitis as septic source Call Completed: Yes 05/22/19 18:34 Consult to Nephrology [CONS] Routine Consulting Provider: [facility]/NIKO/LAWANDA Reason for Consult: worsening kidney function, oliguria, UTI Call Completed: No Pronouncing clinician: Dnezel Maldonado
[2019-05-24 19:49] LABS: Hemoglobin 4.8 g/dL (11.5-15.4)
[2019-05-24 19:50] LABS: Hematocrit 14.6 % (35.3-44.9); Platelet Count 64 K/mcL (140-400)
[2019-05-24 19:57] LABS: Anisocytosis 1+ (Not Present); Eosinophils # 0.4 K/mcL (0.0-0.6); Lymphocytes # 5.3 K/mcL (0.6-4.6); Neutrophils # 12.5 K/mcL (1.6-8.9); Platelet Estimate Decreased (Normal); Smudge Cells Present (Not Present)
--- NOTE | 2019-05-24 20:16 | Event Note ---
Date of Encounter: 05/24/19 Time of Encounter: 18:46 Agata Reyes called overhead for ICU7 6:46p. Upon arrival, Anesthesiology team and ICU RNs performing CPR/ACLS. Briefed that patient, during operative repair of R hip fx, experienced PEA arrest immediately following completion of procedure while still in OR, and that ACLS initiated for ~20 minutes with eventual ROSC, during which time emergent CVC and A-line were placed. Patient transferred immediately from OR to ICU, where shortly after arrival she again arrested for which code was called. Multiple rounds ACLS initiated, with several cycles epi administered, and each pulse check redemonstrating PEA without pulse. Stat labs showing mild worsening of metabolic acidosis and a lactate up to 6 post-arrest but otherwise unremarkable including Hb in the 9s. Patient therefore administered bicarb during resuscitation. ROSC briefly achieved, during which an ECG showed A-Fib RVR with ST elevations, and STEMI alert called. Stat Echo also obtained. Repeat critical lab panel sent, which this time revealed Hb down to 4.8. Plan initially to begin transfusing trauma blood while cath team mobilizing. However, within minutes, pt yet again lost a pulse and compressions resumed. At this time, family arrived. They were updated regarding her critical status and wished to see her. At bedside, the patient's , with patient's sister and several other family members present, was further updated and agreed that further resuscitative efforts were unlikely to result in a meaningful recovery. ACLS halted. Patient at 7:24p.
--- NOTE | 2019-05-24 20:41 | Anesthesia Progress Note ---
Date of Encounter: 05/24/19 Time of Encounter: 17:20 Anesthesia Note - Note Note: 05/24/19 20:18 Called to OR due to PEA arrest, pt was undergoing marsha arthroplasty per Dr Ibarra when she precipitously dropped her BP and ETCO2 and went into PEA arrest. We stared compressions and performed CPR for about 30mins with several rounds of Epi, bicarb and calcium - see anes record and code sheet for details, we had return of spontaneous circulation and R radial chinedu and RIJ was placed with ultrasound guidance, pt also developed flash pulmonary during CPR. Given patient history of hip fracture and prolonged best rest suspicion for PE or fat embolus was high. I also spoke to Dr Marques donkey engine firer/fireman air conditioning engineer about the patient who recommended we do a STAT echo to eval myocardial function and assess volume status as well. We transported the patient to ICU in critical condition and op epi and norepi drips, on arrival to ICU patient went into PEA arrest once again and CPR was initiated, resuscitative efforts did not produce spontaneous return of circulation and family was invited to see pt. Gave report to ICU physician and nurse and turned over further care of patient to them
[2019-05-24] MEDS ORDERED: *HR* EPINEPHrine 1 MG/10 ML SYRINGE IVP ONE (22:12)
[2019-05-25] MEDS ORDERED: cefTRIAXone 2,000 MG in Water for inj. (sterile) 20 ML IVP SCH (09:00)
== END 2019-05-24 22:13 | disposition expired | DRG 853 ==
LOC: EMEROOARM 12:33 → 3NENU 12:33 → SUATTDRO 16:39 → 3NENU 17:23 → ICNU 19:50 → 3NENU 05-23 12:42 → ICNU 05-24 17:39
PROVIDERS: ADMIT Student in an Organized Health Care Education/Training Program; ATTEND Internal Medicine